=== PATIENT | male | born 1950 | race Caucasian/White ===

== ENCOUNTER 2017-09-27 12:20 | Emergency (ER) | payer OTHER ==
[~2017-09-27] VITALS: Ht 188 cm; Wt 80.8 kg
[2017-09-27 12:29] VITALS: TEMP 36.8; Ht 188 cm; Wt 80.8 kg
[2017-09-27] MEDS ORDERED: LABETALOL HCL IV 5 MG/ML 20ML IV STA ×2 (13:47→15:30)
[2017-09-27 14:54] LABS: BASO % 0.2 %; BASO ABS # 0.03 K/uL (0-0.2); EOS % 0.4 %; EOS ABS # 0.05 K/uL (0-0.5); HEMATOCRIT 37.1 % (42-52); HEMOGLOBIN 12.9 g/dL (14.0-18.0); IG# 0.03 K/uL (0.00-0.02); LYMPH % 14.5 %; LYMPH ABS # 1.75 K/uL (1.2-3.4); MEAN CELL VOLUME 95.1 fL (80-100); MEAN CORPUSCULAR HEMOGLOBIN 33.1 pg (25-34); MEAN CORPUSCULAR HGB CONC 34.8 g/dl (32-36); MEAN PLATELET VOLUME 10.9 fL (7.4-10.4); MONO % 6.5 %; MONO ABS # 0.78 K/uL (0.11-0.59); NEUT % 78.2 %; NEUT ABS # 9.42 K/uL (1.4-6.5); PLATELET COUNT 269 K/uL (130-400); RED CELL DISTRIBUTION WIDTH CV 13.1 % (11.5-14.5); RED CELL DISTRIBUTION WIDTH SD 45.2 fL (36.4-46.3); WHITE BLOOD COUNT 12.06 K/uL (4.8-10.8)
[2017-09-27 15:03] LABS: PTT PATIENT 33.1 SECONDS (21.0-31.0)
[2017-09-27 15:06] LABS: ALBUMIN 3.9 gm/dl (3.4-5.0); ALT/SGPT 28 U/L (12-78); AST/SGOT 28 U/L (15-37); BLOOD UREA NITROGEN 7 mg/dl (7-18); CALCIUM 8.8 mg/dl (8.5-10.1); CARBON DIOXIDE 26 mmol/L (21-32); CREATININE 0.87 mg/dl (0.60-1.40); GLUCOSE 88 mg/dl (70-99); POTASSIUM 3.6 mmol/L (3.5-5.1); SODIUM 138 mmol/L (136-145)
[2017-09-27 15:11] LABS: ALKALINE PHOSPHATASE 93 U/L (45-117)
--- NOTE | 2017-09-27 16:24 | DIAGNOSTIC IMAGING REPORT ---
LEFT LOWER EXTREMITY VENOUS DOPPLER HISTORY: Left leg swelling. COMPARISON STUDY: None. FINDINGS: There is normal compressibility, flow, and augmentation within the left lower extremity deep venous system. IMPRESSION: No DVT within the left lower extremity. Electronically signed by: Eder Weldon M.D. 09/27/2017 4:23 PM Dictated Date/Time: 09/27/2017 4:17 PM
--- NOTE | 2017-09-27 16:26 | DIAGNOSTIC IMAGING REPORT ---
RIGHT UPPER EXTREMITY VENOUS DOPPLER HISTORY: right arm swelling eval for dvt COMPARISON STUDY: None. FINDINGS: The right internal jugular vein is patent. There is normal flow within the right subclavian vein. There is normal flow and compressibility within the right axillary, basilic, brachial, radial, ulnar, and visualized cephalic veins. Within the deep soft tissues of the right upper arm there is a complex avascular fluid collection measuring 10.3 x 5.3 x 4.4 cm. This appears to abut the humerus. IMPRESSION: No DVT within the right upper extremity. A 10.2 x 5.2 x 4.4 cm complex fluid collection within the deep soft tissues of the right upper arm. This is nonspecific but favors a hematoma. An abscess or cystic mass is considered less likely. However, follow-up is recommended to ensure resolution. Electronically signed by: Eder Weldon M.D. 09/27/2017 4:25 PM Dictated Date/Time: 09/27/2017 4:23 PM
[2017-09-27] MEDS ORDERED: CEPH500C PO (16:52)
[2017-09-27] MEDS ORDERED: SULF800T23 PO (16:52)
[2017-09-27] MEDS ORDERED: HYDROCHLOROTHIAZIDE 25 MG TAB PO STA (17:02)
[2017-09-27] MEDS ORDERED: HYDR12.56 PO (17:02)
[2017-09-27 17:21] VITALS: BP 176/91; PULSE 76; O2SAT 96
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
== END 2017-09-27 17:17 | disposition home or self-care (01) ==
LOC: C.EDB 12:22
DX: S40.021A Contusion of right upper arm, initial encounter (principal); S46.211A Strain of muscle, fascia and tendon of other parts of biceps, right arm, initial encounter; S80.922A Unspecified superficial injury of left lower leg, initial encounter; X58.XXXA Exposure to other specified factors, initial encounter; I10 Essential (primary) hypertension; F17.200 Nicotine dependence, unspecified, uncomplicated

== ENCOUNTER 2018-07-18 09:48 | Inpatient (IN) ==
[2018-07-18] MEDS ORDERED: CEFEPIME 2,000 MG/12.5 ML VIAL IV STA (10:34)
[2018-07-18 10:49] LABS: Basophils # (auto) 0.03 K/uL (0-0.2); Basophils % (auto) 0.2 %; Eosinophils # (auto) 0.06 K/uL (0-0.5); Eosinophils % (auto) 0.5 %; Hematocrit (blood only) 37.4 % (42-52); Immature Granulocytes # (auto) 0.06 K/uL (0.00-0.02); Immature Granulocytes % (auto) 0.5 %; Lymphocytes # (auto) 1.69 K/uL (1.2-3.4); Lymphocytes % (auto) 12.8 %; Mean Corpuscular Hgb Conc 34.8 g/dL (32-36); Mean Corpuscular Volume 94.7 fL (80-100); Mean Platelet Volume 10.5 fL (7.4-10.4); Monocytes % (auto) 7.6 %; Neutrophils # (auto) 10.33 K/uL (1.4-6.5); Neutrophils % (auto) 78.4 %; Platelet Count 437 K/uL (130-400); RDW Coefficient of Variation 12.7 % (11.5-14.5); RDW Standard Deviation 44.3 fL (36.4-46.3); Red Blood Count 3.95 M/uL (4.7-6.1); White Blood Count 13.17 K/uL (4.8-10.8)
[2018-07-18 10:56] LABS: Alanine Aminotransferase 58 U/L (12-78); Albumin Level 3.1 gm/dl (3.4-5.0); Aspartate Aminotransferase 41 U/L (15-37); BUN Creatinine Ratio 5.8 (10-20); Blood Urea Nitrogen 5 mg/dl (7-18); Calcium 9.3 mg/dl (8.5-10.1); Carbon Dioxide 23 mmol/L (21-32); Chloride 96 mmol/L (98-107); Est GFR (Non-African American) 88.9; Glucose 110 mg/dl (70-99); Potassium 3.7 mmol/L (3.5-5.1); Sodium 130 mmol/L (136-145)
[2018-07-18 10:59] LABS: Albumin Globulin Ratio 0.6 (0.9-2); Alkaline Phosphatase 97 U/L (45-117); Bilirubin,Total 0.7 mg/dl (0.2-1); Globulin 5.2 gm/dl (2.5-4.0); Total Protein 8.3 gm/dl (6.4-8.2)
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
[2018-07-18] MEDS ORDERED: INFLUENZA VACCINE HIGH DOSE 65+ 0.5 ML SYR IM ONE (14:30)
[2018-07-18] MEDS ORDERED: INFLUENZA ADMINISTRATION CHARGE ONE (14:30)
[2018-07-18] MEDS ORDERED: MoRPHine SULFATE 4 MG/ML 1 ML CARP\\VIAL IV PRN (14:44)
[2018-07-18] MEDS ORDERED: TRAMADOL HCL 50 MG TABLET PO PRN (14:44)
[2018-07-18] MEDS ORDERED: ACETAMINOPHEN 325 MG TAB PO PRN (14:44)
[2018-07-18] MEDS ORDERED: POLYETHYLENE (MIRALAX) 17 GM PACK PO PRN (14:44)
[2018-07-18] MEDS ORDERED: SODIUM CHLORIDE 0.9% 1000ML 1,000 ML IV ONE (14:44)
[2018-07-18] MEDS ORDERED: ONDANSETRON INJ 2 MG/ML 2 ML VIAL IV PRN (14:44)
[2018-07-18] MEDS ORDERED: CEFEPIME CONSULT ACTIVE PRN (14:59)
[2018-07-18] MEDS ORDERED: LORazepam 1 MG TAB PO PRN (15:50)
[2018-07-18 16:10] LABS: INR 1.1 (0.9-1.1); Partial Thromboplastin Ratio 1.4; Partial Thromboplastin Time 39.2 Seconds (21.0-31.0); Prothrombin Time 11.6 Seconds (9.0-12.0)
--- NOTE | 2018-07-18 18:27 | XRay Report ---
XR knee LT 2V routine CLINICAL HISTORY: 68 years-old Male presenting with old surgery. TECHNIQUE: Frontal and crosstable lateral views of the left knee were obtained. COMPARISON: 11/12/2009. FINDINGS: Multiple screw fixation as well as buttress plate and screw fixation of the prior comminuted intra-ar ticular tibial plateau fracture. No hardware breakage. Extensive posttraumatic deformity evident. Ost eopenia suggested. Advanced degenerative changes of the knee joint with a [id number] appearance of the medial compartment and joint space loss in the lateral compartment. Moderate knee joint effusion is present. Allowing for osteopenia, no acute fracture though the degree of posttraumatic deformity m akes evaluation difficult. Heterotopic ossification suggested projecting over the fibular head on fro ntal view. Atherosclerosis. Mild diffuse soft tissue swelling. IMPRESSION: 1. Extensive posttraumatic deformity with internal fixation of the prior tibial plateau fracture. 2. Advanced degenerative changes of the knee joint with a [id number] appearance at the medial comp artment. 3. The degree of posttraumatic deformity and the presence of osteopenia limits evaluation for acute osseous injury. Allowing for this, no hardware complication or acute osseous injury is apparent. Electronically signed by: Alfonso Almeida M.D. 07/18/2018 6:25 PM
[2018-07-18] MEDS: CEFEPIME 2,000 MG in SYRINGE 7.5 ML IV SCH (20:10)
[2018-07-18] MEDS: HEPARIN SOD 5,000 UNIT/0.5 ML VIAL SQ SCH (20:11)
--- NOTE | 2018-07-18 20:17 | History and Physical Report ---
DATE OF ADMISSION: 07/18/2018 CHIEF COMPLAINT: Left knee pain. HISTORY OF PRESENT ILLNESS: Denzel is roslyn, he is 68. He has had approximately a 5- to 7-day history of left knee pain and swelling. He presented evidently up at [facility]. He was aspirated, it was culture positive. He evidently signed out AMA and came to [facility]. I am not sure of how this all transpired. As of today on examination at approximately 5:30 p.m., he complains of some left knee pain, moderate in intensity, it is not severe. He has some swelling. He states that with his old surgery, he has some chronic swelling from time to time and in the past had been placed on p.o. antibiotics. PAST MEDICAL HISTORY: Hypertension. ALLERGIES: No known allergies. MEDICATIONS: Lisinopril. SOCIAL HISTORY: Positive for smoking and ETOH. REVIEW OF SYSTEMS: Denies any fevers, sweats, chills. He is not septic in overall appearance. Denies any blurred vision, double vision, confusion. Denies any chest pain, shortness of breath. No nausea, vomiting. He has musculoskeletal left lower extremity difficulty and pain. OBJECTIVE: GENERAL: He is alert, pleasant. He is comfortable. He is nonlabored. VITAL SIGNS: Temperature 36.7 oral, blood pressure 160/70, pulse 80. CARDIAC: Normal S1, S2, in sinus rhythm. LUNGS: Clear. ABDOMEN: Soft, nontender. EXTREMITIES: Specifically in regard to his left knee, he has some diffuse swelling, no gross deformity, but does have significant swelling. Well-healed medial based incision. He has some edema and cellulitis to lower extremity from the tibia downward. He has some small areas where his skin has actually formed ulcerations. MUSCULOSKELETAL: He has decreased range of motion. He has moderate pain with flexion and extension. He has no gross instability. LABORATORY DATA: White cell count 13.1, hematocrit 37.4, his neutrophils are elevated at 10.3, monocytes elevated to 1.0. IMAGING DATA: I did order some x-rays just today. I do not have any to look at from the computer. ASSESSMENT: Roslyn gentleman, 68, with septic arthritis of the left knee secondary to open reduction internal fixation done approximately 9 years ago. He also may have some failure of hardware. He is culture positive for septic arthritis. PLAN: At this point in time, we are not planning any urgent surgery on Mr. Farias. With the IV antibiotics to take effect at least for 24-48 hours, they do not have a planned approach. He may have to have removal of his hardware and his knee joint cleaned out, packed open. He might need a long-term PICC line. It is a little too early to tell at this point in time. His culture from [facility] was pseudomonas. I will follow along with you on a daily basis. If he needs definitive surgery, will have to ____ one of our knee specialists as well.
[2018-07-19] MEDS: CEFEPIME 2,000 MG in SYRINGE 7.5 ML IV SCH ×3 (04:19→21:09)
[2018-07-19 06:53] LABS: Basophils # (auto) 0.04 K/uL (0-0.2); Basophils % (auto) 0.4 %; Eosinophils # (auto) 0.07 K/uL (0-0.5); Eosinophils % (auto) 0.7 %; Hematocrit (blood only) 32.2 % (42-52); Hemoglobin 11.2 g/dL (14.0-18.0); Immature Granulocytes # (auto) 0.04 K/uL (0.00-0.02); Immature Granulocytes % (auto) 0.4 %; Lymphocytes # (auto) 1.77 K/uL (1.2-3.4); Lymphocytes % (auto) 17.9 %; Mean Corpuscular Hgb Conc 34.8 g/dL (32-36); Mean Corpuscular Volume 94.4 fL (80-100); Mean Platelet Volume 10.3 fL (7.4-10.4); Monocytes # (auto) 0.94 K/uL (0.11-0.59); Monocytes % (auto) 9.5 %; Neutrophils # (auto) 7.01 K/uL (1.4-6.5); Neutrophils % (auto) 71.1 %; Platelet Count 372 K/uL (130-400); RDW Coefficient of Variation 12.8 % (11.5-14.5); RDW Standard Deviation 43.7 fL (36.4-46.3); Red Blood Count 3.41 M/uL (4.7-6.1); White Blood Count 9.87 K/uL (4.8-10.8)
[2018-07-19 07:20] LABS: BUN Creatinine Ratio 10.5 (10-20); Calcium 8.7 mg/dl (8.5-10.1); Creatinine Clr Calc Pharmacy 108.5 ml/min; Est GFR (African American) 110.6; Est GFR (Non-African American) 95.4; Potassium 3.9 mmol/L (3.5-5.1)
--- NOTE | 2018-07-19 08:38 | Progress Note ---
DATE: 07/19/2018 SUBJECTIVE: He is alert, oriented this morning. Minimal complaints of pain. Swelling in his left lower extremity has decreased. He does feel subjectively better. OBJECTIVE: Temperature 36.8, blood pressure controlled, pulse 80. ASSESSMENT: Hypertension, left knee surgery reconstruction, left knee osteomyelitis. PLAN: At this point in time, I would go with the IV antibiotics. We were not planning any type of surgical intervention at this . I did discuss this with the patient. I feel he is going to need a significant reconstruction of his knee. I think his knee will be staged, removal of implants, IV antibiotics. Antibiotic beads packed with antibiotic solution and then eventually if the infection is completely cleared, may be a total knee replacement. I told him in my opinion, this will be best served at [facility] where they have assortment of experts and a team of physicians who can handle this very complicated problem. We will continue to follow him, again not planning any surgical intervention. We will continue with the IV antibiotics. I do think he will need a follow up at [facility].
[2018-07-19] MEDS: HEPARIN SOD 5,000 UNIT/0.5 ML VIAL SQ SCH ×2 (09:01→21:09)
[2018-07-19] MEDS: LISINOPRIL 10 MG TAB PO SCH (09:02)
[2018-07-19] MEDS: THIAMINE HCL 100 MG TAB PO SCH (09:03)
[2018-07-19] MEDS: FOLIC ACID 1 MG TAB PO SCH (09:03)
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
[2018-07-20] MEDS: CEFEPIME 2,000 MG in SYRINGE 7.5 ML IV SCH ×2 (04:02→12:16)
[2018-07-20 06:45] LABS: Hematocrit (blood only) 32.4 % (42-52); Hemoglobin 10.7 g/dL (14.0-18.0); Mean Corpuscular Volume 94.7 fL (80-100); Mean Platelet Volume 10.2 fL (7.4-10.4); Platelet Count 400 K/uL (130-400); RDW Coefficient of Variation 12.8 % (11.5-14.5); Red Blood Count 3.42 M/uL (4.7-6.1); White Blood Count 11.11 K/uL (4.8-10.8)
[2018-07-20 07:21] LABS: BUN Creatinine Ratio 8.6 (10-20); Calcium 8.9 mg/dl (8.5-10.1); Creatinine Clr Calc Pharmacy 99.1 ml/min; Est GFR (African American) 106.6; Potassium 4.1 mmol/L (3.5-5.1)
[2018-07-20] MEDS: HEPARIN SOD 5,000 UNIT/0.5 ML VIAL SQ SCH (09:23)
[2018-07-20] MEDS: THIAMINE HCL 100 MG TAB PO SCH (09:24)
[2018-07-20] MEDS: LISINOPRIL 10 MG TAB PO SCH (09:24)
[2018-07-20] MEDS: FOLIC ACID 1 MG TAB PO SCH (09:24)
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
[2018-07-20] MEDS ORDERED: CIPROFLOXACIN 250 MG TAB PO ONE (13:00)
--- NOTE | 2018-07-20 13:57 | Progress Note ---
DATE: 07/20/2018 Denzel is alert and oriented this morning. Minimal complaints of pain. His swelling has decreased. His pain is controlled. White cell count down to 11.1, hemoglobin 10.7. His knee seems to be improving. Cellulitis, discoloration and swelling decreased. X-rays reviewed. IMPRESSION: Complex tibial plateau fracture, treated with operative repair several years ago, now with significant degenerative changes and potential knee infection, currently being treated as such. PLAN: I would recommend a PICC line, which he is going. IV antibiotics per the cultures. I recommend he follows up with a reconstructive specialist up in [facility] for his knee issue.
[2018-07-20] MEDS ORDERED: CIPROFLOXACIN 250 MG TAB PO SCH (22:00)
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
== END 2018-07-20 13:23 | disposition home or self-care (01) | DRG 923 ==
LOC: ED 09:48 → 3N 13:25 → SUATTDRO 13:25 → 3N 14:27

== ENCOUNTER 2022-04-15 15:29 | Inpatient (IN) ==
--- NOTE | 2022-04-15 15:43 | ED Triage Note ---
Date of Service April 15, 2022 History of Present Illness This patient was briefly evaluated while in triage. An abbreviated physical exam was performed. This patient is a 72-year-old with past medical history of pseudomonas infection, septic joint, HTN, who presents to the ED for evaluation of lighthe adedness. Symptoms ongoing x1 month. Called PCP today, has not had workup completed. Pt. believes he passed out and fell recently. Physical Exam VITALS: Vitals are noted on the nurse's note and reviewed by myself. GENERAL: This is a 72 year old male, ill appearing, in no acute distress, nondiaphoretic, well-developed well-nourished. SKIN: No obvious rashes, edema, erythema HEAD: Normocephalic atraumatic. EYES: Conjunctivae without injection, sclerae without icterus. NECK: No JVD. LUNGS: No retractions or accessory muscle use. MUSCULOSKELETAL: Pt. presents in a wheelchair. NEURO: Patient was alert and oriented to person place and time. No focal neurological deficits. Initial orders for labs and / or imaging were placed and patient was placed in the waiting area until a bed is available. Please see further documentation for the full ED course.
[2022-04-15] MEDS ORDERED: SODIUM CHLORIDE 0.9% 1000ML 1,000 ML IV SCH (15:45)
[2022-04-15] MEDS ORDERED: SODIUM CHLORIDE 0.9% 1000ML 2,000 ML IV ONE (15:58)
[2022-04-15] MEDS ORDERED: CEFEPIME 2,000 MG/20 ML VIAL IV STA (15:59)
--- NOTE | 2022-04-15 16:00 | Emergency Department Note ---
Impression & Plan Sepsis, Acute hypotension, Pseudomonas aeruginosa infection, Hyponatremia, Hypokalemia, Pneumomediastinum ED Provider Note NAME: RONDA YANES AGE: 72 SEX: M : 1950 ARRIVES VIA: Walk-In INFORMANT: Patient ED PROVIDER(S): Jeremie Thomason DO CHIEF COMPLAINT: weakness HPI: Patient is a 72-year-old male with a past medical history of a septic joint, Pseudomonas infection of the left lower extremity who presents to the ER status post fall/syncope this morning. He notes he was coming out of the bathroom and passed out. He has felt very lightheaded all day. He has been losing weight over the past year. He denies any headache or change in vision. No chest pain or shortness of breath. No belly pain, nausea, vomiting or diarrhea. No dysuria, urgency or frequency. No weakness or numbness in the arms or legs. Does complain of some right shoulder pain. ROS: See above HPI for pertinent positives & negatives. A total of 10 systems reviewed and were otherwise negative. PAST MEDICAL HISTORY:See Below PAST SURGICAL HISTORY:See Below FAMILY HISTORY:See Below SOCIAL HISTORY:See Below HOME MEDICATIONS:See Below ALLERGIES:See Below VITALS:See Below PHYSICAL EXAMINATION: GENERAL: Sitting up in bed, alert, chronically ill-appearing, cachectic, dishev eled HEAD: NC/AT EYE EXAM: normal conjunctiva. PERRL and EOM's intact. OROPHARYNX: mucous membranes are moist NECK: supple, no nuchal rigidity, no adenopathy, non-tender LUNGS: Clear to auscultation. Normal chest wall mechanics HEART: tachy, S1 normal and S2 normal ABDOMEN: abdomen soft, non-tender, normo-active bowel sounds, no masses, no rebound or guarding. BACK: Back is symmetrical on inspection and there is no deformity, no midline tenderness, no CVA tenderness. UPPER EXTREMITIES: upper extremities are grossly normal. LOWER EXTREMITIES: No pitting edema. NEURO EXAM: Normal sensorium, cranial nerves II-XII intact, normal speech, no weakness of arms, no weakness of legs. No drift. Finger to nose intact. Gross sensation intact. MEDICAL DECISION MAKING: Patient is a 72-year-old male who presents the ER with above-stated complaint. He is found to be hypotensive with systolic pressures in the 60s. IV was established blood work was obtained. Labs show a leukocytosis of 19,000. No significant anemia. INR unremarkable. BMP with a hyponatremia at 127. Hypokalemia 2.7. Lactate elevated 2.4. LFTs were unremarkable. Troponin elevated 25. TSH unremarkable. UA was clean. Chest x-ray as well as CT of the head and neck was fairly unremarkable. X-ray showed no acute fracture. Patient has an obvious infection of the left lee. Patient was given IV antibiotics including vancomycin and cefepime. He was updated at bedside. Discussed with the hospitalist. Admitted to hospital for further evaluation admission with resolution of the hypotension following IV fluids and IV antibiotics. Following mission CT of the chest abdomen pelvis was obtained to the hospitalist and showed likely mediastinitis. Triage Nursing notes reviewed. Limited review of prior medical records performed Vital Signs: reviewed and remarkable for Hypotension Differential diagnosis: Differential diagnosis includes etiologies such as vasovagal event, infection, hypoglycemia, electrolyte abnormalities, cardiac sources, intracerebral event, toxicologic, neurologic, as well as others were entertained. ER treatment provided: See below Diagnostics interpreted by me: ECG: Sinus tachycardia rate of 103 Normal axis No PVCs QTC 461 Cardiac Monitoring: An order was placed for continuous cardiac monitoring. The m onitor shows a rate of 101 with sinus rhythm. Laboratory studies: As stated above and show below. Imaging studies: As described above Consultation(s): none Procedures: none Critical Care: I have personally spent 32 minutes of critical care time in the direct managemen t of this patient. This includes bedside care, interpretation of diagnostic studies, and testing, discussion with consultants, patient, and family members, and other required patient management activities. This 32 minutes is in excess of all separately billable procedures. Past Med/Surg History Medical History HTN (hypertension) Smoker Surgical History H/O left knee surgery History of surgery on lower extremity Family History Father Alzheimer disease Mother Hypertension Social History (Updated 04/15/22 @ 18:34 by Sunita Vera DO) Smoking Status: Current every day smoker Tobacco Type: Cigarettes Cigarettes Per Day: 5-10 cigarettes daily; Hx Alcohol Use: Yes Alcohol type: beer Alcohol Intake Frequency: 2-3 x/Week Alcohol Intake Frequency Comment: 6 beers per night but hasnt drank in a month Hx Substance Use: No Preferred Language: Wolof Communication Ability: Effective Beliefs That Will Affect Care: None marital status: Single Current Living Situation: Significant Other Feels Safe at Home: Yes Assistive Devices: Cane Allergies Allergies Allergy/AdvReac Type Severity Reaction Status Date / Time No Known Allergies Allergy Verified 09/27/17 13:03 Home Meds Home Medications Medication Instructions Recorded Confirmed lisinopril 10 mg tablet 10 mg PO DAILY 07/18/18 04/15/22 Previous Rx's Medication Instructions Recorded Lactobacillus acidoph-L.bulgaricus 2 tab PO BID #60 tabs 07/20/18 1 million cell chewable tablet (Lactinex) Results & Data (ED) Vital Signs Vital Signs - 24 hr 04/15/22 15:41 04/15/22 16:53 04/15/22 16:53 Temperature 36.7 C Temperature Source Temporal Artery Scan Pulse Rate 87 Pulse Rate [Apical] 122 H Pulse Rhythm Regular Pulse Strength Normal Respiratory Rate 18 20 Respiratory Effort / Characteristics Non-Labored Spontaneous Respiratory Depth Normal Respiratory Pattern Regular Blood Pressure 64/41 L Blood Pressure [Right Arm] 140/80 Blood Pressure Mean 48 Blood Pressure Mean [Right Arm] 100 Blood Pressure Position Sitting Pulse Oximetry 100 95 Oxygen Delivery Method Room Air Room Air Sepsis Recent Fever Within 48 Hours No Sepsis New/Unexplained Change in Mental Status No Sepsis Action Taken by Nursing No Action Required 04/15/22 16:53 04/15/22 17:44 Temperature Temperature Source Pulse Rate 122 H Pulse Rate [Apical] 111 H Pulse Rhythm Pulse Strength Respiratory Rate 20 18 Respiratory Effort / Characteristics Respiratory Depth Respiratory Pattern Blood Pressure Blood Pressure [Right Arm] 109/55 L Blood Pressure Mean Blood Pressure Mean [Right Arm] 73 Blood Pressure Position Pulse Oximetry 95 Oxygen Delivery Method Room Air Sepsis Recent Fever Within 48 Hours Sepsis New/Unexplained Change in Mental Status Sepsis Action Taken by Nursing Laboratory Data Result diagrams: 04/15/22 15:51 04/15/22 15:51 Lab Results 04/15/22 04/15/22 04/15/22 Range/Units 15:51 15:51 15:51 WBC 19.44 H (4.8-10.8) K/ul RBC 3.28 L (4.63-6.08) M/uL Hgb 10.7 L (14.0-18.0) g/dl Hct 30.9 L (40.1-51.0) % MCV 94.2 (80.0-100.0) fL MCH 32.6 (25.0-34.0) pg MCHC 34.6 (32.0-36.0) g/dL RDW Std Deviation 46.2 (36.4-46.3) fL RDW Coeff of [place] 13.4 (11.5-14.5) % Plt Count 301 (130-400) K/uL MPV 10.8 (9.4-12.4) fL Immature Gran % (Auto) 0.7 % Neut % (Auto) 83.3 % Lymph % (Auto) 8.1 % [place] % (Auto) 7.5 % Eos % (Auto) 0.2 % Baso % (Auto) 0.2 % Neut # (Auto) 16.22 H (1.4-6.5) K/uL Lymph # (Auto) 1.57 (1.2-3.4) K/uL [place] # (Auto) 1.45 H (0.24-0.82) K/uL Eos # (Auto) 0.03 (0-0.50) K/uL Baso # (Auto) 0.03 (0-0.2) K/uL Immature Gran # (Auto) 0.14 H (0.00-0.02) K/uL PT 11.5 (9.0-12.0) Seconds INR 1.1 (0.9-1.1) APTT 35.7 H (21.0-31.0) Seconds PTT Ratio 1.3 Sodium (136-145) mmol/L Potassium (3.5-5.1) mmol/L Chloride (98-107) mmol/L Carbon Dioxide (21-32) mmol/L Anion Gap (3-11) BUN (6-23) mg/dl Creatinine (0.6-1.4) mg/dl Est Cr Clr Drug Dosing Est GFR ( Amer) ml/min Est GFR (Non-Af Amer) ml/min BUN/Creatinine Ratio (10-20) Glucose (70-99(Fasting)) mg/dl Osmolality (280-300) mOsm/kg Calcium (8.5-10.1) mg/dl Phosphorus (2.5-4.9) mg/dl Magnesium (1.7-2.4) mg/dl Iron (35-175) mcg/dl Unsaturated IBC (155-355) mcg/dl Ferritin (8-388) ng/ml Total Bilirubin (0.2-1.0) mg/dl AST (13-39) U/L ALT (7-52) U/L Alkaline Phosphatase (34-104) U/L Total Creatine Kinase (30-223) U/L Troponin I High Sens (0-20) pg/ml Total Protein (6.0-8.3) gm/dl Albumin (3.4-5.0) gm/dl Globulin (2.5-4.0) gm/dl Albumin/Globulin Ratio (0.9-2) Procalcitonin (0-0.5) ng/ml TSH (0.300-4.500) uIu/ml Urine Color Urine Appearance (Clear) Urine pH (4.5-7.5) Ur Specific [place] (1.000-1.030) Urine Protein (Negative) Urine Glucose (UA) (Negative) Urine Ketones (Negative) Urine Blood (Negative) Urine Nitrite (Negative) Urine Bilirubin (Negative) Urine Urobilinogen (Negative) Ur Leukocyte Esterase (Negative) SARS-CoV-2 (PCR) (Negative) Influenza Type A (PCR) (Neg) Influenza Type B (PCR) (Neg) RSV (RT-PCR) (Neg) Blood Type O Positive Antibody Screen NEGATIVE 04/15/22 04/15/22 04/15/22 Range/Units 15:51 15:51 15:51 WBC (4.8-10.8) K/ul RBC (4.63-6.08) M/uL Hgb (14.0-18.0) g/dl Hct (40.1-51.0) % MCV (80.0-100.0) fL MCH (25.0-34.0) pg MCHC (32.0-36.0) g/dL RDW Std Deviation (36.4-46.3) fL RDW Coeff of [place] (11.5-14.5) % Plt Count (130-400) K/uL MPV (9.4-12.4) fL Immature Gran % (Auto) % Neut % (Auto) % Lymph % (Auto) % [place] % (Auto) % Eos % (Auto) % Baso % (Auto) % Neut # (Auto) (1.4-6.5) K/uL Lymph # (Auto) (1.2-3.4) K/uL [place] # (Auto) (0.24-0.82) K/uL Eos # (Auto) (0-0.50) K/uL Baso # (Auto) (0-0.2) K/uL Immature Gran # (Auto) (0.00-0.02) K/uL PT (9.0-12.0) Seconds INR (0.9-1.1) APTT (21.0-31.0) Seconds PTT Ratio Sodium 127 L (136-145) mmol/L Potassium 2.7 L (3.5-5.1) mmol/L Chloride 86 L (98-107) mmol/L Carbon Dioxide 30 (21-32) mmol/L Anion Gap 11 (3-11) BUN 13 (6-23) mg/dl Creatinine 1.03 (0.6-1.4) mg/dl Est Cr Clr Drug Dosing Not Reportable Est GFR ( Amer) 84.3 ml/min Est GFR (Non-Af Amer) 72.7 ml/min BUN/Creatinine Ratio 12.6 (10-20) Glucose 117 H (70-99(Fasting)) mg/dl Osmolality (280-300) mOsm/kg Calcium 9.3 (8.5-10.1) mg/dl Phosphorus 3.1 (2.5-4.9) mg/dl Magnesium 1.6 L (1.7-2.4) mg/dl Iron 57 (35-175) mcg/dl Unsaturated IBC 181 (155-355) mcg/dl Ferritin 992.6 H (8-388) ng/ml Total Bilirubin 1.3 H (0.2-1.0) mg/dl AST 23 (13-39) U/L ALT 18 (7-52) U/L Alkaline Phosphatase 84 (34-104) U/L Total Creatine Kinase 137 (30-223) U/L Troponin I High Sens 25.2 H (0-20) pg/ml Total Protein 6.9 (6.0-8.3) gm/dl Albumin 3.8 (3.4-5.0) gm/dl Globulin 3.1 (2.5-4.0) gm/dl Albumin/Globulin Ratio 1.2 (0.9-2) Procalcitonin (0-0.5) ng/ml TSH 1.483 (0.300-4.500) uIu/ml Urine Color Urine Appearance (Clear) Urine pH (4.5-7.5) Ur Specific [place] (1.000-1.030) Urine Protein (Negative) Urine Glucose (UA) (Negative) Urine Ketones (Negative) Urine Blood (Negative) Urine Nitrite (Negative) Urine Bilirubin (Negative) Urine Urobilinogen (Negative) Ur Leukocyte Esterase (Negative) SARS-CoV-2 (PCR) (Negative) Influenza Type A (PCR) (Neg) Influenza Type B (PCR) (Neg) RSV (RT-PCR) (Neg) Blood Type Antibody Screen 04/15/22 04/15/22 04/15/22 Range/Units 15:51 15:51 16:47 WBC (4.8-10.8) K/ul RBC (4.63-6.08) M/uL Hgb (14.0-18.0) g/dl Hct (40.1-51.0) % MCV (80.0-100.0) fL MCH (25.0-34.0) pg MCHC (32.0-36.0) g/dL RDW Std Deviation (36.4-46.3) fL RDW Coeff of [place] (11.5-14.5) % Plt Count (130-400) K/uL MPV (9.4-12.4) fL Immature Gran % (Auto) % Neut % (Auto) % Lymph % (Auto) % [place] % (Auto) % Eos % (Auto) % Baso % (Auto) % Neut # (Auto) (1.4-6.5) K/uL Lymph # (Auto) (1.2-3.4) K/uL [place] # (Auto) (0.24-0.82) K/uL Eos # (Auto) (0-0.50) K/uL Baso # (Auto) (0-0.2) K/uL Immature Gran # (Auto) (0.00-0.02) K/uL PT (9.0-12.0) Seconds INR (0.9-1.1) APTT (21.0-31.0) Seconds PTT Ratio Sodium (136-145) mmol/L Potassium (3.5-5.1) mmol/L Chloride (98-107) mmol/L Carbon Dioxide (21-32) mmol/L Anion Gap (3-11) BUN (6-23) mg/dl Creatinine (0.6-1.4) mg/dl Est Cr Clr Drug Dosing Est GFR ( Amer) ml/min Est GFR (Non-Af Amer) ml/min BUN/Creatinine Ratio (10-20) Glucose (70-99(Fasting)) mg/dl Osmolality 261 L (280-300) mOsm/kg Calcium (8.5-10.1) mg/dl Phosphorus (2.5-4.9) mg/dl Magnesium (1.7-2.4) mg/dl Iron (35-175) mcg/dl Unsaturated IBC (155-355) mcg/dl Ferritin (8-388) ng/ml Total Bilirubin (0.2-1.0) mg/dl AST (13-39) U/L ALT (7-52) U/L Alkaline Phosphatase (34-104) U/L Total Creatine Kinase (30-223) U/L Troponin I High Sens (0-20) pg/ml Total Protein (6.0-8.3) gm/dl Albumin (3.4-5.0) gm/dl Globulin (2.5-4.0) gm/dl Albumin/Globulin Ratio (0.9-2) Procalcitonin 0.06 (0-0.5) ng/ml TSH (0.300-4.500) uIu/ml Urine Color Urine Appearance (Clear) Urine pH (4.5-7.5) Ur Specific [place] (1.000-1.030) Urine Protein (Negative) Urine Glucose (UA) (Negative) Urine Ketones (Negative) Urine Blood (Negative) Urine Nitrite (Negative) Urine Bilirubin (Negative) Urine Urobilinogen (Negative) Ur Leukocyte Esterase (Negative) SARS-CoV-2 (PCR) NEGATIVE (Negative) Influenza Type A (PCR) Negative (Neg) Influenza Type B (PCR) Negative (Neg) RSV (RT-PCR) Negative (Neg) Blood Type Antibody Screen 04/15/22 Range/Units 17:40 WBC (4.8-10.8) K/ul RBC (4.63-6.08) M/uL Hgb (14.0-18.0) g/dl Hct (40.1-51.0) % MCV (80.0-100.0) fL MCH (25.0-34.0) pg MCHC (32.0-36.0) g/dL RDW Std Deviation (36.4-46.3) fL RDW Coeff of [place] (11.5-14.5) % Plt Count (130-400) K/uL MPV (9.4-12.4) fL Immature Gran % (Auto) % Neut % (Auto) % Lymph % (Auto) % [place] % (Auto) % Eos % (Auto) % Baso % (Auto) % Neut # (Auto) (1.4-6.5) K/uL Lymph # (Auto) (1.2-3.4) K/uL [place] # (Auto) (0.24-0.82) K/uL Eos # (Auto) (0-0.50) K/uL Baso # (Auto) (0-0.2) K/uL Immature Gran # (Auto) (0.00-0.02) K/uL PT (9.0-12.0) Seconds INR (0.9-1.1) APTT (21.0-31.0) Seconds PTT Ratio Sodium (136-145) mmol/L Potassium (3.5-5.1) mmol/L Chloride (98-107) mmol/L Carbon Dioxide (21-32) mmol/L Anion Gap (3-11) BUN (6-23) mg/dl Creatinine (0.6-1.4) mg/dl Est Cr Clr Drug Dosing Est GFR ( Amer) ml/min Est GFR (Non-Af Amer) ml/min BUN/Creatinine Ratio (10-20) Glucose (70-99(Fasting)) mg/dl Osmolality (280-300) mOsm/kg Calcium (8.5-10.1) mg/dl Phosphorus (2.5-4.9) mg/dl Magnesium (1.7-2.4) mg/dl Iron (35-175) mcg/dl Unsaturated IBC (155-355) mcg/dl Ferritin (8-388) ng/ml Total Bilirubin (0.2-1.0) mg/dl AST (13-39) U/L ALT (7-52) U/L Alkaline Phosphatase (34-104) U/L Total Creatine Kinase (30-223) U/L Troponin I High Sens (0-20) pg/ml Total Protein (6.0-8.3) gm/dl Albumin (3.4-5.0) gm/dl Globulin (2.5-4.0) gm/dl Albumin/Globulin Ratio (0.9-2) Procalcitonin (0-0.5) ng/ml TSH (0.300-4.500) uIu/ml Urine Color Yellow Urine Appearance Clear (Clear) Urine pH 7.0 (4.5-7.5) Ur Specific [place] 1.005 (1.000-1.030) Urine Protein Negative (Negative) Urine Glucose (UA) Negative (Negative) Urine Ketones Negative (Negative) Urine Blood Negative (Negative) Urine Nitrite Negative (Negative) Urine Bilirubin Negative (Negative) Urine Urobilinogen Negative (Negative) Ur Leukocyte Esterase Negative (Negative) SARS-CoV-2 (PCR) (Negative) Influenza Type A (PCR) (Neg) Influenza Type B (PCR) (Neg) RSV (RT-PCR) (Neg) Blood Type Antibody Screen Administered Medications Pantoprazole Sodium 40 mg/ (Dextrose) 100 mls @ 20 mls/hr IV Q5H NURIA Stop: 05/15/22 19:29 Last Admin: 04/15/22 22:28 Dose: 8 mg/hr, 20 mls/hr Documented By: MED Discontinued Medications Sodium Chloride (Nss 1000ml) 1,000 mls @ 999 mls/hr IV .Q1H1M NURIA Stop: 04/15/22 16:45 Last Infusion: 04/15/22 17:27 Dose: 0 mls/hr Documented By: Admin: 04/15/22 16:25 Dose: 999 mls/hr Documented By: CLAUDE Sodium Chloride (Nss 1000ml) 2,000 mls @ 999 mls/hr IV .Q2H1M ONE Stop: 04/15/22 17:58 Last Infusion: 04/15/22 18:48 Dose: 0 mls/hr Documented By: Admin: 04/15/22 16:25 Dose: 999 mls/hr Documented By: CLAUDE Cefepime HCl (Maxipime) 2,000 mg in 20 mls @ 5 mls/min IV NOW STA; Protocol Stop: 04/15/22 16:02 Last Admin: 04/15/22 16:25 Dose: 5 mls/min Documented By: CLAUDE Potassium Chloride (K Neel / Wtr) 10 meq in 100 mls @ 100 mls/hr IV Q1H NURIA; Protocol Stop: 04/15/22 19:29 Last Infusion: 04/15/22 20:19 Dose: 0 mls/hr Documented By: wire drawing machine tender: 04/15/22 19:28 Dose: 100 mls/hr Documented By: Infusion: 04/15/22 19:16 Dose: 0 mls/hr Documented By: wire drawing machine tender: 04/15/22 17:32 Dose: 100 mls/hr Documented By: OL Vancomycin HCl 1,250 mg/ (Sodium Chloride) 525 mls @ 200 mls/hr IV NOW ONE Stop: 04/15/22 20:43 Last Admin: 04/15/22 19:28 Dose: 200 mls/hr Documented By: CLAUDE Pantoprazole Sodium 80 mg/ (Dextrose) 120 mls @ 400 mls/hr IV NOW ONE Stop: 04/15/22 19:32 Last Admin: 04/15/22 22:05 Dose: 400 mls/hr Documented By: MED Potassium Chloride (Potassium Chloride Crtab 20 Meq Tabcr) 40 meq PO NOW STA Stop: 04/15/22 18:45 Last Admin: 04/15/22 20:15 Dose: 40 meq Documented By: MED Imaging Data Radiologist's Impression: Chest X-Ray 04/15/22 15:44 XR chest 1V portable HISTORY: 72 years-old Male weakness acute weakness COMPARISON: None TECHNIQUE: AP view of the chest FINDINGS: Cardiac mediastinal and hilar silhouettes are within normal limits. Lungs are mildly hyperinflated. No pneumothorax, pleural effusion, airspace consolidation or overt pulmonary edema. There is a questioned nodular focus overlying the right lateral upper chest at the level of the inferior scapula. Degenerative changes of the shoulders and spine. Mild lumbar levoscoliosis. IMPRESSION: 1. Hyperinflation without acute process of the chest. 2. Questioned ill-defined nodular density of the right lateral upper lung is favored to represent summation density. Attention at follow-up recommended. ACT 112: Negative or not required by law. The above report was generated using voice recognition software. It may contain grammatical, syntax or spelling errors. Electronically signed by: Bhavik Salgado M.D. 04/15/2022 6:[address] 04/15/22 15:58 CT cervical spine wo con CLINICAL HISTORY: 72 years-old Male with fall. Acute head and neck injury status post fall COMPARISON: Head CT of same day TECHNIQUE: Multiple axial CT images of the cervical spine were obtained without contrast. A dose lowering technique was utilized adhering to the principles of ALARA. FINDINGS: C7 vertebral body hemangioma. Moderate mid to lower cervical spine predominant spondylitic spurring with at least mild multilevel intervertebral disc space narrowing and mild to moderate facet arthrosis. Nuchal ligament calcifications. Moderate C1-C2 degeneration. No acute cervical spine fracture or subluxation. Demineralization of the hard palate and maxilla. The patient is jeremy ntulous. Postoperative changes of the paranasal sinuses. Multilevel neural foraminal narrowing. Mild biapical pleural-parenchymal scarring without pneumothorax. No prevertebral edema. Calcified plaque of the carotid bulbs. IMPRESSION: No acute cervical spine fracture or subluxation. ACT 112: Negative or not required by law. The above report was generated using voice recognition software. It may contain grammatical, syntax or spelling errors. Electronically signed by: Bhavik Salgado M.D. 04/15/2022 5:[address] 04/15/22 15:58 CT head/brain wo con CLINICAL HISTORY: 72 years-old Male with west. Acute headache TECHNIQUE: Multiple axial CT images of the head were obtained without contrast. A dose lowering technique was utilized adhering to the principles of ALARA. CT DOSE: 1037.05 mGy.cm COMPARISON: CT cervical spine of same day FINDINGS: No acute intracranial hemorrhage, midline shift, intracranial mass, hydrocephalus, territorial ischemia or abnormal extra-axial collection. Involutional changes. Cerebral vascular calcifications. The calvarium is intact. Mastoid air cells are clear. Postoperative changes of the paranasal sinuses with mild mucosal thickening. IMPRESSION: No acute intracranial abnormality. ACT 112: Negative or not required by law. The above report was generated using voice recognition software. It may contain grammatical, syntax or spelling errors. Electronically signed by: Bhavik Salgado M.D. 04/15/2022 5:30 PM Tibia/Fibula X-Ray 04/15/22 16:00 XR tibia fibula LT 2V HISTORY: 72 years-old Male l tib pain acute pain of the left lower leg COMPARISON: Left knee radiographs 07/18/2018 TECHNIQUE: 2 views of the left tibia and fibula FINDINGS: Extensive ORIF changes of the tibia are redemonstrated which includes proximal large cannulated screws with lateral diaphyseal plate and screw fusion. No evidence of hardware complication identified. Spurring of the calcaneus. Severe tricompartmental osteoarthritis of the knee. Osteoarthritis of the knee and ankle also noted. Arterial calcifications. No acute fracture or dislocation identified. Soft tissue prominence of the lower leg. IMPRESSION: 1. No acute fracture or dislocation identified. 2. Degenerative and postoperative changes as above. ACT 112: Negative or not required by law. The above report was generated using voice recognition software. It may contain grammatical, syntax or spelling errors. Electronically signed by: Bhavik Salgado M.D. 04/15/2022 4:34 PM Shoulder X-Ray 04/15/22 16:01 XR shoulder RT min 2V routine CLINICAL HISTORY: r shoulder pain TECHNIQUE: 3 views of the right shoulder were obtained. Comparison: None available at the time of this dictation. FINDINGS: There is no evidence of an acute fracture. Degenerative changes are seen in the glenohumeral joint. The overlying soft tissues are unremarkable. The visualized portions of the lungs are clear. IMPRESSION: Degenerative changes without evidence of acute abnormality. ACT 112: Negative or not required by law. Electronically signed by: Owen Bledsoe M.D. 04/15/2022 4:34 PM Femur X-Ray 04/15/22 17:52 XR hip RT 2V w pelvis, XR femur RT 2V routine HISTORY: 72 years-old Male r hip pain s/p fall . Acute pain of the right hip a nd thigh status post fall COMPARISON: None TECHNIQUE: AP view of the pelvis with 2 views the right hip and 2 views of the right femur FINDINGS: PELVIS/RIGHT HIP: Demineralized appearance of the bones with moderate osteoarthritis of the hips. No acute fracture, dislocation, or avascular necrosis. Arterial calcifications. Unremarkable soft tissues. RIGHT FEMUR: Arterial calcifications. No acute fracture, dislocation or large joint effusion of the knee identified. There is at least mild tricompartmental osteoarthritis of the right knee. Partially imaged left knee hardware. IMPRESSION: No acute fracture or dislocation. ACT 112: Negative or not required by law. The above report was generated using voice recognition software. It may contain grammatical, syntax or spelling errors. Electronically signed by: Bhavik Salgado M.D. 04/15/2022 6:42 PM Hip/Pelvis X-Ray 04/15/22 17:52 XR hip RT 2V w pelvis, XR femur RT 2V routine HISTORY: 72 years-old Male r hip pain s/p fall . Acute pain of the right hip and thigh status post fall COMPARISON: None TECHNIQUE: AP view of the pelvis with 2 views the right hip and 2 views of the right femur FINDINGS: PELVIS/RIGHT HIP: Demineralized appearance of the bones with moderate osteoarthritis of the hips. No acute fracture, dislocation, or avascular necrosis. Arterial calcifications. Unremarkable soft tissues. RIGHT FEMUR: Arterial calcifications. No acute fracture, dislocation or large joint effusion of the knee identified. There is at least mild tricompartmental osteoarthritis of the right knee. Partially imaged left knee hardware. IMPRESSION: No acute fracture or dislocation. ACT 112: Negative or not required by law. The above report was generated using voice recognition software. It may contain grammatical, syntax or spelling errors. Electronically signed by: Bhavik Salgado M.D. 04/15/2022 6:42 PM Discharge Plan Visit Data Chief Complaint: Weakness Stated Complaint: LIGHT HEADED, NOT EATING, WEAKNESS ED Provider: Jeremie Thomason Discharge Problem: Sepsis, Acute hypotension, Pseudomonas aeruginosa infection, Hyponatremia, Hypokalemia, Pneumomediastinum Discharge Instructions Interventions: ED Discharge Assessment Last Done: 04/15/22 20:42
[2022-04-15 16:03] LABS: Basophils # (auto) 0.03 K/uL (0-0.2); Basophils % (auto) 0.2 %; Eosinophils # (auto) 0.03 K/uL (0-0.50); Eosinophils % (auto) 0.2 %; Hematocrit (blood only) 30.9 % (40.1-51.0); Hemoglobin 10.7 g/dl (14.0-18.0); Immature Granulocytes # (auto) 0.14 K/uL (0.00-0.02); Immature Granulocytes % (auto) 0.7 %; Lymphocytes # (auto) 1.57 K/uL (1.2-3.4); Lymphocytes % (auto) 8.1 %; Mean Corpuscular Hemoglobin 32.6 pg (25.0-34.0); Mean Corpuscular Hgb Conc 34.6 g/dL (32.0-36.0); Mean Corpuscular Volume 94.2 fL (80.0-100.0); Mean Platelet Volume 10.8 fL (9.4-12.4); Monocytes # (auto) 1.45 K/uL (0.24-0.82); Monocytes % (auto) 7.5 %; Neutrophils # (auto) 16.22 K/uL (1.4-6.5); Neutrophils % (auto) 83.3 %; Platelet Count 301 K/uL (130-400); RDW Coefficient of Variation 13.4 % (11.5-14.5); RDW Standard Deviation 46.2 fL (36.4-46.3); Red Blood Count 3.28 M/uL (4.63-6.08); White Blood Count 19.44 K/ul (4.8-10.8)
[2022-04-15 16:15] LABS: INR 1.1 (0.9-1.1); Partial Thromboplastin Ratio 1.3; Partial Thromboplastin Time 35.7 Seconds (21.0-31.0); Prothrombin Time 11.5 Seconds (9.0-12.0)
[2022-04-15 16:24] LABS: Alanine Aminotransferase 18 U/L (7-52); Albumin Globulin Ratio 1.2 (0.9-2); Albumin Level 3.8 gm/dl (3.4-5.0); Alkaline Phosphatase 84 U/L (34-104); Anion Gap 11 (3-11); Aspartate Aminotransferase 23 U/L (13-39); BUN Creatinine Ratio 12.6 (10-20); Bilirubin,Total 1.3 mg/dl (0.2-1.0); Blood Urea Nitrogen 13 mg/dl (6-23); Calcium 9.3 mg/dl (8.5-10.1); Carbon Dioxide 30 mmol/L (21-32); Chloride 86 mmol/L (98-107); Est GFR (African American) 84.3 ml/min; Est GFR (Non-African American) 72.7 ml/min; Globulin 3.1 gm/dl (2.5-4.0); Glucose 117 mg/dl (70-99(Fasting)); Magnesium 1.6 mg/dl (1.7-2.4); Potassium 2.7 mmol/L (3.5-5.1); Sodium 127 mmol/L (136-145); Total Protein 6.9 gm/dl (6.0-8.3)
[2022-04-15 16:30] LABS: Troponin I High Sensitivity 25.2 pg/ml (0-20)
--- NOTE | 2022-04-15 16:35 | XRay Report ---
XR shoulder RT min 2V routine CLINICAL HISTORY: r shoulder pain TECHNIQUE: 3 views of the right shoulder were obtained. Comparison: None available at the time of this dictation. FINDINGS: There is no evidence of an acute fracture. Degenerative changes are seen in the glenohumeral joint. T he overlying soft tissues are unremarkable. The visualized portions of the lungs are clear. IMPRESSION: Degenerative changes without evidence of acute abnormality. ACT 112: Negative or not required by law. Electronically signed by: Owen Bledsoe M.D. 04/15/2022 4:34 PM
--- NOTE | 2022-04-15 16:35 | XRay Report ---
XR tibia fibula LT 2V HISTORY: 72 years-old Male l tib pain acute pain of the left lower leg COMPARISON: Left knee radiographs 07/18/2018 TECHNIQUE: 2 views of the left tibia and fibula FINDINGS: Extensive ORIF changes of the tibia are redemonstrated which includes proximal large cannulated screw s with lateral diaphyseal plate and screw fusion. No evidence of hardware complication identified. Sp urring of the calcaneus. Severe tricompartmental osteoarthritis of the knee. Osteoarthritis of the kn ee and ankle also noted. Arterial calcifications. No acute fracture or dislocation identified. Soft t issue prominence of the lower leg. IMPRESSION: 1. No acute fracture or dislocation identified. 2. Degenerative and postoperative changes as above. ACT 112: Negative or not required by law. The above report was generated using voice recognition software. It may contain grammatical, syntax o r spelling errors. Electronically signed by: Bhavik Salgado M.D. 04/15/2022 4:34 PM
[2022-04-15] MEDS: POTASSIUM CHLORIDE / WTR 10 MEQ/100 ML PLCT IV SCH ×2 (17:32→19:28)
--- NOTE | 2022-04-15 17:33 | CT Scan Report ---
CT head/brain wo con CLINICAL HISTORY: 72 years-old Male with west. Acute headache TECHNIQUE: Multiple axial CT images of the head were obtained without contrast. A dose lowering tech nique was utilized adhering to the principles of ALARA. CT DOSE: 1037.05 mGy.cm COMPARISON: CT cervical spine of same day FINDINGS: No acute intracranial hemorrhage, midline shift, intracranial mass, hydrocephalus, territorial ischem ia or abnormal extra-axial collection. Involutional changes. Cerebral vascular calcifications. The calvarium is intact. Mastoid air cells are clear. Postoperative changes of the paranasal sinuses with mild mucosal thickening. IMPRESSION: No acute intracranial abnormality. ACT 112: Negative or not required by law. The above report was generated using voice recognition software. It may contain grammatical, syntax o r spelling errors. Electronically signed by: Bhavik Salgado M.D. 04/15/2022 5:30 PM
--- NOTE | 2022-04-15 17:43 | CT Scan Report ---
CT cervical spine wo con CLINICAL HISTORY: 72 years-old Male with fall. Acute head and neck injury status post fall COMPARISON: Head CT of same day TECHNIQUE: Multiple axial CT images of the cervical spine were obtained without contrast. A dose low ering technique was utilized adhering to the principles of ALARA. FINDINGS: C7 vertebral body hemangioma. Moderate mid to lower cervical spine predominant spondylitic spurring with at least mild multilevel intervertebral disc space narrowing and mild to moderate facet arthrosis. Nuchal ligament calcifications. Moderate C1-C2 degeneration. No acute cervical spine frac ture or subluxation. Demineralization of the hard palate and maxilla. The patient is edentulous. Post operative changes of the paranasal sinuses. Multilevel neural foraminal narrowing. Mild biapical pleural-parenchymal scarring without pneumothorax. No prevertebral edema. Calcified eduarda que of the carotid bulbs. IMPRESSION: No acute cervical spine fracture or subluxation. ACT 112: Negative or not required by law. The above report was generated using voice recognition software. It may contain grammatical, syntax o r spelling errors. Electronically signed by: Bhavik Salgado M.D. 04/15/2022 5:41 PM
[2022-04-15 17:49] LABS: Influenza A virus by PCR Negative (Neg); Influenza B virus by PCR Negative (Neg); RSV by PCR Negative (Neg); SARS CoV2 RNA(COVID-19) Ceph NEGATIVE (Negative)
[2022-04-15 18:02] LABS: Appearance Urine Clear (Clear); Bilirubin Urine Negative (Negative); Blood Urine Negative (Negative); Color Urine Yellow; Glucose Urine UA Negative (Negative); Ketones Urine Negative (Negative); Leukocyte Esterase Urine Negative (Negative); Nitrite Urine Negative (Negative); Protein Urine Negative (Negative); Specific Gravity Urine 1.005 (1.000-1.030); Urobilinogen Urine Negative (Negative)
[2022-04-15] MEDS ORDERED: VANCOMYCIN HCL 1,250 MG in SODIUM CHLORIDE 0.9% 500 ML IV ONE (18:06)
[2022-04-15] MEDS ORDERED: VANCOMYCIN CONSULT ACTIVE PRN (18:06)
--- NOTE | 2022-04-15 18:14 | History & Physical Report ---
Date of Service April 15, 2022 Assessment & Plan (1) GIB (gastrointestinal bleeding): Plan: Patient presents with syncopal collapse after described episode of postural orthostasis and at least one month of dark tarry stools and inability to eat. He is more anemic now (10.7/39) than in 2019 which was normal. There is a possibility of an acute upper GI bleed at this point. There is a heavy drinking history of 6 beers nightly up until one month ago when he couldn't tolerate alcohol any longer. He is also a smoker. PPI drip now, FOBT, strict I/Os, ensure adequate volume resuscitation while also monitoring his sodium. Na cannot rise past 135 by tomorrow afternoon. GI consult. If there is any brisk bleeding overnight or CT scans reveal any evidence of liver disease, consider the addition of octreotide. Stool culture including rule out cdiff for ongoing loose stools reported (2) Sepsis: Plan: Patient denies fevers or chills but is hemodynamically unstable and has an elevated WBC count. Will continue broad spectrum antibiotics empirically, however, there is no clear source of infection at this time. Procalcitonin and lactate are pending. (3) Dyspnea on exertion: Plan: Likely multifactorial given malnourished state, possible GI bleeding, electrolyte disorders, etc. Echo in am. CT chest this evening. (4) Hyponatremia: Plan: This patient is hypovolemic. Given 3L NSS in the ER. Will trend sodium this evening and ensure not rising beyond 135 by tomorrow afternoon. Will scan chest with CT to ensure no evidence of lung nodules that may be malignancy given long smoker history and weight loss. (5) Hypokalemia: Plan: 2/2 poor PO intake. Replace potassium and magnesium now. Repeat in am. (6) Anemia: Plan: Possible acute blood loss anemia. Iron studies pending. Trend CBC. FOBT. GI consult. (7) Severe protein-calorie malnutrition: Plan: nutrition consult. CT chest/abd/pel to screen for contributing factors. (8) Weight loss, abnormal: Plan: 30 lb weight loss in the past 2 months. (9) Orthostasis: Plan: likely related to hypovolemia possible from GI bleeding as above. (10) Smoker: Plan: Smoking cessation advised. Eulalio WHITE (11) Thrush, oral: Plan: Poor dentition and overall hygiene. Thrush on both sides of his tongue, which may be contributing to eating issues and weight loss, especially if it extends into the esophagus. GI consult to consider EGD. (12) Weakness: Plan: a result of all issues above. PT/OT consultations requested. (13) DVT prophylaxis: Plan: SCDs/ambulation as tolerated. Chemoprophylaxis contraindicated in setting of possible acute blood loss anemia. Full Code confirmed with him on admission Dispo- to PCU DO [facility] Hospitalist History of Present Illness Chief Complaint: weakness/fall Primary Care Provider: Vivek Castillo MD 72 yo man with a history of lifelong smoking presents with 30 pound weight loss in the last couple of months. He reports a decreased appetite during this time and states that when he eats anything solid, he will experience early satiety and dry heaves without vomiting. He reports ongoing loose stools that he describes as black in color. He denies any abdominal pain. He denies any pain with swallowing. Significant other is at bedside and having lived with him for 16 years, she states that he will only eat a couple of bites of food 1-2 times per day. Patient states he can drink water and other liquids without much of an issue. He is currently requesting a [employer]. He reports lightheadedness when going from sitting to standing position in the last few days, and states that he has been so winded he can no longer walk across the street to mother's house to give her daily medications. Over the last few days, his spouse has had to do this. The lightheadedness came before he passed out and fell today. It also happened last week. He denies any fevers or chills. He typically sleeps in the recliner and spouse states that he has been taking more naps during the day and has been very weak. The patient lives in a double wide trailer with well water but reports to only drink bottled water. No medication changes recently. Sees Dr. Castillo per his report. Allergies Allergy/AdvReac Type Severity Reaction Status Date / Time No Known Allergies Allergy Verified 09/27/17 13:03 Home Medications Medication Instructions Recorded Confirmed Type lisinopril 10 mg tablet 10 mg PO DAILY 07/18/18 04/15/22 History Lactobacillus acidoph-L.bulgaricus 2 tab PO BID #60 tabs 07/20/18 04/15/22 Rx 1 million cell chewable tablet (Lactinex) Past Med/Surg History Medical History HTN (hypertension) Smoker Surgical History H/O left knee surgery History of surgery on lower extremity Family History Father Alzheimer disease Mother Hypertension Social History (Updated 04/15/22 @ 18:34 by Sunita Vera DO) Smoking Status: Current every day smoker Tobacco Type: Cigarettes Cigarettes Per Day: 5-10 cigarettes daily; Hx Alcohol Use: Yes Alcohol type: beer Alcohol Intake Frequency: 2-3 x/Week Alcohol Intake Frequency Comment: 6 beers per night but hasnt drank in a month Hx Substance Use: No Preferred Language: Kiswahili Communication Ability: Effective Beliefs That Will Affect Care: None marital status: Single Current Living Situation: Significant Other Feels Safe at Home: Yes Assistive Devices: Cane Review of Systems Review of Systems: All systems were reviewed and negative except as indicated on HPI above. Physical Exam Physical Exam: CONSTITUTIONAL: cachectic, vitals as above, generally in no distress but appears chronically ill EYES: PERRL, normal conjunctivae, no scleral icterus, ENT: external ear and nose normal, poor dentition, whitish substance on tongue consistent with thrush NECK: trachea midline RESPIRATORY: clear to auscultation bilaterally, no crackles, rales or wheezes, normal respiratory effort CARDIOVASCULAR: tachy rate and regular rhythm, S1 and 2 heard without murmurs, gallops or rubs, no JVD, no peripheral edema CHEST: inspection of chest was normal GASTROINTESTINAL: soft, nontender, ND, no guarding MUSCULOSKELETAL: strength 5/5 throughout, he is able to sit up independently in the bed, pulling himself up with the handrails. Head is normocephalic and atraumatic SKIN: warm and dry, no rashes, wound on LLE that is scabbed over and no surrounding redness or drainage. Well healed ecchymotic area on his posterior right shoulder. NEUROLOGIC: CN 2-12 grossly intact, no sensory deficit, normal cognition, normal speech, no tremor PSYCHIATRIC: alert cooperative and oriented to person, place and time. Euthymic mood, makes good eye contact, language grossly intact, recent and remote memory grossly intact. Results & Data Results & Data ([facility]) Vital Signs (Past 12 Hours) Vital Signs Temp Pulse Pulse Resp BP BP Pulse Ox 04/15/22 17:44 111 H 18 109/55 L 04/15/22 16:53 122 H 20 95 04/15/22 16:53 122 H 20 140/80 95 04/15/22 16:53 04/15/22 15:41 36.7 C 87 18 64/41 L 100 O2 Del Method 04/15/22 17:44 04/15/22 16:53 Room Air 04/15/22 16:53 04/15/22 16:53 Room Air 04/15/22 15:41 Room Air Laboratory Results Short CBC 04/15/22 Range/Units 15:51 WBC 19.44 H (4.8-10.8) K/ul Hgb 10.7 L (14.0-18.0) g/dl Hct 30.9 L (40.1-51.0) % Plt Count 301 (130-400) K/uL BMP 04/15/22 15:51 Sodium 127 L Potassium 2.7 L Chloride 86 L Carbon Dioxide 30 BUN 13 Creatinine 1.03 Glucose 117 H Calcium 9.3 Liver Function 04/15/22 Range/Units 15:51 Total Bilirubin 1.3 H (0.2-1.0) mg/dl AST 23 (13-39) U/L ALT 18 (7-52) U/L Alkaline Phosphatase 84 (34-104) U/L Albumin 3.8 (3.4-5.0) gm/dl Urine 04/15/22 Range/Units 17:40 Urine Color Yellow Urine Appearance Clear (Clear) Urine pH 7.0 (4.5-7.5) Ur Specific [place] 1.005 (1.000-1.030) Urine Protein Negative (Negative) Urine Glucose (UA) Negative (Negative) Diagnostic Findings Short CBC 04/15/22 Range/Units 15:51 WBC 19.44 H (4.8-10.8) K/ul Hgb 10.7 L (14.0-18.0) g/dl Hct 30.9 L (40.1-51.0) % Plt Count 301 (130-400) K/uL BMP 04/15/22 15:51 Sodium 127 L Potassium 2.7 L Chloride 86 L Carbon Dioxide 30 BUN 13 Creatinine 1.03 Glucose 117 H Calcium 9.3 Liver Function 04/15/22 Range/Units 15:51 Total Bilirubin 1.3 H (0.2-1.0) mg/dl AST 23 (13-39) U/L ALT 18 (7-52) U/L Alkaline Phosphatase 84 (34-104) U/L Albumin 3.8 (3.4-5.0) gm/dl Urine 04/15/22 Range/Units 17:40 Urine Color Yellow Urine Appearance Clear (Clear) Urine pH 7.0 (4.5-7.5) Ur Specific [place] 1.005 (1.000-1.030) Urine Protein Negative (Negative) Urine Glucose (UA) Negative (Negative) Medications Administered Current Inpatient Medications Potassium Chloride (K Neel / Wtr) 10 meq in 100 mls @ 100 mls/hr IV Q1H NURIA; Protocol Stop: 04/15/22 19:29 Last Admin: 04/15/22 17:32 Dose: 100 mls/hr Vancomycin HCl 1,250 mg/ (Sodium Chloride) 525 mls @ 200 mls/hr IV NOW ONE Stop: 04/15/22 20:43 Miscellaneous Information (Vancomycin Consult Active) 1 each N/A UD PRN PRN Reason: Consult Stop: 05/15/22 18:05 Code Status & VTE Plan VTE Prophylaxis Plan VTE Prophylaxis will be ordered: Yes
[2022-04-15] MEDS ORDERED: POTASSIUM CHLORIDE CRTAB 20 MEQ TABCR PO STA (18:44)
--- NOTE | 2022-04-15 18:45 | XRay Report ---
XR hip RT 2V w pelvis, XR femur RT 2V routine HISTORY: 72 years-old Male r hip pain s/p fall . Acute pain of the right hip and thigh status post f all COMPARISON: None TECHNIQUE: AP view of the pelvis with 2 views the right hip and 2 views of the right femur FINDINGS: PELVIS/RIGHT HIP: Demineralized appearance of the bones with moderate osteoarthritis of the hips. No acute fracture, di slocation, or avascular necrosis. Arterial calcifications. Unremarkable soft tissues. RIGHT FEMUR: Arterial calcifications. No acute fracture, dislocation or large joint effusion of the knee identifie d. There is at least mild tricompartmental osteoarthritis of the right knee. Partially imaged left kn ee hardware. IMPRESSION: No acute fracture or dislocation. ACT 112: Negative or not required by law. The above report was generated using voice recognition software. It may contain grammatical, syntax o r spelling errors. Electronically signed by: Bhavik Salgado M.D. 04/15/2022 6:42 PM
--- NOTE | 2022-04-15 18:46 | XRay Report ---
XR chest 1V portable HISTORY: 72 years-old Male weakness acute weakness COMPARISON: None TECHNIQUE: AP view of the chest FINDINGS: Cardiac mediastinal and hilar silhouettes are within normal limits. Lungs are mildly hyperinflated. N o pneumothorax, pleural effusion, airspace consolidation or overt pulmonary edema. There is a questio donnell nodular focus overlying the right lateral upper chest at the level of the inferior scapula. Degen erative changes of the shoulders and spine. Mild lumbar levoscoliosis. IMPRESSION: 1. Hyperinflation without acute process of the chest. 2. Questioned ill-defined nodular density of the right lateral upper lung is favored to represent sum mation density. Attention at follow-up recommended. ACT 112: Negative or not required by law. The above report was generated using voice recognition software. It may contain grammatical, syntax o r spelling errors. Electronically signed by: Bhavik Salgado M.D. 04/15/2022 6:45 PM
[2022-04-15] MEDS ORDERED: PANTOPRAZOLE BOLUS/DRIP 1 EACH IV STA (18:59)
[2022-04-15] MEDS ORDERED: PANTOprazole 80 MG in DEXTROSE 5% 100 ML IV ONE (19:15)
[2022-04-15 19:28] LABS: Phosphorus 3.1 mg/dl (2.5-4.9)
[2022-04-15 19:43] LABS: Ferritin 992.6 ng/ml (8-388)
--- NOTE | 2022-04-15 19:45 | CT Scan Report ---
CT chest diagnostic wo con, CT abd pelvis wo con CT DOSE: 568.30 mGy.cm CLINICAL HISTORY: 72 years-old Male with smoker, weight loss. Acute weight loss with tobacco abuse TECHNIQUE: Multiaxial CT images of the chest, abdomen and pelvis were performed without contrast. A dose lowering technique was utilized adhering to the principles of ALARA. COMPARISON: None. FINDINGS: CT CHEST: No thyroid nodule or lymphadenopathy. The heart is normal in size. Extensive coronary artery calcific ations. Atherosclerosis of the thoracic aorta without aneurysm. No pneumothorax, pleural effusion, ai rspace consolidation or overt pulmonary edema. Mild pulmonary emphysema. No suspicious pulmonary nodu les or masses identified. Summation density correlated with the previously described right upper lung opacity. Minimal pleural parenchymal scarring of the lung apices. Trachea bronchial secretions with mild left mainstem and left lower lobe mucous plugging. There is a small to moderate amount of pneumo mediastinum. Limited exam secondary to respiratory motion artifact and upper extremity positioning. U nremarkable soft tissues. No acute fracture or suspicious bone lesion identified. Mid thoracic Scoliosis. CT ABDOMEN/PELVIS: No pneumatosis or pneumoperitoneum. The study is degraded by respiratory motion artifact and limited without the use of contrast. The unenhanced spleen, visualized pancreas and adrenal glands are unrema rkable. Cholelithiasis without CT evidence of acute cholecystitis or biliary ductal dilation. Unremar kable liver. Exophytic 1.4 cm cyst of the superior pole right kidney. Mild left-sided hydronephrosis. Mild pelvic caliectasis of the right kidney. Distended urinary bladder. Prostamegaly. Extensive atherosclerosis o f the abdominal aorta with suggestion of high-grade stenosis at the origin of the right common iliac artery. No lymphadenopathy identified. No bowel obstruction or bowel wall thickening. Small left inguinal hernia contains a nonobstructed lo op of sigmoid colon lung with mesenteric fat. Diastases of the hernia sac measures up to 2.3 cm. The visualized appendix appears noninflamed. Unremarkable soft tissues. Degenerative changes of the spine , pelvis and hips. No acute fracture or destructive bone lesion identified. Chronic appearing L3 supe rior endplate compression deformity/Schmorl's node. IMPRESSION: 1. Mild emphysema. 2. Left mainstem bronchial and left lower lobe mucous plugging is noted in addition to mild to modera te pneumomediastinum , likely secondary to an occult bronchial alveolar injury. 3. No bowel obstruction or bowel wall thickening. 4. Small left inguinal hernia contains mesenteric fat and nonobstructed sigmoid colon. 5. Cholelithiasis. 6. Mild left-sided hydroureteronephrosis is likely secondary to the distended urinary bladder. 7. No suspicious pulmonary nodules identified. ACT 112: Negative or not required by law. Electronically signed by: Bhavik Salgado M.D. 04/15/2022 7:43 PM
[2022-04-15] MEDS ORDERED: ACETAMINOPHEN 325 MG TAB PO PRN (20:43)
[2022-04-15] MEDS ORDERED: ONDANSETRON INJ 2 MG/ML 2 ML VIAL IV PRN (20:43)
[2022-04-15] MEDS ORDERED: POLYETHYLENE (MIRALAX) 17 GM PACK PO PRN (20:43)
[2022-04-15] MEDS: PANTOprazole 40 MG in DEXTROSE 5% 100 ML IV SCH (22:28)
[2022-04-15] MEDS ORDERED: POTASSIUM CHLORIDE CRTAB 20 MEQ TABCR PO ONE (23:00)
[2022-04-15] MEDS: LACTATED RINGER'S 1,000 ML IV SCH (23:39)
[2022-04-15 23:56] LABS: BUN Creatinine Ratio 12.7 (10-20); Calcium 7.9 mg/dl (8.5-10.1); Est GFR (African American) 104.7 ml/min; Est GFR (Non-African American) 90.3 ml/min; Potassium 2.9 mmol/L (3.5-5.1); Troponin I High Sensitivity 780.3 pg/ml (0-20)
[2022-04-16] MEDS: NYSTATIN SUSP 500,000 U/5 ML UDC PO SCH ×5 (00:12→20:30)
[2022-04-16] MEDS: MAGNESIUM SULFATE / D5W 1 GM/100 ML BAG IV SCH ×2 (02:00→03:37)
[2022-04-16] MEDS ORDERED: MAGNESIUM SULFATE 1GM / D5W BAG IV ONE (03:33)
[2022-04-16] MEDS ORDERED: CEFEPIME 2,000 MG in SYRINGE 0 ML IV SCH (04:00)
[2022-04-16 04:31] LABS: Hemoglobin 9.7 g/dl (14.0-18.0); Mean Corpuscular Hemoglobin 32.6 pg (25.0-34.0); Mean Corpuscular Hgb Conc 34.6 g/dL (32.0-36.0); Mean Platelet Volume 11.1 fL (9.4-12.4); Platelet Count 251 K/uL (130-400); RDW Coefficient of Variation 13.5 % (11.5-14.5); RDW Standard Deviation 46.2 fL (36.4-46.3); Red Blood Count 2.98 M/uL (4.63-6.08); White Blood Count 11.48 K/ul (4.8-10.8)
[2022-04-16 04:59] LABS: BUN Creatinine Ratio 10.7 (10-20); Calcium 7.9 mg/dl (8.5-10.1); Creatinine Clr Calc Pharmacy 81.1 ml/min; Est GFR (Non-African American) 92.3 ml/min; Magnesium 1.9 mg/dl (1.7-2.4); Phosphorus 2.2 mg/dl (2.5-4.9); Potassium 3.3 mmol/L (3.5-5.1)
[2022-04-16] MEDS: PANTOprazole 40 MG in DEXTROSE 5% 100 ML IV SCH ×5 (05:58→21:18)
[2022-04-16 06:48] LABS: Estimated Average Glucose 105 mg/dl; Hemoglobin A1C 5.3 % (4.5-5.6)
[2022-04-16] MEDS: LACTATED RINGER'S 1,000 ML IV SCH (07:45)
[2022-04-16] MEDS ORDERED: POTASSIUM CHLORIDE CRTAB 20 MEQ TABCR PO STA ×2 (08:04→17:49)
[2022-04-16] MEDS: SODIUM CHLORIDE 0.9% 1000ML 1,000 ML IV SCH ×2 (08:27→17:19)
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
--- NOTE | 2022-04-16 10:05 | Gastrointestinal Consultation ---
Date of Consultation April 16, 2022 Assessment & Plan (1) Anemia: (2) Melena: (3) Weight loss, abnormal: Plan 1. EGD tomorrow by Dr. Gutierrez 2. PPI 40 mg BID 3. Eventual OP Colonoscopy. Our office will contact to arrange. 4. Further recommendations to follow EGD. Supervising Physician Co-Signing Physician Notes Mr. Farias is a 72 y/o M with PMH of HTN who was admitted with weakness and syncope found to have anemia with hgb of 10 (last 10-11 in 2019). He reports intermittent melena over the last 1-2 weeks at home but denies any hematochezia, hematemesis, or coffee ground emesis. Denies NSAID use or hx of GI bleeding. He has never had an EGD or colonoscopy before. Worrisome is that he has lost 30 lbs over the past 3-4 months unintentionally. He has not had any dysphagia or odynophagia but feels that he fills up quickly. He is a long time tobacco user and reports he was drinking 6-8 drinks/daily for many years up until 1 month ago when he began feeling unwell. On admission he was found to have elevated troponins for which cardiology was consulted and felt that he had no symptoms to suggest acute ACS without any EKG changes and echo was unremarkable. He denies any chest pain or dyspnea. He also had a CT chest which showed concerns for mucous plugging and pneumomediastinum. Pulmonary was consulted and feels that this is likely because of coughing fit. He also underwent CT abd/pelvis and liver was noted as unremarkable. Other notable labs on admission with Na of 130, K 3.3, phos 2.2, calcium 7.9. troponin 1083. magnesium 1.6. AST 23, ALT 18. total bili 1.3, ALP 84. Ferritin 992. albumin 3.2. Physical exam: General: no acute distress, laying in bed, appears older than stated age, chronically ill appearing, frail, sarcopenic with temporal muscle wasting Eyes: sclera anicteric Lungs: RRR, CTA bilaterally Heart: RRR, no murmurs Abdomen: soft, non-tender, non-distended, no hepatosplenomegaly, notable muscle wasting Extremities: cachetic, no edema I am concerned about a potential malignancy with anemia and 30-40 lb weight loss. Given reports of melena he will certainly need an EGD with differentials including malignancy vs. PUD vs. AVM vs. severe esophagitis/gastritis. Plan: -will plan for EGD tomorrow for further evaluation of anemia, melena, and weight loss. Patient was very hesitant to proceed with EGD and initially refused but is agreeing at this time. He reports that even if EGD is negative he will absolutely not undergo a colonoscopy for evaluation of weight loss. He states that he will be leaving the hospital tomorrow no matter what. -cardiology/pulmonary on board. Cardiology has given cardiac clearance for EGD. -NPO at midnight -PPI 40 mg BID -correction of electrolyte abnormalities -recommend nutrition consult as well with boost/ensure TID given sarcopenia and severe protein-calorie malnutrition Amy Gutierrez, DO Gastroenterology and Hepatology I personally saw and evaluated the patient with TOMASA Gutierrez on 04/16 and I agree with the above plan and recommendations. History of Present Illness Reason for Consultation: possible upper GI bleeding, diarrhea, wt loss Requesting Physician: Dr. Vera Attending Physician: Guzman Menchaca MD History of Present Illness Mr. Denzel Farias is a 72-year-old male patient of Dr. Castillo with a history of smoking, septic joint, Pseudomonas infection of the left lower extremity, who presents to the ER status post fall/syncope this morning. He presented to the emergency department yesterday on the advice of his PCP. He had been having lightheadedness weakness, he believes he fell though there was no trauma. He also reports a 30 to 40 pound weight loss in the last 3 to 4 months. When asked about other symptoms he reports passing a black loose bowel movement about every other day for about 2 weeks, most recently 2 days ago. He also has poor appetite and when he tries to eat sometimes gags and quickly regurgitates the food. He is also having some dry heaves if he tries to eat. He recalls having a poor appetite and dry heaves a few years ago but symptoms resolved and he did not seek medical care for this. When asked about abdominal pain he reports that a few weeks ago he had some mild to moderate left mid abdomen pain but none recently. No blood in his emesis. No bright red blood in his bowel movements. On arrival, hemoglobin was slightly decreased at 10.7 and further decreased to 9.7 this morning after receiving IV fluids. He also had significant leukocytosis at 19 which decreased to 11 this morning after receiving IV fluids and Vanco/cefepime. He is a frail male who appears older than his age. He is a vague historian but is awake alert and oriented. He is pleasant and conversational, comfortable, afebrile, no tachycardia, he was mildly hypotensive at 91/58 and is currently normotensive at 109/63. He has been at [facility] since yesterday afternoon and has not had any emesis or bowel movements. Though he is a smoker and there is new most mediastinum on his chest CT, he is saturating at 97% on room air does not have any respiratory symptoms currently. He has never previously undergone EGD or colonoscopy. Allergies Allergy/AdvReac Type Severity Reaction Status Date / Time No Known Allergies Allergy Verified 09/27/17 13:03 Home Medications Medication Instructions Recorded Confirmed Type lisinopril 10 mg tablet 10 mg PO DAILY 07/18/18 04/15/22 History Lactobacillus acidoph-L.bulgaricus 2 tab PO BID #60 tabs 07/20/18 04/15/22 Rx 1 million cell chewable tablet (Lactinex) Patient History Medical History HTN (hypertension) Smoker Surgical History H/O left knee surgery History of surgery on lower extremity Family History Father Alzheimer disease Mother Hypertension Social History (Updated 04/15/22 @ 18:34 by Sunita Vera DO) Smoking Status: Current every day smoker Tobacco Type: Cigarettes Cigarettes Per Day: 5-10 cigarettes daily; Hx Alcohol Use: No Hx Substance Use: Yes Preferred Language: Syriac Communication Ability: Effective Beliefs That Will Affect Care: None marital status: Single Current Living Situation: Spouse Feels Safe at Home: Yes Assistive Devices: None Review of Systems Review of Systems: ROS: Gen: + weakness +weight loss; Denies fevers Eyes: No eye redness, or pain, no recent vision changes Resp: + reports SOB a few days ago, not recently and denies cough/chest congestion Cardio: + lightheadedness; dizziness; No palpitations/irregular beats, no chest pain GI: As per HPI, otherwise negative : Denies pain on urination, no blood in his urine Skin: + Chronic left lower leg dark discoloration and dry skin. No jaundice, itching or new rashes A total of 12 systems reviewed, all others negative Physical Exam Constitutional: + ill appearing (chronically), + thin, + frail appearing, cooperative and comfortable Eyes: PERRL, conjunctivae normal, anicteric sclerae ENMT: external ear and nose normal, oropharynx normal Neck: trachea midline, no thyromegaly Respiratory: normal respiratory effort; no respiratory distress and no cough Diminished breath sounds and few crackles at each base. Cardiovascular: RRR, no murmur, no edema Gastrointestinal (Abdomen): Inspection/Auscultation: abdomen normal to inspection and normal bowel sounds Percussion/Palpation: abdomen soft; abdomen nontender and no ascites Musculoskeletal: Rt shoulder, mildly enlarged/promient/more anterior compared to the left; Right shoulder tender on palpation; no red or swollen joints. Skin: Skin is very dark/nearly black thin, dry large over a large area of the L ant Lower leg Neurologic: PERRL, EOMI, accommodation nl, no face palsy, no dysarthria Psychiatric: A+Ox3, euthymic affect Lymphatic: no cervical or axillary lymphadenopathy Results & Data ([facility]) Vital Signs (Past 12 Hours) Vital Signs Pulse Pulse Resp BP BP Pulse Ox Pulse Ox 04/16/22 07:20 85 18 109/63 97 04/16/22 05:50 92 H 04/16/22 04:00 88 16 04/16/22 04:00 108/61 04/16/22 03:30 114/63 04/16/22 03:30 92 H 12 04/16/22 03:00 106/57 L 04/16/22 03:00 86 16 04/16/22 02:30 93 H 13 92 04/16/22 02:00 100 04/16/22 01:30 94 H 14 99 04/16/22 01:00 96 H 97 04/16/22 00:30 94 H 14 90 04/16/22 00:00 99 H 14 100 04/15/22 23:30 102 H 99 04/15/22 23:00 100 H 16 100 04/15/22 22:32 114 H 15 100 04/15/22 22:31 18 95 04/15/22 22:30 100 H 12 04/15/22 22:00 100 H 14 04/16/22 04:28 92 04/16/22 02:49 93 H 13 102/60 100 04/16/22 00:01 100 H 14 106/59 L 98 04/15/22 23:50 98 H 17 91/58 L 100 O2 Del Method 04/16/22 07:20 Room Air 04/16/22 05:50 04/16/22 04:00 04/16/22 04:00 04/16/22 03:30 04/16/22 03:30 04/16/22 03:00 04/16/22 03:00 04/16/22 02:30 04/16/22 02:00 04/16/22 01:30 04/16/22 01:00 04/16/22 00:30 04/16/22 00:00 04/15/22 23:30 04/15/22 23:00 04/15/22 22:32 04/15/22 22:31 04/15/22 22:30 04/15/22 22:00 04/16/22 04:28 04/16/22 02:49 Room Air 04/16/22 00:01 Room Air 04/15/22 23:50 Room Air Laboratory Results WBC 11.4, Hb 9.7, HCT 28, PLT S251, PT 11.5, INR 1.1, NA 130, K3.3, CL 94, CO2 29, BUN 8, CR 0.75, glucose 97 Diagnostic Findings Non con CTAP 04/15/22: 1. Mild emphysema. 2. Left mainstem bronchial and left lower lobe mucous plugging is noted in addition to mild to moderate pneumomediastinum , likely secondary to an occult bronchial alveolar injury. 3. No bowel obstruction or bowel wall thickening. 4. Small left inguinal hernia contains mesenteric fat and nonobstructed sigmoid colon. 5. Cholelithiasis. 6. Mild left-sided hydroureteronephrosis is likely secondary to the distended urinary bladder. 7. No suspicious pulmonary nodules identified.
[2022-04-16] MEDS: POT PHOSPHATE MONOBASIC W/ SOD TAB PO SCH ×4 (10:34→20:30)
[2022-04-16 11:06] LABS: Hematocrit (blood only) 28.7 % (40.1-51.0)
--- NOTE | 2022-04-16 11:36 | Pulmonary Consultation ---
Date of Consultation April 16, 2022 Assessment & Plan (1) Pneumomediastinum: (2) Dyspnea on exertion: (3) COPD with emphysema: (4) Current smoker: Plan CT chest 04/15/2022 personally reviewed: Minimal pneumomediastinum appreciated especially in the upper anterior Mucus appreciated in the left main bronchus, minimal centrilobular and paraseptal emphysema appreciated bilaterally Minimal bilateral apical pleural scarring No mediastinal lymphadenopathy -- Pneumomediastinum Likely because of coughing fit Avoid positive pressure ventilation, no high flow, no CPAP/BiPAP No flutter valve. Put the patient on nonrebreather -- Mucous plugging left main bronchus Would give guaifenesin Procalcitonin negative -- COPD with emphysema Not on any inhalers at home Plan: No signs of pneumonia on the CAT scan of the chest. Procalcitonin negative. Can discontinue antibiotics if it is for pulmonary perspective Start the patient on Incruse to be used on a daily basis Nonrebreather which will help resolve pneumomediastinum Please note the above document was generated using voice recognition software. It may contain grammatical, syntax or spelling errors.Any formal questions or concerns about the content, text or information contained within the body of this dictation should be directly addressed to the provider for clarification. History of Present Illness Attending Physician: Guzman Menchaca MD History of Present Illness 72-year-old male admitted to the hospital because of lower GI bleed Past medical history: Hypertension Pulmonary consulted as the patient is CT chest done which showed pneumomediastinum At the time of examination patient was saturating 96% on room air Not in any acute distress Denied any chest pain, no shortness of breath. States he has cough and is bringing up the phlegm without any issues No hemoptysis. He has lost 30 pounds in the last 2 months with decrease in appetite. No dysuria, no diarrhea No headache, no blurry vision Social history: Greater than [id number] smoking history, active smoker Allergies Allergy/AdvReac Type Severity Reaction Status Date / Time No Known Allergies Allergy Verified 09/27/17 13:03 Home Medications Medication Instructions Recorded Confirmed Type lisinopril 10 mg tablet 10 mg PO DAILY 07/18/18 04/15/22 History Lactobacillus acidoph-L.bulgaricus 2 tab PO BID #60 tabs 07/20/18 04/15/22 Rx 1 million cell chewable tablet (Lactinex) Patient History Medical History HTN (hypertension) Smoker Surgical History H/O left knee surgery History of surgery on lower extremity Family History Father Alzheimer disease Mother Hypertension Social History (Updated 04/15/22 @ 18:34 by Sunita Vera DO) Smoking Status: Current every day smoker Tobacco Type: Cigarettes Cigarettes Per Day: 5-10 cigarettes daily; Hx Alcohol Use: No Hx Substance Use: Yes Preferred Language: Bermudian Communication Ability: Effective Beliefs That Will Affect Care: None marital status: Single Current Living Situation: Spouse Feels Safe at Home: Yes Assistive Devices: None Review of Systems Review of Systems: All systems reviewed & are unremarkable except as noted in HPI & below Physical Exam Physical Exam: Constitutional: No acute distress, frail-appearing HEENT: EOMI, PERRLA Respiratory system: Air entry bilaterally, no wheeze, no rhonchi, mild crackles bilateral lower lobes CVS: S1-S2 positive, no murmurs or gallops, distant heart sounds Abdomen: Soft, nontender, nondistended, positive bowel sounds x4 Extremities: +2 pulses bilaterally radialis/ dorsalis pedis, no cyanosis, no edema Neuro: Awake alert oriented x3 Psych: Normal mood and affect G/U: No Heller Skin: no rashes, warm and dry Lymphatic: no cervical or axillary lymphadenopathy Results & Data Results & Data ([facility]) Vital Signs (Past 12 Hours) Vital Signs Pulse Pulse Resp BP BP Pulse Ox Pulse Ox 04/16/22 07:20 85 18 109/63 97 04/16/22 05:50 92 H 04/16/22 04:00 88 16 04/16/22 04:00 108/61 04/16/22 03:30 114/63 04/16/22 03:30 92 H 12 04/16/22 03:00 106/57 L 04/16/22 03:00 86 16 04/16/22 02:30 93 H 13 92 04/16/22 02:00 100 04/16/22 01:30 94 H 14 99 04/16/22 01:00 96 H 97 04/16/22 00:30 94 H 14 90 04/16/22 00:00 99 H 14 100 04/16/22 04:28 92 04/16/22 02:49 93 H 13 102/60 100 04/16/22 00:01 100 H 14 106/59 L 98 04/15/22 23:50 98 H 17 91/58 L 100 O2 Del Method 04/16/22 07:20 Room Air 04/16/22 05:50 04/16/22 04:00 04/16/22 04:00 04/16/22 03:30 04/16/22 03:30 04/16/22 03:00 04/16/22 03:00 04/16/22 02:30 04/16/22 02:00 04/16/22 01:30 04/16/22 01:00 04/16/22 00:30 04/16/22 00:00 04/16/22 04:28 04/16/22 02:49 Room Air 04/16/22 00:01 Room Air 04/15/22 23:50 Room Air Laboratory Results 04/16/22 10:43 04/16/22 04:01 PG Care Time/CCT Total # of Minutes Spent Total Time Spent with Patient: Total time spent is greater than 50% in coordination of care (as documented) at patient's floor/unit and/or counseling patient: Coding Level of Care Code 47674 Initial Inpt Care Lvl 3 Diagnoses Pneumomediastinum J98.2 Dyspnea on exertion R06.09 COPD with emphysema J43.9 Current smoker F17.200
--- NOTE | 2022-04-16 12:17 | Pharmacy Report ---
Pharmacy PK ABX Note - Date of Service April 16, 2022 - Assessment and Plan Assessment 72 year old M receiving vancomycin and cefepime empirically in the setting of sepsis. Blood cultures pending, SCr slightly elevated on admission, however back to baseline today. Day #2 of antimicrobial therapy. Plan Vancomycin * Loading dose: 1250 mg IV x 1 * Maintenance dose: 1500 mg IV every 24 hours * Regimen is predicted to achieve target AUC/CINTIA of 400-600 mg/L.hr * Will obtain a level around steady state or sooner if clinically indicated Pharmacy will continue to follow and will adjust dose/frequency as necessary. Thank you. Pharmacy has transitioned to AUC monitoring for vancomycin. AUC/CINTIA is the preferred PK/PD target and is associated with decreased risk of nephrotoxicity compared to traditional trough targets.
[2022-04-16] MEDS: CEFEPIME 2,000 MG in SYRINGE 0 ML IV SCH ×2 (13:45→20:30)
[2022-04-16] MEDS: VANCOMYCIN HCL 1,500 MG in SODIUM CHLORIDE 0.9% 500 ML IV SCH (14:19)
[2022-04-16] MEDS ORDERED: VANCOMYCIN HCL 1,250 MG in SODIUM CHLORIDE 0.9% 250 ML IV SCH (16:00)
[2022-04-16 16:16] LABS: BUN Creatinine Ratio 11.6 (10-20); Calcium 7.9 mg/dl (8.5-10.1); Creatinine Clr Calc Pharmacy 88.2 ml/min; Est GFR (African American) 110.7 ml/min; Est GFR (Non-African American) 95.5 ml/min; Potassium 3.3 mmol/L (3.5-5.1)
[2022-04-16] MEDS: UMECLIDINIUM BROMIDE 62.5MCG/BLISTER 7 PUFFS/INHALER INH SCH (16:19)
--- NOTE | 2022-04-16 17:31 | Hospitalist Progress Note ---
Date of Service April 16, 2022 Assessment & Plan (1) GIB (gastrointestinal bleeding): Plan: Acute blood loss anemia Dr. Vera's notes with addendum Patient presents with syncopal collapse after described episode of postural orthostasis and at least one month of dark tarry stools and inability to eat. He is more anemic now (10.7/39) than in 2019 which was normal. There is a possibility of an acute upper GI bleed at this point. There is a heavy drinking history of 6 beers nightly up until one month ago when he couldn't tolerate alcohol any longer. He is also a smoker. PPI drip now, FOBT, strict I/Os, ensure adequate volume resuscitation while also monitoring his sodium. Na cannot rise past 135 by tomorrow afternoon. GI consult. If there is any brisk bleeding overnight or CT scans reveal any evidence of liver disease, consider the addition of octreotide. Stool culture including rule out cdiff for ongoing loose stools reported 04/16 Hemoglobin from 10.7, now 10.0 No recurrence of melena while admitted GI consulted, plan for EGD tomorrow Continue Protonix drip Check anemia panel (2) Sepsis: Plan: Patient denies fevers or chills but is hemodynamically unstable and has an elevated WBC count. Will continue broad spectrum antibiotics empirically, however, there is no clear source of infection at this time. Procalcitonin and lactate are pending. 04/16 Remains afebrile Leukocytosis improved from 19, to 11,000 Blood cultures: Pending Chest x-ray: No signs of pneumonia Urinalysis: No signs of UTI Continue empiric vancomycin plus cefepime for now Monitor closely Elevated troponin Peaked to 1000, trending down to 600 EKG no signs of acute ischemia or infarct Echocardiogram no wall motion abnormality [employer] consulted Okay to proceed with EGD (3) Dyspnea on exertion: Plan: Pneumomediastinum Likely multifactorial given malnourished state, possible GI bleeding, electrolyte disorders, etc. Echo in am. CT chest this evening. 04/16 On room air Not in distress Pulmonary service consulted, likely secondary to coughing Continue to monitor Mucinex (4) Hyponatremia: Plan: This patient is hypovolemic. Given 3L NSS in the ER. Will trend sodium this evening and ensure not rising beyond 135 by tomorrow afternoon. Will scan chest with CT to ensure no evidence of lung nodules that may be malignancy given long smoker history and weight loss. 04/16 Sodium at 3 PM still at 128 Continue NSS Repeat sodium at 9 PM (5) Hypokalemia: Plan: 2/2 poor PO intake. Replace potassium and magnesium now. Repeat in am. 04/16 Potassium stable at 3.3, continue p.o. repletion Museum level normal (6) Anemia: Plan: Possible acute blood loss anemia. Iron studies pending. Trend CBC. FOBT. GI consult. Hemoglobin remaining the same, around 10 Iron level 57 For EGD tomorrow (7) Severe protein-calorie malnutrition: Plan: nutrition consult. CT chest/abd/pel to screen for contributing factors. CT scans negative for suspicious mass at this point (8) Weight loss, abnormal: Plan: 30 lb weight loss in the past 2 months. EGD tomorrow Patient declining colonoscopy CAT scans not showing any significant/suspicious mass Will need further work-up and management as an outpatient (9) Orthostasis: Plan: likely related to hypovolemia possible from GI bleeding as above. (10) Smoker: Plan: Smoking cessation advised. Eulalio WHITE (11) Thrush, oral: Plan: Poor dentition and overall hygiene. Thrush on both sides of his tongue, which may be contributing to eating issues and weight loss, especially if it extends into the esophagus. GI consult to consider EGD. (12) Weakness: Plan: a result of all issues above. PT/OT consultations requested. (13) DVT prophylaxis: Plan: SCDs/ambulation as tolerated. Chemoprophylaxis contraindicated in setting of possible acute blood loss anemia. Full Code confirmed with him on admission Dispo-pending PT and OT evaluation pending plan of care discussed with patient in detail and at length all questions answered he is understanding, agreeable, comfortable with the plan of care Admission and Anticipated Discharge Date Admission Date: April 15, 2022 Subjective Follow-up for anemia, melena, possible sepsis, etc. Seen sitting up in bed, comfortable, not in distress, watching TV States he feels fine overall, improved compared to yesterday Denies recurrence of melena while admitted, no abdominal pain, nausea or vomiting Denies chest pain, shortness of breath, palpitations, dizziness Denies fevers or chills, problems with urination, headache No other symptoms Review of Systems Review of Systems: all noted and negative except for above Physical Exam Physical Exam: General- oriented x 3, not in distress, speaks in sentences with no effort or accessory muscle use Eyes- anicteric Neck- no JVD Lungs- clear breath sounds bilaterally, no crackles or wheezing Heart- normal rate, regular rhythm; no murmurs Abdomen- normal bowel sounds, nondistended, soft, nontender Extremities- no pretibial edema, no calf tenderness Neuro- alert, oriented x 3; no gross focal neurologic deficits Skin- warm & dry Results & Data Results & Data ([facility]) Vital Signs (Past 12 Hours) Vital Signs Pulse Pulse Resp BP Pulse Ox O2 Del Method 04/16/22 07:20 85 18 109/63 97 Room Air 04/16/22 05:50 92 H all noted and reviewed including below
[2022-04-16 21:31] LABS: BUN Creatinine Ratio 10.6 (10-20); Calcium 7.7 mg/dl (8.5-10.1); Creatinine Clr Calc Pharmacy 92.2 ml/min; Est GFR (African American) 112.7 ml/min; Est GFR (Non-African American) 97.3 ml/min; Potassium 3.2 mmol/L (3.5-5.1)
[2022-04-17] MEDS: PANTOprazole 40 MG in DEXTROSE 5% 100 ML IV SCH ×3 (01:42→11:32)
[2022-04-17] MEDS: SODIUM CHLORIDE 0.9% 1000ML 1,000 ML IV SCH ×3 (01:50→18:01)
[2022-04-17] MEDS ORDERED: POTASSIUM CHLORIDE CRTAB 20 MEQ TABCR PO STA (02:18)
[2022-04-17] MEDS: CEFEPIME 2,000 MG in SYRINGE 0 ML IV SCH ×3 (03:05→20:58)
[2022-04-17] MEDS: POT PHOSPHATE MONOBASIC W/ SOD TAB PO SCH ×4 (07:49→20:59)
[2022-04-17] MEDS: UMECLIDINIUM BROMIDE 62.5MCG/BLISTER 7 PUFFS/INHALER INH SCH (07:50)
[2022-04-17] MEDS: NYSTATIN SUSP 500,000 U/5 ML UDC PO SCH ×4 (07:50→20:58)
[2022-04-17 09:24] LABS: Basophils # (auto) 0.05 K/uL (0-0.2); Basophils % (auto) 0.5 %; Eosinophils # (auto) 0.07 K/uL (0-0.50); Eosinophils % (auto) 0.7 %; Hematocrit (blood only) 28.9 % (40.1-51.0); Immature Granulocytes # (auto) 0.05 K/uL (0.00-0.02); Immature Granulocytes % (auto) 0.5 %; Lymphocytes # (auto) 1.69 K/uL (1.2-3.4); Lymphocytes % (auto) 16.7 %; Mean Corpuscular Hemoglobin 32.9 pg (25.0-34.0); Mean Corpuscular Hgb Conc 34.6 g/dL (32.0-36.0); Mean Corpuscular Volume 95.1 fL (80.0-100.0); Mean Platelet Volume 11.5 fL (9.4-12.4); Monocytes # (auto) 0.85 K/uL (0.24-0.82); Monocytes % (auto) 8.4 %; Neutrophils # (auto) 7.39 K/uL (1.4-6.5); Neutrophils % (auto) 73.2 %; Platelet Count 256 K/uL (130-400); RDW Coefficient of Variation 13.4 % (11.5-14.5); RDW Standard Deviation 46.6 fL (36.4-46.3); Red Blood Count 3.04 M/uL (4.63-6.08)
--- NOTE | 2022-04-17 09:54 | Anesthesiology Consultation ---
Date of Service April 17, 2022 Assessment & Plan (1) Encounter for pre-operative examination: Chart Review Chart Review: Acceptable Risk for Surgery, Patient NOT seen in Pre Admission Testing and customs entry writer initiated Consults Requested none Proposed Anesthesia Risk / Benefits Reviewed With: PT / POA / Parent / Guardian, Accepts Plan and Informed Consent Obtained History Surgery Operation Date: 04/17/22 16:30 Proposed Procedures p Esophagogastroduodenoscopy Matt Gutierrez, Height/Weight Height: 6 ft 1 in Weight: 58.5 kg Allergies Allergy/AdvReac Type Severity Reaction Status Date / Time No Known Allergies Allergy Verified 09/27/17 13:03 Medications Home Medications Medication Instructions Recorded Confirmed Last Taken lisinopril 10 mg tablet 10 mg PO DAILY 07/18/18 04/15/22 Unknown Lactobacillus acidoph-L.bulgaricus 2 tab PO BID #60 tabs 07/20/18 04/15/22 Unknown 1 million cell chewable tablet (Lactinex) Active Medications Generic Name Dose Route Start Last Admin Trade Name Freq PRN Reason Stop Dose Admin Pantoprazole Sodium 40 mg/ 100 mls @ 20 mls/hr 04/15/22 19:30 04/17/22 06:25 Dextrose IV 05/15/22 19:29 8 mg/hr Q5H NURIA 20 mls/hr Administration 8 MG/HR Sodium Chloride 1,000 mls @ 125 mls/hr 04/16/22 08:15 04/17/22 01:50 Nss 1000ml IV 05/16/22 08:14 125 mls/hr .Q8H NURIA Administration Cefepime HCl 2,000 mg/ Syringe 20 mls @ 5 mls/min 04/16/22 12:00 04/17/22 03:05 IV 04/18/22 03:59 5 mls/min Q8H NURIA Administration Protocol Vancomycin HCl 1,500 mg/ 530 mls @ 200 mls/hr 04/16/22 13:00 04/16/22 17:14 Sodium Chloride IV 04/18/22 12:59 Infused Q24H NURIA Infusion Protocol Nystatin 5 ml 04/15/22 21:00 04/17/22 07:50 Nystatin Susp 500,000 U/5 Ml Udc PO 04/25/22 20:59 5 ml QID NURIA Administration Potassium Phosphate 1 tab 04/16/22 09:00 04/17/22 07:49 Pot Phosphate Monobasic W/ Sod Tab PO 05/16/22 08:59 1 tab QID NURIA Administration Umeclidinium [place] 1 puffs 04/16/22 14:00 04/17/22 07:50 Umeclidinium [place] 62.5mcg/Blister 7 Puffs/Inhaler INH 05/16/22 13:59 1 puffs DAILY NURIA Administration Past Medical History Medical History Encounter for pre-operative examination HTN (hypertension) Smoker Past Family History Family History Father Alzheimer disease Mother Hypertension Past Surgical History Surgical History H/O left knee surgery History of surgery on lower extremity Social History Smoking Status: Current every day smoker tobacco type: cigarettes Smoking cigarettes per day: 5-10 cigarettes daily Hx Alcohol Use: No Alcohol type: beer Hx Substance Use: Yes substance use type: marijuana Physical Exam Vital Signs Last Vital Signs Temp 36.4 C L 04/17/22 07:00 Pulse 80 04/17/22 07:38 Resp 16 04/17/22 07:00 BP 115/65 04/17/22 07:00 Pulse Ox 100 04/17/22 07:00 O2 Del Method 04/17/22 07:00 O2 Flow Rate 15 04/16/22 20:34 Testing Laboratory Results 04/17/22 08:13 PT 11.5 Seconds (9.0-12.0) 04/15/22 15:51 INR 1.1 (0.9-1.1) 04/15/22 15:51 APTT 35.7 Seconds (21.0-31.0) H 04/15/22 15:51 Hemoglobin A1c 5.3 % (4.5-5.6) 04/15/22 15:51 Urine Color Yellow 04/15/22 17:40 Urine Appearance Clear (Clear) 04/15/22 17:40 Urine pH 7.0 (4.5-7.5) 04/15/22 17:40 Ur Specific [place] 1.005 (1.000-1.030) 04/15/22 17:40 Urine Protein Negative (Negative) 04/15/22 17:40 Urine Glucose (UA) Negative (Negative) 04/15/22 17:40 Urine Ketones Negative (Negative) 04/15/22 17:40 Urine Nitrite Negative (Negative) 04/15/22 17:40 Ur Leukocyte Esterase Negative (Negative) 04/15/22 17:40 Blood Type O Positive 04/15/22 15:51 Antibody Screen NEGATIVE 04/15/22 15:51 04/15/22 16:28 Aerobic Blood Culture - Preliminary Blood No growth in Aerobic bottle after 24 hours. Anaerobic Blood Culture - Preliminary No growth in Anaerobic bottle after 24 hours. 04/15/22 16:36 Aerobic Blood Culture - Preliminary Blood No growth in Aerobic bottle after 24 hours. Anaerobic Blood Culture - Preliminary No growth in Anaerobic bottle after 24 hours. 04/15/22 19:41 Fungal Smear - Final Blood Electrocardiogram Date: 04/17/2217-Apr-2022 06:15:59 [facility] ROUTINE RETRIEVAL Normal sinus rhythm Right atrial enlargement Septal infarct (cited on or before 17-APR-2022) Abnormal ECG When compared with ECG of 16-APR-2022 07:34, No significant change was found Chest X-Ray Date: 04/15/22 XR chest 1V portable HISTORY: 72 years-old Male weakness acute weakness COMPARISON: None TECHNIQUE: AP view of the chest FINDINGS: Cardiac mediastinal and hilar silhouettes are within normal limits. Lungs are mildly hyperinflated. No pneumothorax, pleural effusion, airspace consolidation or overt pulmonary edema. There is a questioned nodular focus overlying the right lateral upper chest at the level of the inferior scapula. Degenerative changes of the shoulders and spine. Mild lumbar levoscoliosis. IMPRESSION: 1. Hyperinflation without acute process of the chest. 2. Questioned ill-defined nodular density of the right lateral upper lung is favored to represent summation density. Attention at follow-up recommended. Echocardiogram Date: 04/16/22 EF: >70% LV Function: normal RWMA: + none Other Findings: + LVH (mild) Other Testing 04/15/22 CT chest and abdomen IMPRESSION: 1. Mild emphysema. 2. Left mainstem bronchial and left lower lobe mucous plugging is noted in addition to mild to moderate pneumomediastinum , likely secondary to an occult bronchial alveolar injury. 3. No bowel obstruction or bowel wall thickening. 4. Small left inguinal hernia contains mesenteric fat and nonobstructed sigmoid colon. 5. Cholelithiasis. 6. Mild left-sided hydroureteronephrosis is likely secondary to the distended urinary bladder. 7. No suspicious pulmonary nodules identified.
[2022-04-17 10:23] LABS: BUN Creatinine Ratio 9.5 (10-20); Calcium 8.2 mg/dl (8.5-10.1); Est GFR (African American) 114.9 ml/min; Est GFR (Non-African American) 99.1 ml/min; Potassium 3.7 mmol/L (3.5-5.1)
--- NOTE | 2022-04-17 10:28 | Gastroenterology Progress Note ---
Date of Service April 17, 2022 Assessment & Plan (1) Anemia: (2) Melena: (3) Weight loss, abnormal: Plan 1. EGD today by Dr. Gutierrez. Please keep NPO. 2. PPI 40 mg BID 3. Pt refusing Colonoscopy. 4. Further recommendations to follow EGD. Admission and Anticipated Discharge Date Admission Date: April 15, 2022 Supervising Physician Co-Signing Physician Notes Mr. Farias is a 72 y/o M with PMH of HTN who was admitted with weakness and syncope found to have anemia with hgb of 10 (last 10-11 in 2019). He reports intermittent melena over the last 1-2 weeks at home but denies any hematochezia, hematemesis, or coffee ground emesis. Denies NSAID use or hx of GI bleeding. He has never had an EGD or colonoscopy before. Worrisome is that he has lost 30 lbs over the past 3-4 months unintentionally. He has not had any dysphagia or odynophagia but feels that he fills up quickly. He is a long time tobacco user and reports he was drinking 6-8 drinks/daily for many years up until 1 month ago when he began feeling unwell. On admission he was found to have elevated troponins for which cardiology was consulted and felt that he had no symptoms to suggest acute ACS without any EKG changes and echo was unremarkable. He denies any chest pain or dyspnea. He also had a CT chest which showed concerns for mucous plugging and pneumomediastinum. Pulmonary was consulted and feels that this is likely because of coughing fit. He also underwent CT abd/pelvis and liver was noted as unremarkable. Other notable labs on admission with Na of 130, K 3.3, phos 2.2, calcium 7.9. troponin 1083. magnesium 1.6. AST 23, ALT 18. total bili 1.3, ALP 84. Ferritin 992. albumin 3.2. Physical exam: General: no acute distress, laying in bed, appears older than stated age, chronically ill appearing, frail, sarcopenic with temporal muscle wasting Eyes: sclera anicteric Lungs: RRR, CTA bilaterally Heart: RRR, no murmurs Abdomen: soft, non-tender, non-distended, no hepatosplenomegaly, notable muscle wasting Extremities: cachetic, no edema I am concerned about a potential malignancy with anemia and 30-40 lb weight loss. Given reports of melena he will certainly need an EGD with differentials including malignancy vs. PUD vs. AVM vs. severe esophagitis/gastritis. Plan: -will plan for EGD today for further evaluation of anemia, melena, and weight loss. Patient was very hesitant to proceed with EGD and initially refused but is agreeing at this time. He reports that even if EGD is negative he will absolutely not undergo a colonoscopy for evaluation of weight loss. He states that he will be leaving the hospital tomorrow no matter what. -cardiology/pulmonary on board. Cardiology has given cardiac clearance for EGD. -NPO -PPI 40 mg BID -correction of electrolyte abnormalities -recommend nutrition consult as well with boost/ensure TID given sarcopenia and severe protein-calorie malnutrition Amy Gutierrez, DO Gastroenterology and Hepatology I personally saw and evaluated the patient with TOMASA Gutierrez on 04/17 and I agree with the above plan and recommendations. Subjective 72, M admitted 04/15 w dizziness/weakness, 30 lbs unexplained weight loss, early satiety, gagging/nausea, dry heaves. No hx of EGD or colonoscopy. Anemic Hb 10. Reports one loose black BM every few days for a few weeks. No hematemesis. Pneumomediastinum noted on chest CT - appreciate pulm opinion - likely from coughing and instructions to avoid positive airway pressure ventilation, no high flow, no CPAP/BiPAP.No flutter valve. Put the patient on nonrebreather Seen by cardiology yesterday elevated for elevated troponin w recommendation to go forward with GI w/u w expectation to have pt undergo EGD/Colonoscopy Pt refuses colonoscopy, is reluctantly willing to undergo EGD which is planned for today. Pt has not had gross GI since arrival, did have dry heaves last evening . Review of Systems Review of Systems: ROS: Gen: + weakness; No fevers; +weight loss Eyes: No eye redness, or pain, no recent vision changes Resp: + chronic SOB and cough; at baseline today. Cardio: No palpitations/irregular beats, no chest pain GI: As per HPI, otherwise (-) : Denies pain on urination Skin: No jaundice, itching or new rashes A total of 12 systems were reviewed, all others (-) Physical Exam Constitutional: + ill appearing (chronically), + thin, + frail appearing, cooperative and comfortable Eyes: PERRL, conjunctivae normal, anicteric sclerae ENMT: external ear and nose normal, oropharynx normal Neck: trachea midline, no thyromegaly Respiratory: normal respiratory effort; no respiratory distress and no cough Cardiovascular: RRR, no murmur, no edema Gastrointestinal (Abdomen): Inspection/Auscultation: abdomen normal to inspection and normal bowel sounds Percussion/Palpation: abdomen soft; abdomen nontender and no ascites Skin: Dry, pale Neurologic: PERRL, EOMI, accommodation nl, no face palsy, no dysarthria Psychiatric: A+Ox3, euthymic affect Lymphatic: no cervical or axillary lymphadenopathy Results & Data ([facility]) Vital Signs (Past 12 Hours) Vital Signs Temp Pulse Pulse Resp BP Pulse Ox O2 Del Method 04/17/22 07:38 80 04/17/22 07:00 36.4 C L 91 H 16 115/65 100 Room Air 04/17/22 03:05 36.4 C L 79 16 107/65 99 Room Air 04/17/22 00:01 93 H 04/16/22 23:40 36.5 C 86 16 105/64 99 Room Air Laboratory Results WBC 12, Hb 10, Hct 28.7, Plts 251, Na 128, K 3.2, Cl 93, CO2 27, BUN 7, Cr 0.6, glucose 85. Diagnostic Findings CTAP w IV of chest abd/pelvis 03/3022: 1. Mild emphysema. 2. Left mainstem bronchial and left lower lobe mucous plugging is noted in addition to mild to moderate pneumomediastinum , likely secondary to an occult bronchial alveolar injury. 3. No bowel obstruction or bowel wall thickening. 4. Small left inguinal hernia contains mesenteric fat and nonobstructed sigmoid colon. 5. Cholelithiasis. 6. Mild left-sided hydroureteronephrosis is likely secondary to the distended urinary bladder.
[2022-04-17 10:37] LABS: Ferritin 954.2 ng/ml (8-388)
[2022-04-17] MEDS ORDERED: PROPOFOL IV EMULSION 10 MG/ML 20 ML VIAL IV ONE (12:40)
[2022-04-17] MEDS ORDERED: LIDOCAINE 2% MPF LOCAL 5 ML VIAL INFIL ONE (12:40)
--- NOTE | 2022-04-17 12:41 | Pulmonology Progress Note ---
Date of Service April 17, 2022 Assessment & Plan (1) Pneumomediastinum: (2) Dyspnea on exertion: (3) COPD with emphysema: (4) Current smoker: Plan CT chest 04/15/2022 personally reviewed: Minimal pneumomediastinum appreciated especially in the upper anterior Mucus appreciated in the left main bronchus, minimal centrilobular and paraseptal emphysema appreciated bilaterally Minimal bilateral apical pleural scarring No mediastinal lymphadenopathy -- Pneumomediastinum Likely because of coughing fit Avoid positive pressure ventilation, no high flow, no CPAP/BiPAP No flutter valve. Put the patient on nonrebreather -- Mucous plugging left main bronchus Would give guaifenesin Procalcitonin negative -- COPD with emphysema Not on any inhalers at home Plan: Continue with Incruse on a daily basis even on discharge Patient saturating 99% on room air. No crepitus on physical exam Repeat CT of the chest in 4-6 weeks No further recommendation from pulm perspective. We will sign off Please call directly with any questions Please note the above document was generated using voice recognition software. It may contain grammatical, syntax or spelling errors.Any formal questions or concerns about the content, text or information contained within the body of this dictation should be directly addressed to the provider for clarification. Admission and Anticipated Discharge Date Admission Date: April 15, 2022 Subjective Patient seen and examined at bedside. No acute distress, no adverse events overnight. Patient was saturating 99% on room air at time of examination He denies any chest pain No shortness of breath Is bringing up phlegm without any issues Denies any headache, no blurry vision Review of Systems Review of Systems: All systems reviewed & are unremarkable except as noted in Subjective Physical Exam Physical Exam: Constitutional: No acute distress, frail-appearing HEENT: EOMI, PERRLA Respiratory system: Decreased air entry bilaterally, no wheeze, no rhonchi, mild crackles bilateral lower lobes CVS: S1-S2 positive, no murmurs or gallops, distant heart sounds Abdomen: Soft, nontender, nondistended, positive bowel sounds x4 Extremities: +2 pulses bilaterally radialis/ dorsalis pedis, no cyanosis, no edema Neuro: Awake alert oriented x3 Psych: Normal mood and affect G/U: No Heller Skin: no rashes, warm and dry Lymphatic: no cervical or axillary lymphadenopathy Results & Data Results & Data ([facility]) Vital Signs (Past 12 Hours) Vital Signs Temp Pulse Pulse Resp BP Pulse Ox O2 Del Method 04/17/22 12:32 36.6 C 102 H 20 151/83 H 100 Room Air 04/17/22 12:20 36.4 C L 90 18 135/73 99 Room Air 04/17/22 07:38 80 04/17/22 07:00 36.4 C L 91 H 16 115/65 100 Room Air 04/17/22 03:05 36.4 C L 79 16 107/65 99 Room Air Laboratory Results 04/17/22 08:13 04/17/22 08:13 PG Care Time/CCT Total # of Minutes Spent Total Time Spent with Patient: Total time spent is greater than 50% in coordination of care (as documented) at patient's floor/unit and/or counseling patient: Coding Level of Care Code 50819 Subseq Hosp Care Lvl 2 Diagnoses Pneumomediastinum J98.2 Dyspnea on exertion R06.09 COPD with emphysema J43.9 Current smoker F17.200
--- NOTE | 2022-04-17 13:54 | GI REPORT ---
Patient Name: Denzel Farias Procedure Date: 04/17/2022 12:55 PM Date of : 1950 Admit Type: Inpatient Age: 72 Gender: Male Attending MD: Amy Gutierrez DO, Procedure: Upper GI endoscopy Providers: Amy Gutierrez DO Referring MD: Guzman Menchaca Indications: Melena, Weight loss Patient Profile: This is a 72 year old male. Refer to note in patient chart for documentation of history and physical. Medicines: Monitored Anesthesia Care Complications: No immediate complications. Estimated Blood Loss: Estimated blood loss was minimal. Procedure: Pre-Anesthesia Assessment: - Prior to the procedure, a History and Physical was performed, and patient medications and allergies were reviewed. The risks and benefits of the procedure and the sedation options and risks were discussed with the patient. All questions were answered and informed consent was obtained. Patient identification and proposed procedure were verified by the physician, the nurse and the java software engineer in the procedure room. Mental Status Examination: alert and oriented. Airway Examination: Mallampati Class II (the uvula but not tonsillar pillars visualized). Respiratory Examination: clear to auscultation. CV Examination: RRR, no murmurs, no S3 or S4. Prophylactic Antibiotics: The patient does not require prophylactic antibiotics. Prior Anticoagulants: The patient has taken no anticoagulant or antiplatelet agents. ASA Grade Assessment: III - A patient with severe systemic disease. After reviewing the risks and benefits, the patient was deemed in satisfactory condition to undergo the procedure. The anesthesia plan was to use monitored anesthesia care (MAC). Immediately prior to administration of medications, the patient was re-assessed for adequacy to receive sedatives. The physical status of the patient was re-assessed after the procedure. After obtaining informed consent, the endoscope was passed under direct vision. Throughout the procedure, the patient's blood pressure, pulse, and oxygen saturations were monitored continuously. The Endoscope was introduced through the mouth, and advanced to the second part of duodenum. The upper GI endoscopy was accomplished without difficulty. The patient tolerated the procedure well. Findings: The Z-line was regular and was found 40 cm from the incisors. Diffuse, white plaques were found in the entire esophagus. Cells for cytology were obtained by brushing. A large, ulcerated mass with no bleeding and no stigmata of recent bleeding was found in the cardia. Biopsies were taken with a cold forceps for histology. Diffuse atrophic mucosa was found in the entire examined stomach. The duodenal bulb and second portion of the duodenum were normal. Impression: - Z-line regular, 40 cm from the incisors. - Esophageal plaques were found, consistent with candidiasis. Cells for cytology obtained. 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 Biopsied. - Gastric mucosal atrophy. - Normal duodenal bulb and second portion of the duodenum. Recommendation: - [facility]. - Resume previous diet. - Continue present medications. - Await pathology results. If pathology is positive for cancer he would need an EUS for staging. He has already had a CT chest/abdomen/pelvis. - Start fluconazole 400 mg loading dose on day 1 followed by 200 mg daily for a total of 21 days for esophageal candidasis. Amy Gutierrez, 04/17/2022 1:54:05 PM Note Initiated On: 04/17/2022 12:55 PM Number of Addenda: 0 I attest to the content of the Intraoperative Record and orders documented therein, exceptions below {[id number]}
[2022-04-17] MEDS ORDERED: FLUCONAZOLE 100 MG TAB PO ONE (14:30)
--- NOTE | 2022-04-17 15:03 | Anesthesiology Progress Note ---
Date of Service April 17, 2022 Anesthesia Post Procedure Vital Signs Vital Signs: Temp Pulse Pulse Resp BP BP Pulse Ox 04/17/22 14:17 87 20 136/75 100 04/17/22 14:02 87 20 108/63 100 04/17/22 13:49 80 20 130/77 100 04/17/22 12:32 36.6 C 102 H 20 151/83 H 100 04/17/22 12:20 36.4 C L 90 18 135/73 99 04/17/22 07:38 80 04/17/22 07:00 36.4 C L 91 H 16 115/65 100 04/17/22 03:05 36.4 C L 79 16 107/65 99 04/17/22 00:01 93 H 04/16/22 20:30 04/16/22 23:40 36.5 C 86 16 105/64 99 04/16/22 20:37 107 H 63/44 L 04/16/22 20:36 102 H 95/61 L 04/16/22 20:34 36.4 C L 98 H 18 135/75 100 04/16/22 19:58 93 H 04/16/22 19:10 36.7 C 102 H 18 136/80 100 O2 Del Method O2 Flow Rate 04/17/22 14:17 Room Air 04/17/22 14:02 Room Air 04/17/22 13:49 Room Air 04/17/22 12:32 Room Air 04/17/22 12:20 Room Air 04/17/22 07:38 04/17/22 07:00 Room Air 04/17/22 03:05 Room Air 04/17/22 00:01 04/16/22 20:30 Room Air 04/16/22 23:40 Room Air 04/16/22 20:37 04/16/22 20:36 04/16/22 20:34 Non-rebreather 15 04/16/22 19:58 04/16/22 19:10 Non-rebreather 15 Transfer of Care Handoff Completed per policy Notes Mental Status: alert / awake / arousable and participated in evaluation Patient Amnestic to Procedure: Yes Nausea / Vomiting: adequately controlled Pain: adequately controlled Airway Patency, RR, SpO2: stable & adequate BP & HR: stable & adequate Hydration State: stable & adequate Anesthetic Complications: no major complications apparent and Pt Satisfied with anesthetic care
[2022-04-17] MEDS: VANCOMYCIN HCL 1,500 MG in SODIUM CHLORIDE 0.9% 500 ML IV SCH (15:44)
--- NOTE | 2022-04-17 16:42 | Hospitalist Progress Note ---
Date of Service April 17, 2022 Assessment & Plan (1) GIB (gastrointestinal bleeding): Plan: Acute blood loss anemia Gastric mass, rule out malignancy Dr. Vera's notes with addendum Patient presents with syncopal collapse after described episode of postural orth ostasis and at least one month of dark tarry stools and inability to eat. He is more anemic now (10.7/39) than in 2019 which was normal. There is a possibility of an acute upper GI bleed at this point. There is a heavy drinking history of 6 beers nightly up until one month ago when he couldn't tolerate alcohol any longer. He is also a smoker. PPI drip now, FOBT, strict I/Os, ensure adequate volume resuscitation while also monitoring his sodium. Na cannot rise past 135 by tomorrow afternoon. GI consult. If there is any brisk bleeding overnight or CT scans reveal any evidence of liver disease, consider the addition of octreotide. Stool culture including rule out cdiff for ongoing loose stools reported 04/16 Hemoglobin from 10.7, now 10.0 No recurrence of melena while admitted GI consulted, plan for EGD tomorrow Continue Protonix drip Check anemia panel 04/17 Hemoglobin stable at 10 No recurrence of GI bleed while admitted Status post EGD showing gastric mass Biopsy program pathology pending DC Protonix drip, changed to Protonix twice daily Advance diet (2) Sepsis: Plan: Patient denies fevers or chills but is hemodynamically unstable and has an elevated WBC count. Will continue broad spectrum antibiotics empirically, however, there is no clear source of infection at this time. Procalcitonin and lactate are pending. 04/16 Remains afebrile Leukocytosis improved from 19, to 11,000 Blood cultures: Pending Chest x-ray: No signs of pneumonia Urinalysis: No signs of UTI 04/17 Blood culture negative so far Afebrile No leukocytosis Continue empiric vancomycin plus cefepime for now Monitor closely Elevated troponin Demand Ischemia Peaked to 1000, trending down to 600 EKG no signs of acute ischemia or infarct Echocardiogram no wall motion abnormality Plumbing Instructor consulted (3) Dyspnea on exertion: Plan: Pneumomediastinum Likely multifactorial given malnourished state, possible GI bleeding, electrolyte disorders, etc. Echo in am. CT chest this evening. 04/17 On room air Not in distress Pulmonary service consulted, likely secondary to coughing Ellipta ordered Mucinex (4) Hyponatremia: Plan: This patient is hypovolemic. Given 3L NSS in the ER. Will trend sodium this evening and ensure not rising beyond 135 by tomorrow afternoon. Will scan chest with CT to ensure no evidence of lung nodules that may be malignancy given long smoker history and weight loss. 12/2 Sodium still at 128 Continue NSS Repeat PRP tomorrow (5) Hypokalemia: Plan: 2/2 poor PO intake. Replace potassium and magnesium now. Repeat in am. Resolved (6) Anemia: Plan: Possible acute blood loss anemia. Hemoglobin remaining the same, around 10 Iron level 57 (7) Severe protein-calorie malnutrition: Plan: nutrition consult. CT chest/abd/pel to screen for contributing factors. CT scans negative for suspicious mass at this point (8) Weight loss, abnormal: Plan: 30 lb weight loss in the past 2 months. EGD tomorrow Patient declining colonoscopy CAT scans not showing any significant/suspicious mass Will need further work-up and management as an outpatient (9) Orthostasis: Plan: likely related to hypovolemia possible from GI bleeding as above. (10) Smoker: Plan: Smoking cessation advised. Nicoderm PRN (11) Thrush, oral: Plan: Poor dentition and overall hygiene. Thrush on both sides of his tongue, which may be contributing to eating issues and weight loss, especially if it extends into the esophagus. GI consult to consider EGD. (12) Weakness: Plan: a result of all issues above. PT/OT consultations requested. (13) DVT prophylaxis: Plan: SCDs/ambulation as tolerated. Chemoprophylaxis contraindicated in setting of possible acute blood loss anemia. Full Code confirmed with him on admission Dispo-pending PT and OT evaluation pending plan of care discussed with patient in detail and at length all questions answered he is understanding, agreeable, comfortable with the plan of care Admission and Anticipated Discharge Date Admission Date: April 15, 2022 Subjective Follow-up for syncope, anemia, etc. Seen status post EGD Resting in bed, comfortable, at the bedside States he feels fine overall Denies dizziness, chest pain, shortness of breath Abdominal pain, nausea vomiting No BMs while admitted Denies headache, problems with urination or bowel movement No other symptoms Review of Systems Review of Systems: all noted and negative except for above Physical Exam Physical Exam: General- oriented x 3, not in distress, speaks in sentences with no effort or accessory muscle use Eyes- anicteric Neck- no JVD Lungs- clear breath sounds bilaterally, no crackles or wheezing Heart- normal rate, regular rhythm; no murmurs Abdomen- normal bowel sounds, nondistended, soft, nontender Extremities-mild edema left lower extremity-no erythema/warmth/tenderness, no calf tenderness Neuro- alert, oriented x 3; no gross focal neurologic deficits Skin- warm & dry Results & Data Results & Data ([facility]) Vital Signs (Past 12 Hours) Vital Signs Temp Pulse Pulse Resp BP Pulse Ox O2 Del Method 04/17/22 16:06 36.5 C 85 16 147/75 H 96 Room Air 04/17/22 14:17 87 20 136/75 100 Room Air 04/17/22 14:02 87 20 108/63 100 Room Air 04/17/22 13:49 80 20 130/77 100 Room Air 04/17/22 12:32 36.6 C 102 H 20 151/83 H 100 Room Air 04/17/22 12:20 36.4 C L 90 18 135/73 99 Room Air 04/17/22 07:38 80 04/17/22 07:00 36.4 C L 91 H 16 115/65 100 Room Air all noted and reviewed including below
[2022-04-17 16:43] LABS: BUN Creatinine Ratio 11.1 (10-20); Calcium 8.5 mg/dl (8.5-10.1); Est GFR (African American) 114.9 ml/min; Est GFR (Non-African American) 99.1 ml/min; Potassium 3.6 mmol/L (3.5-5.1)
--- NOTE | 2022-04-17 20:07 | Electrocardiogram Report ---
Test Reason : Blood Pressure : / mmHG Vent. Rate : 088 BPM Atrial Rate : 088 BPM P-R Int : 176 ms QRS Dur : 088 ms QT Int : 388 ms P-R-T Axes : 083 052 076 degrees QTc Int : 469 ms Normal sinus rhythm Right atrial enlargement Abnormal ECG When compared with ECG of 16-APR-2022 07:34, No significant change was found Confirmed by Wagner Riley ([id number]) on 04/17/2022 8:07:20 PM Referred By: REFERRED SELF Confirmed By:Vaughn Riley
[2022-04-17] MEDS: PANTOprazole 40 MG TAB PO SCH (20:58)
[2022-04-18 08:09] LABS: Basophils # (auto) 0.04 K/uL (0-0.2); Basophils % (auto) 0.4 %; Eosinophils # (auto) 0.12 K/uL (0-0.50); Eosinophils % (auto) 1.3 %; Hematocrit (blood only) 26.1 % (40.1-51.0); Hemoglobin 9.1 g/dl (14.0-18.0); Immature Granulocytes # (auto) 0.04 K/uL (0.00-0.02); Immature Granulocytes % (auto) 0.4 %; Lymphocytes # (auto) 1.68 K/uL (1.2-3.4); Lymphocytes % (auto) 18.6 %; Mean Corpuscular Hemoglobin 33.1 pg (25.0-34.0); Mean Corpuscular Hgb Conc 34.9 g/dL (32.0-36.0); Mean Corpuscular Volume 94.9 fL (80.0-100.0); Mean Platelet Volume 10.9 fL (9.4-12.4); Monocytes # (auto) 0.98 K/uL (0.24-0.82); Monocytes % (auto) 10.9 %; Neutrophils # (auto) 6.17 K/uL (1.4-6.5); Neutrophils % (auto) 68.4 %; Platelet Count 237 K/uL (130-400); RDW Coefficient of Variation 13.5 % (11.5-14.5); RDW Standard Deviation 46.7 fL (36.4-46.3); Red Blood Count 2.75 M/uL (4.63-6.08); White Blood Count 9.03 K/ul (4.8-10.8)
[2022-04-18 08:44] LABS: Calcium 8.5 mg/dl (8.5-10.1); Creatinine Clr Calc Pharmacy 64.1 ml/min; Est GFR (African American) 101.1 ml/min; Est GFR (Non-African American) 87.2 ml/min; Potassium 3.7 mmol/L (3.5-5.1)
[2022-04-18] MEDS: NYSTATIN SUSP 500,000 U/5 ML UDC PO SCH ×4 (08:44→21:03)
[2022-04-18] MEDS: POT PHOSPHATE MONOBASIC W/ SOD TAB PO SCH ×4 (08:44→21:04)
[2022-04-18] MEDS: FLUCONAZOLE 100 MG TAB PO SCH (08:44)
[2022-04-18] MEDS: PANTOprazole 40 MG TAB PO SCH ×2 (08:45→21:03)
[2022-04-18] MEDS: UMECLIDINIUM BROMIDE 62.5MCG/BLISTER 7 PUFFS/INHALER INH SCH (08:45)
[2022-04-18 15:43] LABS: BUN Creatinine Ratio 16.5 (10-20); Calcium 8.6 mg/dl (8.5-10.1); Creatinine Clr Calc Pharmacy 56.8 ml/min; Est GFR (African American) 90.7 ml/min; Est GFR (Non-African American) 78.2 ml/min; Potassium 3.4 mmol/L (3.5-5.1)
[2022-04-18] MEDS ORDERED: POTASSIUM CHLORIDE CRTAB 20 MEQ TABCR PO STA (16:02)
[2022-04-18] MEDS: UREA (UREA-NA) 15 GM PACK PO SCH (16:35)
--- NOTE | 2022-04-18 17:33 | Hospitalist Progress Note ---
Date of Service April 18, 2022 Assessment & Plan (1) GIB (gastrointestinal bleeding): Plan: Acute blood loss anemia Gastric mass, rule out malignancy Dr. Vera's notes with addendum Patient presents with syncopal collapse after described episode of postural orth ostasis and at least one month of dark tarry stools and inability to eat. He is more anemic now (10.7/39) than in 2019 which was normal. There is a possibility of an acute upper GI bleed at this point. There is a heavy drinking history of 6 beers nightly up until one month ago when he couldn't tolerate alcohol any longer. He is also a smoker. PPI drip now, FOBT, strict I/Os, ensure adequate volume resuscitation while also monitoring his sodium. Na cannot rise past 135 by tomorrow afternoon. GI consult. If there is any brisk bleeding overnight or CT scans reveal any evidence of liver disease, consider the addition of octreotide. Stool culture including rule out cdiff for ongoing loose stools reported 04/16 Hemoglobin from 10.7, now 10.0 No recurrence of melena while admitted GI consulted, plan for EGD tomorrow Continue Protonix drip Check anemia panel 04/17 Hemoglobin stable at 10 No recurrence of GI bleed while admitted Status post EGD showing gastric mass Biopsy program pathology pending DC Protonix drip, changed to Protonix twice daily Advance diet 04/18 Hg 9 No signs of GI bleed Biopsy of gastric mass pending Continue Protonix twice daily (2) Sepsis: Plan: Patient denies fevers or chills but is hemodynamically unstable and has an elevated WBC count. Will continue broad spectrum antibiotics empirically, however, there is no clear source of infection at this time. Procalcitonin and lactate are pending. 04/16 Remains afebrile Leukocytosis improved from 19, to 11,000 Blood cultures: Pending Chest x-ray: No signs of pneumonia Urinalysis: No signs of UTI 04/17 Blood culture negative so far Afebrile No leukocytosis Continue empiric vancomycin plus cefepime for now Monitor closely 04/18 Afebrile Blood cultures negative DC antibiotics, monitor Elevated troponin Demand Ischemia Peaked to 1000, trending down to 600 EKG no signs of acute ischemia or infarct Echocardiogram no wall motion abnormality Docketing Specialist consulted (3) Dyspnea on exertion: Plan: Pneumomediastinum Likely multifactorial given malnourished state, possible GI bleeding, electrolyte disorders, etc. Echo in am. CT chest this evening. 04/17 On [id number] Not in distress Pulmonary service consulted, likely secondary to coughing Ellipta ordered Mucinex (4) Hyponatremia: Plan: This patient is hypovolemic. Given 3L NSS in the ER. Will trend sodium this evening and ensure not rising beyond 135 by tomorrow afternoon. Will scan chest with CT to ensure no evidence of lung nodules that may be malignancy given long smoker history and weight loss. 04/18 Sodium trending down, now 124 Possible component of SIADH Analysis Consultant consulted, recommend urea 50 mg twice daily Fluid restriction 1500 cc/day Repeat PRP this evening at 10 PM (5) Hypokalemia: Plan: 2/2 poor PO intake. Replace potassium and magnesium now. Repeat in am. Replaced (6) Anemia: Plan: Possible acute blood loss anemia. Hemoglobin remaining the same, around 9-10 Iron level 57 (7) Severe protein-calorie malnutrition: Plan: nutrition consult. CT chest/abd/pel to screen for contributing factors. CT scans negative for suspicious mass at this point (8) Weight loss, abnormal: Plan: 30 lb weight loss in the past 2 months. EGD tomorrow Patient declining colonoscopy CAT scans not showing any significant/suspicious mass Will need further work-up and management as an outpatient (9) Orthostasis: Plan: likely related to hypovolemia possible from GI bleeding as above. Lisinopril discontinued, may not need lisinopril as patient had significant weight loss for the past few months Monitor closely (10) Smoker: Plan: Smoking cessation advised. Nicoderm PRN (11) Thrush, oral: Plan: Poor dentition and overall hygiene. Thrush on both sides of his tongue, which may be contributing to eating issues and weight loss, especially if it extends into the esophagus. GI consult to consider EGD. (12) Weakness: Plan: a result of all issues above. PT/OT consultations requested. (13) DVT prophylaxis: Plan: SCDs/ambulation as tolerated. Chemoprophylaxis contraindicated in setting of possible acute blood loss anemia. Full Code confirmed with him on admission Dispo-pending PT and OT evaluation pending plan of care discussed with patient in detail and at length all questions answered he is understanding, agreeable, comfortable with the plan of care Admission and Anticipated Discharge Date Admission Date: April 15, 2022 Subjective Follow-up for gastric tumor, etc. Seen resting in bed, sitting up and watching TV Comfortable, not in distress States he feels fine overall No abdominal pain, or signs of GI bleed Appetite is fair Denies headache, fevers or chills, cough, chest pain, problems with urination no other symptoms Review of Systems Review of Systems: all noted and negative except for above Physical Exam Physical Exam: General- oriented x 3, not in distress, speaks in sentences with no effort or accessory muscle use Eyes- anicteric Neck- no JVD Lungs- clear breath sounds bilaterally, no crackles or wheezing Heart- normal rate, regular rhythm; no murmurs Abdomen- normal bowel sounds, nondistended, soft, nontender Extremities- no pretibial edema, no calf tenderness Neuro- alert, oriented x 3; no gross focal neurologic deficits Skin- warm & dry Results & Data Results & Data ([facility]) Vital Signs (Past 12 Hours) Vital Signs Temp Pulse Pulse Resp BP Pulse Ox O2 Del Method 04/18/22 15:42 36.5 C 89 20 139/70 100 Room Air 04/18/22 08:00 82 04/18/22 10:52 36.4 C L 97 H 19 118/64 97 Room Air 04/18/22 07:11 36.6 C 87 20 105/55 L Room Air all noted and reviewed including below
[2022-04-18 23:20] LABS: BUN Creatinine Ratio 33.3 (10-20); Calcium 8.5 mg/dl (8.5-10.1); Creatinine Clr Calc Pharmacy 59.3 ml/min; Est GFR (African American) 95.4 ml/min; Est GFR (Non-African American) 82.3 ml/min; Potassium 3.7 mmol/L (3.5-5.1)
[2022-04-19 05:57] LABS: BUN Creatinine Ratio 27.7 (10-20); Calcium 8.7 mg/dl (8.5-10.1); Creatinine Clr Calc Pharmacy 58.6 ml/min; Est GFR (African American) 94.2 ml/min; Est GFR (Non-African American) 81.2 ml/min; Magnesium 1.5 mg/dl (1.7-2.4); Phosphorus 3.9 mg/dl (2.5-4.9); Potassium 3.6 mmol/L (3.5-5.1)
[2022-04-19] MEDS ORDERED: MAGNESIUM SULFATE / D5W 1 GM/100 ML BAG IV ONE (08:25)
[2022-04-19] MEDS: POT PHOSPHATE MONOBASIC W/ SOD TAB PO SCH ×4 (09:36→21:44)
[2022-04-19] MEDS: NYSTATIN SUSP 500,000 U/5 ML UDC PO SCH ×4 (09:36→21:44)
[2022-04-19] MEDS: UMECLIDINIUM BROMIDE 62.5MCG/BLISTER 7 PUFFS/INHALER INH SCH (09:36)
[2022-04-19] MEDS: PANTOprazole 40 MG TAB PO SCH ×2 (09:36→21:44)
[2022-04-19] MEDS: UREA (UREA-NA) 15 GM PACK PO SCH ×2 (09:36→21:45)
[2022-04-19] MEDS: FLUCONAZOLE 100 MG TAB PO SCH (09:36)
[2022-04-19] MEDS: SODIUM CHLORIDE 0.9% 1000ML 1,000 ML IV SCH ×2 (10:06→21:43)
--- NOTE | 2022-04-19 15:00 | Hospitalist Progress Note ---
Date of Service April 19, 2022 Assessment & Plan (1) GIB (gastrointestinal bleeding): Plan: Acute blood loss anemia Gastric mass, rule out malignancy Dr. Vera's notes with addendum Patient presents with syncopal collapse after described episode of postural orth ostasis and at least one month of dark tarry stools and inability to eat. He is more anemic now (10.7/39) than in 2019 which was normal. There is a possibility of an acute upper GI bleed at this point. There is a heavy drinking history of 6 beers nightly up until one month ago when he couldn't tolerate alcohol any longer. He is also a smoker. PPI drip now, FOBT, strict I/Os, ensure adequate volume resuscitation while also monitoring his sodium. Na cannot rise past 135 by tomorrow afternoon. GI consult. If there is any brisk bleeding overnight or CT scans reveal any evidence of liver disease, consider the addition of octreotide. Stool culture including rule out cdiff for ongoing loose stools reported 04/16 Hemoglobin from 10.7, now 10.0 No recurrence of melena while admitted GI consulted, plan for EGD tomorrow Continue Protonix drip Check anemia panel 04/17 Hemoglobin stable at 10 No recurrence of GI bleed while admitted Status post EGD showing gastric mass Biopsy program pathology pending DC Protonix drip, changed to Protonix twice daily Advance diet 12/3 Hg 9 No signs of GI bleed Biopsy of gastric mass pending Continue Protonix twice daily 12/4 Hg stable no recurrence of GI bleed Path reportp ending (2) Sepsis: Plan: Patient denies fevers or chills but is hemodynamically unstable and has an eleva keyur WBC count. Will continue broad spectrum antibiotics empirically, however, there is no clear source of infection at this time. Procalcitonin and lactate are pending. 04/16 Remains afebrile Leukocytosis improved from 19, to 11,000 Blood cultures: Pending Chest x-ray: No signs of pneumonia Urinalysis: No signs of UTI 04/17 Blood culture negative so far Afebrile No leukocytosis Continue empiric vancomycin plus cefepime for now Monitor closely 12/3 Afebrile Blood cultures negative DC antibiotics, monitor 12/4 afebrile off Abx cultures negative Elevated troponin Demand Ischemia Peaked to 1000, trending down to 600 EKG no signs of acute ischemia or infarct Echocardiogram no wall motion abnormality New Grad Rn consulted (3) Dyspnea on exertion: Plan: Pneumomediastinum Likely multifactorial given malnourished state, possible GI bleeding, electrolyte disorders, etc. Echo in am. CT chest this evening. 12/ On room air Not in distress Pulmonary service consulted, likely secondary to coughing Ellipta ordered Mucinex (4) Hyponatremia: Plan: This patient is hypovolemic. Given 3L NSS in the ER. Will trend sodium this evening and ensure not rising beyond 135 by tomorrow afternoon. Will scan chest with CT to ensure no evidence of lung nodules that may be malignancy given long smoker history and weight loss. 12/ Sodium still at 125 Possible component of SIADH Director Veterinary consulted, recommend urea 50 mg twice daily Fluid restriction 1500 cc/day - BP low this AM - IV NSS re-ordered awaiting nephro recs (5) Hypokalemia: Plan: 2/2 poor PO intake. Replace potassium and magnesium now. Repeat in am. Replaced (6) Anemia: Plan: Possible acute blood loss anemia. Hemoglobin remaining the same, around 9-10 Iron level 57 (7) Severe protein-calorie malnutrition: Plan: nutrition consult. CT chest/abd/pel to screen for contributing factors. CT scans negative for suspicious mass at this point (8) Weight loss, abnormal: Plan: 30 lb weight loss in the past 2 months. EGD tomorrow Patient declining colonoscopy CAT scans not showing any significant/suspicious mass Will need further work-up and management as an outpatient (9) Orthostasis: Plan: likely related to hypovolemia possible from GI bleeding as above. Lisinopril discontinued, may not need lisinopril as patient had significant weight loss for the past few months Monitor closely (10) Smoker: Plan: Smoking cessation advised. Nicoderm PRN (11) Thrush, oral: Plan: Poor dentition and overall hygiene. Thrush on both sides of his tongue, which may be contributing to eating issues and weight loss, especially if it extends into the esophagus. GI consult to consider EGD. (12) Weakness: Plan: a result of all issues above. PT/OT consultations requested. (13) DVT prophylaxis: Plan: SCDs/ambulation as tolerated. Chemoprophylaxis contraindicated in setting of possible acute blood loss anemia. Full Code confirmed with him on admission Dispo-pending PT and OT evaluation pending plan of care discussed with patient in detail and at length all questions answered he is understanding, agreeable, comfortable with the plan of care Admission and Anticipated Discharge Date Admission Date: April 15, 2022 Subjective ff up for hyponatremia, gastric mass, syncope, etc seen resting in bed, comfortable had low bP this AM, denies dizziness, presyncope, chest pain, palpitations no abdominal pain, nausea/vomiting had BM yesterday, no bleeding no other symptoms Review of Systems Review of Systems: all noted and negative except for above Physical Exam Physical Exam: General- oriented x 3, not in distress, speaks in sentences with no effort or accessory muscle use Eyes- anicteric Neck- no JVD Lungs- clear BS bilaterally, no rales/wheezes Heart- normal rate, regular rhythm; no murmurs Abdomen- normal bowel sounds, nondistended, soft, nontender Extremities- no pretibial edema, no calf tenderness Neuro- alert, oriented x 3; no gross focal neurologic deficits Skin- warm & dry Results & Data Results & Data ([facility]) Vital Signs (Past 12 Hours) Vital Signs Temp Pulse Pulse Resp BP BP Pulse Ox 04/19/22 08:00 78 04/19/22 11:13 36.5 C 91 H 16 117/65 100 04/19/22 08:45 90/47 L 04/19/22 08:41 36.4 C L 104 H 18 89/49 L 93 O2 Del Method 04/19/22 08:00 04/19/22 11:13 Room Air 04/19/22 08:45 04/19/22 08:41 Room Air all noted and reviewed including below
[2022-04-19 16:41] LABS: BUN Creatinine Ratio 41.8 (10-20); Calcium 8.4 mg/dl (8.5-10.1); Creatinine Clr Calc Pharmacy 56.5 ml/min; Est GFR (African American) 89.5 ml/min; Est GFR (Non-African American) 77.3 ml/min; Magnesium 1.7 mg/dl (1.7-2.4); Phosphorus 3.5 mg/dl (2.5-4.9); Potassium 3.6 mmol/L (3.5-5.1)
[2022-04-19] MEDS ORDERED: SODIUM CHLORIDE 0.9% 1000ML 1,000 ML IV SCH (17:00)
[2022-04-19] MEDS: FUROSEMIDE INJ 20 MG/2 ML VIAL IV SCH (17:18)
--- NOTE | 2022-04-19 18:39 | Consultation Report ---
NEPHROLOGY CONSULTATION NOTE DATE OF SERVICE: 04/19/2022. REASON FOR CONSULTATION: Hyponatremia. HISTORY OF PRESENT ILLNESS: The patient is a 72-year-old male who has been in the hospital now for 5 days after he presented to the hospital with 30-pound weight loss, poor appetite and melanotic stool. He was also getting increasingly lightheaded and dizzy and eventually had a syncopal episode before presenting to the hospital. He has had a few other episodes of syncopal episode prior to hospitalization. At the time of admission, patient's sodium was 127 and since then for the last 5 days, it has fluctuated anywhere from 123 to 130. The patient's appetite is very poor and he is eating less than 25% of his solid food. He had endoscopy done, which shows a possible gastric malignancy; however, the final biopsy is not available at this time. At the time of admission, his urine specific gravity was very low at 1.005. Urine osmolality was somewhat low at 270 and urine sodium was 96. Since admission, he has received some IV fluid and he is currently getting IV fluid as well as urea which was started yesterday. Since the start of urea, sodium has gone up from 123-125. Kidney function is normal with a creatinine less than 1. CT and abdomen CAT scan shows some COPD, possible mass in the gastric area. However, kidney was not noted to be obstructed. PAST MEDICAL AND SURGICAL HISTORY: Includes hypertension, COPD with longstanding history of smoking. ALLERGIES: None. HOME MEDICATIONS: Included lisinopril and lactobacillus. PAST SURGICAL HISTORY: Left knee surgery, history of surgery on lower extremity. FAMILY HISTORY: Positive for Alzheimer's and hypertension. No renal disease or dialysis. SOCIAL HISTORY: A 5-10 cigarettes daily for many years and still smoking. Fairly regular alcohol intake, almost daily. He is single, but has a girlfriend who lives with him. He does use cane, but no oxygen at home. REVIEW OF SYSTEMS: As detailed in HPI. Positive for increasing weight more than 30 pounds within the last month or two. Decreasing appetite, dark melanotic stool. Occasional nausea. Otherwise, 12 systems reviewed and negative. PHYSICAL EXAMINATION: GENERAL: Elderly white male who appears to be quite malnourished and cachectic. He is awake, alert, oriented x3, able to give me a detailed account of his medical history, which is not very detailed, more complicated. HEENT: Mucous membrane is moist. NECK: Supple. No jugular venous distention. CHEST: Bilateral prolonged expiration, occasional wheezing. CARDIOVASCULAR: S1 and S2, regular. ABDOMEN: Soft, nontender. EXTREMITIES: Show no edema in the right. There is some chronic wound in his left leg, but is not different than usual. LABORATORY TESTS: At the time of admission, his hemoglobin was 9.7, most recently today is 9.1. Sodium today is 125, potassium 3.6, but he has had low potassium before and has been corrected. BUN 26, creatinine 0.94, glucose 82. Serum osmolarity was 259. Magnesium 1.5, phosphorus 3.9, calcium 8.7. Urine osmolarity 270 at the time of admission. Urine sodium 96. Lowest urine specific gravity. ASSESSMENT AND PLAN: A 72-year-old male with possible gastric malignancy and presented with significant weight loss, orthostatic syncope. He had hyponatremia at the time of admission and he still does. 1. Hyponatremia, most likely secondary to low osmolar diet. He really has not had much solid food intake. And has been losing significant amount of weight. He does have possible gastric malignancy as well as underlying COPD, both of which makes him much more susceptible for underlying background SIADH. Given his oral intake of solid food, is still so low, it will be very difficult to increase the serum sodium, but he does not have a critically dangerous level of 120. RECOMMENDATIONS: 1. BMP q.12 hours. 2. Fluid restriction 1200 mL per day. 3. Continue urea 15 grams twice daily, but we do have to keep an eye on the BUN level, which seems to be rising quite fast. 4. Normal saline can be continued at the current rate of 80 mL per hour. 5. As much as possible, try to encourage solid food intake. Unless that increase, it will be impossible to get his serum sodium up. 6. Would like to repeat a urine osmolarity and serum osmolarity to see where he stands at this point. Thank you very much for the consult. Job ID: [id number] GEORGES
[2022-04-20] MEDS: FUROSEMIDE INJ 20 MG/2 ML VIAL IV SCH ×3 (01:12→16:43)
[2022-04-20 06:13] LABS: Basophils # (auto) 0.04 K/uL (0-0.2); Basophils % (auto) 0.4 %; Eosinophils # (auto) 0.22 K/uL (0-0.50); Hemoglobin 9.1 g/dl (14.0-18.0); Immature Granulocytes # (auto) 0.08 K/uL (0.00-0.02); Immature Granulocytes % (auto) 0.7 %; Lymphocytes # (auto) 2.72 K/uL (1.2-3.4); Lymphocytes % (auto) 24.8 %; Mean Corpuscular Hemoglobin 33.3 pg (25.0-34.0); Mean Corpuscular Volume 95.2 fL (80.0-100.0); Mean Platelet Volume 10.8 fL (9.4-12.4); Monocytes # (auto) 1.17 K/uL (0.24-0.82); Monocytes % (auto) 10.7 %; Neutrophils # (auto) 6.72 K/uL (1.4-6.5); Neutrophils % (auto) 61.4 %; Platelet Count 271 K/uL (130-400); RDW Coefficient of Variation 13.6 % (11.5-14.5); RDW Standard Deviation 47.3 fL (36.4-46.3); Red Blood Count 2.73 M/uL (4.63-6.08); White Blood Count 10.95 K/ul (4.8-10.8)
[2022-04-20 06:37] LABS: BUN Creatinine Ratio 39.6 (10-20); Calcium 8.5 mg/dl (8.5-10.1); Creatinine Clr Calc Pharmacy 58.8 ml/min; Est GFR (African American) 91.8 ml/min; Est GFR (Non-African American) 79.2 ml/min; Magnesium 1.7 mg/dl (1.7-2.4); Potassium 3.5 mmol/L (3.5-5.1)
[2022-04-20] MEDS: POT PHOSPHATE MONOBASIC W/ SOD TAB PO SCH ×4 (08:04→21:38)
[2022-04-20] MEDS: PANTOprazole 40 MG TAB PO SCH ×2 (08:04→21:38)
[2022-04-20] MEDS: UREA (UREA-NA) 15 GM PACK PO SCH ×2 (08:04→21:38)
[2022-04-20] MEDS: FLUCONAZOLE 100 MG TAB PO SCH (08:04)
[2022-04-20] MEDS: UMECLIDINIUM BROMIDE 62.5MCG/BLISTER 7 PUFFS/INHALER INH SCH (08:05)
[2022-04-20] MEDS: NYSTATIN SUSP 500,000 U/5 ML UDC PO SCH ×4 (08:05→21:37)
--- NOTE | 2022-04-20 09:03 | Nephrology Progress Note ---
Date of Service April 20, 2022 Assessment & Plan Admission and Anticipated Discharge Date Admission Date: April 15, 2022 Subjective S--no new issues. Po intake low. PHYSICAL EXAMINATION: GENERAL: Elderly white male who appears to be quite malnourished and cachectic. He is awake, alert, oriented x3, able to give me a detailed account of his medical history, which is not very detailed, more complicated. HEENT: Mucous membrane is moist. NECK: Supple. No jugular venous distention. CHEST: Bilateral prolonged expiration, occasional wheezing. CARDIOVASCULAR: S1 and S2, regular. ABDOMEN: Soft, nontender. EXTREMITIES: Show no edema in the right. There is some chronic wound in his left leg, but is not different than usual. LABORATORY TESTS: na 127 now. urine osm high at 500+ ASSESSMENT AND PLAN: A 72-year-old male with possible gastric malignancy and presented with significant weight loss, orthostatic syncope. He had hyponatremia at the time of admission and he still does. 1. Hyponatremia, most likely secondary to low osmolar diet with some worsening of SIADH. . He really has not had much solid food intake. And has been losing significant amount of weight. He does have possible gastric malignancy as well as underlying COPD, both of which makes him much more susceptible for underlying background SIADH. Given his oral intake of solid food, is still so low, it will be very difficult to increase the serum sodium, but he does not have a critically dangerous level of 120. RECOMMENDATIONS: 1. BMP q.12 hours. 2. Fluid restriction 1200 mL per day. 3. Continue urea 15 grams twice daily, but we do have to keep an eye on the BUN level. 4. Continue NS at 100 per hr and Iv lasix ( to lower urine osm) 5. As much as possible, try to encourage solid food intake. Unless that increase, it will be impossible to get his serum sodium up. Results & Data ([facility]) Vital Signs (Past 12 Hours) Vital Signs Temp Pulse Pulse Resp BP Pulse Ox O2 Del Method 04/20/22 07:30 36.5 C 91 H 18 96/54 L 96 Room Air 04/20/22 05:44 138/66 04/20/22 05:38 85/50 L 04/20/22 03:30 36.5 C 86 18 107/64 99 Room Air 04/19/22 23:37 94 H 04/19/22 23:09 36.6 C 92 H 18 111/66 98 Room Air
[2022-04-20] MEDS: SODIUM CHLORIDE 0.9% 1000ML 1,000 ML IV SCH ×2 (10:05→21:48)
[2022-04-20 18:58] LABS: BUN Creatinine Ratio 32.4 (10-20); Calcium 8.5 mg/dl (8.5-10.1); Creatinine Clr Calc Pharmacy 55.3 ml/min; Est GFR (African American) 85.3 ml/min; Est GFR (Non-African American) 73.6 ml/min; Potassium 3.5 mmol/L (3.5-5.1)
--- NOTE | 2022-04-20 19:47 | Hospitalist Progress Note ---
Date of Service April 20, 2022 Assessment & Plan (1) GIB (gastrointestinal bleeding): Plan: Acute blood loss anemia Gastric mass, rule out malignancy Dr. Vera's notes with addendum Patient presents with syncopal collapse after described episode of postural orth ostasis and at least one month of dark tarry stools and inability to eat. He is more anemic now (10.7/39) than in 2019 which was normal. There is a possibility of an acute upper GI bleed at this point. There is a heavy drinking history of 6 beers nightly up until one month ago when he couldn't tolerate alcohol any longer. He is also a smoker. PPI drip now, FOBT, strict I/Os, ensure adequate volume resuscitation while also monitoring his sodium. Na cannot rise past 135 by tomorrow afternoon. GI consult. If there is any brisk bleeding overnight or CT scans reveal any evidence of liver disease, consider the addition of octreotide. Stool culture including rule out cdiff for ongoing loose stools reported 04/16 Hemoglobin from 10.7, now 10.0 No recurrence of melena while admitted GI consulted, plan for EGD tomorrow Continue Protonix drip Check anemia panel 04/17 Hemoglobin stable at 10 No recurrence of GI bleed while admitted Status post EGD showing gastric mass Biopsy program pathology pending DC Protonix drip, changed to Protonix twice daily Advance diet 12/3 Hg 9 No signs of GI bleed Biopsy of gastric mass pending Continue Protonix twice daily 12/4 Hg stable no recurrence of GI bleed Path reportp ending 04/20 Hemoglobin stable around 9 No signs of GI bleed Pathology report: Stomach, gastric mass, biopsy: - Severe chronic active gastritis with ulceration. - Intestinal metaplasia, complete subtype. Negative for dysplasia. - Helicobacter pylori immunohistochemistry stain: Negative. - Clinical correlation is recommended. - See comment. Comment: The history of a mass is noted. A neoplastic process is not identified in the current specimen. Areas of epithelium show nuclear atypia but this is in keeping with a reactive process related to inflammation rather than dysplasia. (2) Sepsis: Plan: Patient denies fevers or chills but is hemodynamically unstable and has an elevated WBC count. Will continue broad spectrum antibiotics empirically, however, there is no clear source of infection at this time. Procalcitonin and lactate are pending. 04/16 Remains afebrile Leukocytosis improved from 19, to 11,000 Blood cultures: Pending Chest x-ray: No signs of pneumonia Urinalysis: No signs of UTI / Blood culture negative so far Afebrile No leukocytosis Continue empiric vancomycin plus cefepime for now Monitor closely 12/3 Afebrile Blood cultures negative DC antibiotics, monitor 12/ afebrile off Abx cultures negative 12 Afebrile x2 days no Cultures negative Elevated troponin Demand Ischemia Peaked to 1000, trending down to 600 EKG no signs of acute ischemia or infarct Echocardiogram no wall motion abnormality Brattice Builder consulted (3) Dyspnea on exertion: Plan: Pneumomediastinum Likely multifactorial given malnourished state, possible GI bleeding, electrolyte disorders, etc. Echo in am. CT chest this evening. 04/20 On room air Not in distress Pulmonary service consulted, likely secondary to coughing Ellipta ordered Mucinex (4) Hyponatremia: Plan: This patient is hypovolemic. Given 3L NSS in the ER. Will trend sodium this evening and ensure not rising beyond 135 by tomorrow afternoon. Will scan chest with CT to ensure no evidence of lung nodules that may be malignancy given long smoker history and weight loss. 04/20 Sodium gradually increasing, now 128 Possible component of SIADH Manager Administrative consulted, recommend urea 50 mg twice daily IV NSS plus Lasix every 8 hours Fluid restriction Orthostatic hypotension Possible component of hypovolemia, rule out adrenal insufficiency Cortisol a.m. normal Will do cosyntropin test in the morning (5) Hypokalemia: Plan: 2/2 poor PO intake. Replace potassium and magnesium now. Repeat in am. Replaced (6) Anemia: Plan: Possible acute blood loss anemia. Hemoglobin remaining the same, around 9-10 Iron level 57 (7) Severe protein-calorie malnutrition: Plan: nutrition consult. CT chest/abd/pel to screen for contributing factors. CT scans negative for suspicious mass at this point (8) Weight loss, abnormal: Plan: 30 lb weight loss in the past 2 months. EGD tomorrow Patient declining colonoscopy CAT scans not showing any significant/suspicious mass Will need further work-up and management as an outpatient (9) Orthostasis: Plan: likely related to hypovolemia possible from GI bleeding as above. Lisinopril discontinued, may not need lisinopril as patient had significant weight loss for the past few months Monitor closely (10) Smoker: Plan: Smoking cessation advised. Eulalio WHITE (11) Thrush, oral: Plan: Poor dentition and overall hygiene. Thrush on both sides of his tongue, which may be contributing to eating issues and weight loss, especially if it extends into the esophagus. GI consult to consider EGD. (12) Weakness: Plan: a result of all issues above. PT/OT consultations requested. (13) DVT prophylaxis: Plan: SCDs/ambulation as tolerated. Chemoprophylaxis contraindicated in setting of possible acute blood loss anemia. Full Code confirmed with him on admission Dispo-pending PT and OT evaluation pending plan of care discussed with patient in detail and at length all questions answered he is understanding, agreeable, comfortable with the plan of care Admission and Anticipated Discharge Date Admission Date: April 15, 2022 Subjective Follow-up for hyponatremia, possible SIADH, gastric mass, etc. Seen resting in bed, sitting up, watching TV comfortable States he feels fine overall Had some dizziness when standing today Denies chest pain, palpitation, shortness of breath Denies abdominal pain Tolerating food well, appetite improving, ate full lunch No other symptoms Review of Systems Review of Systems: all noted and negative except for above Physical Exam Physical Exam: General- oriented x 3, not in distress, speaks in sentences with no effort or accessory muscle use Eyes- anicteric Neck- no JVD Lungs- clear BS BL Heart- normal rate, regular rhythm; no murmurs Abdomen- normal bowel sounds, nondistended, soft, nontender Extremities- no pretibial edema, no calf tenderness Neuro- alert, oriented x 3; no gross focal neurologic deficits Skin- warm & dry Results & Data Results & Data ([facility]) Vital Signs (Past 12 Hours) Vital Signs Temp Pulse Pulse Resp BP Pulse Ox O2 Del Method 04/20/22 18:59 36.7 C 92 H 18 128/66 100 Room Air 04/20/22 16:01 36.8 C 88 18 124/59 L 93 Room Air 04/20/22 15:29 90 04/20/22 08:00 Room Air 04/20/22 11:23 36.6 C 111 H 18 103/45 L 96 Room Air 04/20/22 08:00 86 all noted and reviewed including below
[2022-04-21] MEDS: FUROSEMIDE INJ 20 MG/2 ML VIAL IV SCH ×3 (00:25→16:54)
[2022-04-21] MEDS ORDERED: COSYNTROPIN 1 MCG in SYRINGE 0 ML IV ONE (08:00)
[2022-04-21] MEDS: UMECLIDINIUM BROMIDE 62.5MCG/BLISTER 7 PUFFS/INHALER INH SCH (09:29)
[2022-04-21] MEDS: UREA (UREA-NA) 15 GM PACK PO SCH ×2 (09:30→20:30)
[2022-04-21] MEDS: POT PHOSPHATE MONOBASIC W/ SOD TAB PO SCH ×4 (09:30→20:28)
[2022-04-21] MEDS: NYSTATIN SUSP 500,000 U/5 ML UDC PO SCH ×4 (09:30→20:28)
[2022-04-21] MEDS: FLUCONAZOLE 100 MG TAB PO SCH (09:31)
--- NOTE | 2022-04-21 10:33 | Nephrology Progress Note ---
Date of Service April 21, 2022 Assessment & Plan Admission and Anticipated Discharge Date Admission Date: April 15, 2022 Subjective Subjective S--no new issues. Po intake still low. PHYSICAL EXAMINATION: GENERAL: Elderly white male who appears to be quite malnourished and cachectic. He is awake, alert, oriented x3, able to give me a detailed account of his medical history, which is not very detailed, more complicated. HEENT: Mucous membrane is moist. NECK: Supple. No jugular venous distention. CHEST: Bilateral prolonged expiration, occasional wheezing. CARDIOVASCULAR: S1 and S2, regular. ABDOMEN: Soft, nontender. EXTREMITIES: Show no edema in the right. There is some chronic wound in his left leg, but is not different than usual. LABORATORY TESTS: na 127. urine osm high at 500+. AM labs today is pending. ASSESSMENT AND PLAN: A 72-year-old male with possible gastric malignancy and presented with significant weight loss, orthostatic syncope. He had hyponatremia at the time of admission and he still does. 1. Hyponatremia, most likely secondary to low osmolar diet with some worsening of SIADH. . He really has not had much solid food intake. And has been losing significant amount of weight. He does have possible gastric malignancy as well as underlying COPD, both of which makes him much more susceptible for underlying background SIADH. Given his oral intake of solid food, is still so low, it will be very difficult to increase the serum sodium, but he does not have a critically dangerous level of 120. RECOMMENDATIONS: 1. BMP q.12 hours. 2. Continue Fluid restriction 1200 mL per day. 3. Continue urea 15 grams twice daily, but we do have to keep an eye on the BUN level. 4. Continue NS at 100 per hr and Iv lasix ( to lower urine osm)--Will change after AM labs from today available 5. As much as possible, try to encourage solid food intake. Unless that increase, it will be impossible to get his serum sodium up. Results & Data ([facility]) Vital Signs (Past 12 Hours) Vital Signs Temp Pulse Resp BP Pulse Ox O2 Del Method O2 Del Method 04/21/22 07:17 36.6 C 86 17 96/47 L 98 Room Air 04/21/22 04:00 Room Air 04/21/22 03:55 36.7 C 91 H 16 103/62 99 Room Air 04/21/22 00:25 36.5 C 90 16 139/69 100 Room Air
[2022-04-21] MEDS: PANTOprazole 40 MG TAB PO SCH ×2 (10:41→20:28)
[2022-04-21] MEDS: SODIUM CHLORIDE 0.9% 1000ML 1,000 ML IV SCH ×2 (10:41→22:39)
[2022-04-21 13:41] LABS: BUN Creatinine Ratio 34.8 (10-20); Calcium 8.3 mg/dl (8.5-10.1); Creatinine Clr Calc Pharmacy 64.7 ml/min; Est GFR (African American) 99.7 ml/min; Potassium 3.4 mmol/L (3.5-5.1)
--- NOTE | 2022-04-21 14:04 | Electrocardiogram Report ---
Test Reason : Blood Pressure : / mmHG Vent. Rate : 086 BPM Atrial Rate : 086 BPM P-R Int : 202 ms QRS Dur : 084 ms QT Int : 404 ms P-R-T Axes : 080 029 072 degrees QTc Int : 483 ms Poor data quality, interpretation may be adversely affected Normal sinus rhythm Biatrial enlargement Abnormal ECG When compared with ECG of 15-APR-2022 16:06, (unconfirmed) No significant change was found Confirmed by Wagner Riley ([id number] on 04/16/2022 8:48:12 PM Referred By: REFERRED SELF Confirmed By:Vaughn Riley
--- NOTE | 2022-04-21 14:04 | Electrocardiogram Report ---
Test Reason : Blood Pressure : / mmHG Vent. Rate : 103 BPM Atrial Rate : 103 BPM P-R Int : 196 ms QRS Dur : 092 ms QT Int : 352 ms P-R-T Axes : 081 025 068 degrees QTc Int : 461 ms Poor data quality, interpretation may be adversely affected Sinus tachycardia Biatrial enlargement Abnormal ECG Confirmed by Wagner Riley ([id number] on 04/16/2022 7:01:32 PM Referred By: REFERRED SELF Confirmed By:Vaughn Riley
--- NOTE | 2022-04-21 17:28 | Communication Note ---
Date of Service: April 21, 2022 Reviewed pathology with the pt from EGD done 04/17/22 - shows severe chronic active gastritis with ulceration. Intestinal metaplasia, complete subtype. Negative for dysplasia. Helicobacter pylori immunochemistry stain: Negative. Recommendations: Add Carafate 4 times daily, will start now as an inpatient and please continue on discharge Continue PPI twice daily - No NSAIDs, ETOH or tobacco Our office will arrange follow-up EUS and colonoscopy (with history of weight loss) for further evaluation. GI will sign off. Recall GI if needed
--- NOTE | 2022-04-21 19:59 | Hospitalist Progress Note ---
Date of Service April 21, 2022 delayed entry date of service noted above Assessment & Plan (1) GIB (gastrointestinal bleeding): Plan: Acute blood loss anemia Gastric mass, rule out malignancy Dr. Vera's notes with addendum Patient presents with syncopal collapse after described episode of postural orthostasis and at least one month of dark tarry stools and inability to eat. He is more anemic now (10.7/39) than in 2019 which was normal. There is a possibility of an acute upper GI bleed at this point. There is a heavy drinking history of 6 beers nightly up until one month ago when he couldn't tolerate alcohol any longer. He is also a smoker. PPI drip now, FOBT, strict I/Os, ensure adequate volume resuscitation while also monitoring his sodium. Na cannot rise past 135 by tomorrow afternoon. GI consult. If there is any brisk bleeding overnight or CT scans reveal any evidence of liver disease, consider the addition of octreotide. Stool culture including rule out cdiff for ongoing loose stools reported Status post EGD showing gastric mass Pathology report: Stomach, gastric mass, biopsy: - Severe chronic active gastritis with ulceration. - Intestinal metaplasia, complete subtype. Negative for dysplasia. - Helicobacter pylori immunohistochemistry stain: Negative. - Clinical correlation is recommended. Comment: The history of a mass is noted. A neoplastic process is not identified in the current specimen. Areas of epithelium show nuclear atypia but this is in keeping with a reactive process related to inflammation rather than dysplasia. DC Protonix drip, changed to Protonix twice daily Advanced diet Hg stable at 9 No signs of GI bleed needs to ff up with GI as outpatient (2) Sepsis: Plan: Patient denies fevers or chills but is hemodynamically unstable and has an elevated WBC count. Will continue broad spectrum antibiotics empirically, however, there is no clear source of infection at this time. Procalcitonin and lactate are pending. Leukocytosis improved from 19, to 11,000 Blood cultures: Pending Chest x-ray: No signs of pneumonia Urinalysis: No signs of UTI given Vanco + Cefepime, discontinued afebrile off Abx Elevated troponin Demand Ischemia Peaked to 1000, trending down to 600 EKG no signs of acute ischemia or infarct Echocardiogram no wall motion abnormality Child Life Specialist consulted (3) Dyspnea on exertion: Plan: Pneumomediastinum Likely multifactorial given malnourished state, possible GI bleeding, electrolyte disorders, etc. Echo in am. CT chest this evening. 04/21 On room air Not in distress Pulmonary service consulted, likely secondary to coughing Ellipta ordered Mucinex (4) Hyponatremia: Plan: This patient is hypovolemic. Given 3L NSS in the ER. 04/21 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 of SIADH Sausage Smoker consulted urea 50 mg twice daily IV NSS plus Lasix every 8 hours Fluid restriction Orthostatic hypotension Possible component of hypovolemia Cosyntropin test negative Wang Hose IV fluids as per above (5) Hypokalemia: Plan: Replaced (6) Anemia: Plan: Possible acute blood loss anemia. Hemoglobin remaining the same, around 9-10 Iron level 57 (7) Severe protein-calorie malnutrition: Plan: nutrition consult. CT chest/abd/pel to screen for contributing factors. EGD: gastric mass (8) Weight loss, abnormal: Plan: 30 lb weight loss in the past 2 months. sp EGD Patient declining colonoscopy CAT scans not showing any significant/suspicious mass Will need further work-up and management as an outpatient (9) Orthostasis: Plan: likely related to hypovolemia possible from GI bleeding as above. Lisinopril discontinued, may not need lisinopril as patient had significant weight loss for the past few months Monitor closely (10) Smoker: Plan: Smoking cessation advised. Nicoderm PRN (11) Thrush, oral: Plan: on Fluconazole for esophageal candidal plaques (12) Weakness: Plan: a result of all issues above. PT/OT consultations requested. (13) DVT prophylaxis: Plan: SCDs/ambulation as tolerated. Chemoprophylaxis contraindicated in setting of possible acute blood loss anemia. Full Code confirmed with him on admission Dispo-pending PT and OT evaluation: recommend return home plan of care discussed with patient in detail and at length all questions answered he is understanding, agreeable, comfortable with the plan of care Admission and Anticipated Discharge Date Admission Date: April 15, 2022 Subjective ff up for gastric mass, hyponatremia, etc seen resting in bed sitting up, watching TV comfortable in good spirits had some dizziness upon standing today no chest pain, dyspnea, palpitations no abdominal pain, nausea/vomiting no other symptoms Review of Systems Review of Systems: all noted and negative except for above Physical Exam Physical Exam: General- oriented x 3, not in distress, speaks in sentences with no effort or accessory muscle use Eyes- anicteric Neck- no JVD Lungs- clear BS BL Heart- normal rate, regular rhythm; no murmurs Abdomen- normal bowel sounds, nondistended, soft, nontender Extremities- no pretibial edema, no calf tenderness Neuro- alert, oriented x 3; no gross focal neurologic deficits Skin- warm & dry Results & Data Results & Data ([facility]) Vital Signs (Past 12 Hours) Vital Signs Temp Pulse Resp BP Pulse Ox O2 Del Method 04/21/22 16:56 122/56 L 04/21/22 15:33 36.8 C 104 H 18 90/47 L 99 Room Air 04/21/22 11:45 36.8 C 108 H 18 99/61 L 99 Room Air all noted and reviewed including below
[2022-04-21] MEDS: SUCRALFATE 1 GM TAB PO SCH (20:30)
[2022-04-22] MEDS: FUROSEMIDE INJ 20 MG/2 ML VIAL IV SCH ×3 (00:28→17:20)
[2022-04-22 07:39] LABS: BUN Creatinine Ratio 42.9 (10-20); Calcium 8.1 mg/dl (8.5-10.1); Creatinine Clr Calc Pharmacy 84.6 ml/min; Est GFR (Non-African American) 94.9 ml/min; Potassium 3.4 mmol/L (3.5-5.1)
[2022-04-22] MEDS: SUCRALFATE 1 GM TAB PO SCH ×4 (08:28→20:38)
[2022-04-22] MEDS: UMECLIDINIUM BROMIDE 62.5MCG/BLISTER 7 PUFFS/INHALER INH SCH (08:28)
[2022-04-22] MEDS: PANTOprazole 40 MG TAB PO SCH ×2 (08:29→20:38)
[2022-04-22] MEDS: UREA (UREA-NA) 15 GM PACK PO SCH ×2 (08:29→20:38)
[2022-04-22] MEDS: FLUCONAZOLE 100 MG TAB PO SCH (08:29)
[2022-04-22] MEDS: POT PHOSPHATE MONOBASIC W/ SOD TAB PO SCH ×4 (08:30→20:39)
[2022-04-22] MEDS: NYSTATIN SUSP 500,000 U/5 ML UDC PO SCH ×4 (08:30→20:39)
[2022-04-22] MEDS ORDERED: POTASSIUM CHLORIDE CRTAB 20 MEQ TABCR PO STA (09:09)
[2022-04-22] MEDS: SODIUM CHLORIDE 0.9% 1000ML 1,000 ML IV SCH (09:26)
--- NOTE | 2022-04-22 10:34 | Nephrology Progress Note ---
Date of Service April 22, 2022 Assessment & Plan Admission and Anticipated Discharge Date Admission Date: April 15, 2022 Subjective Subjective S--no new issues. Po intake still low. PHYSICAL EXAMINATION: GENERAL: Elderly white male who appears to be quite malnourished and cachectic. He is awake, alert, oriented x3, able to give me a detailed account of his medical history, which is not very detailed, more complicated. HEENT: Mucous membrane is moist. NECK: Supple. No jugular venous distention. CHEST: Bilateral prolonged expiration, occasional wheezing. CARDIOVASCULAR: S1 and S2, regular. ABDOMEN: Soft, nontender. EXTREMITIES: Show no edema in the right. There is some chronic wound in his left leg, but is not different than usual. LABORATORY TESTS: na 127. urine osm high at 500+. AM labs today is pending. ASSESSMENT AND PLAN: A 72-year-old male with possible gastric malignancy and presented with significant weight loss, orthostatic syncope. He had hyponatremia at the time of admission and he still does. 1. Hyponatremia, most likely secondary to low osmolar diet with some worsening of SIADH. . He really has not had much solid food intake. And has been losing significant amount of weight. He does have possible gastric malignancy as well as underlying COPD, both of which makes him much more susceptible for underlying background SIADH. Given his oral intake of solid food, is still so low, it will be very difficult to increase the serum sodium, but he does not have a critically dangerous level of 120. RECOMMENDATIONS: 1. BMP q.24 hours. 2. Continue Fluid restriction 1200 mL per day. 3. Continue urea 15 grams twice daily, but we do have to keep an eye on the BUN level.--no need as outpt 4.Continue NS at 100 per hr and Iv lasix ( to lower urine osm)--Only as inpt--Na did go up to 130 with this. 5. As much as possible, try to encourage solid food intake. Unless that increase, it will be impossible to get his serum sodium up. 6 His Na outpt --125+ is acceptable and more likely. Results & Data ([facility]) Vital Signs (Past 12 Hours) Vital Signs Temp Pulse Pulse Resp BP BP Pulse Ox 04/22/22 07:27 36.6 C 90 18 94/56 L 98 04/22/22 04:00 04/22/22 03:46 36.6 C 91 H 18 113/59 L 99 04/22/22 00:21 95 H 04/21/22 23:46 36.7 C 93 H 18 105/64 99 Pulse Ox O2 Del Method O2 Del Method 04/22/22 07:27 Room Air 04/22/22 04:00 94 Room Air 04/22/22 03:46 Room Air 04/22/22 00:21 04/21/22 23:46 Room Air
--- NOTE | 2022-04-22 12:51 | Hospitalist Progress Note ---
Date of Service April 22, 2022 Assessment & Plan (1) GIB (gastrointestinal bleeding): Plan: Acute blood loss anemia EGD did not show any active bleeding area Hemoglobin remains stable DC Protonix drip, changed to Protonix twice daily Advanced diet Gastric mass Status post EGD showing gastric mass Pathology report: Stomach, gastric mass, biopsy: - Severe chronic active gastritis with ulceration. - Intestinal metaplasia, complete subtype. Negative for dysplasia. - Helicobacter pylori immunohistochemistry stain: Negative. - Clinical correlation is recommended. Comment: The history of a mass is noted. A neoplastic process is not identified in the current specimen. Areas of epithelium show nuclear atypia but this is in keeping with a reactive process related to inflammation rather than dysplasia. Patient remains hemodynamically stable CAT scans not showing any significant/suspicious mass Will need further work-up and management as an outpatient Further evaluation as an outpatient with EUS to find out character of the gastric mass (2) Sepsis: Plan: Patient denies fevers or chills but is hemodynamically unstable and has an elevated WBC count. Will continue broad spectrum antibiotics empirically, however, there is no clear source of infection at this time. Procalcitonin and lactate are pending. Leukocytosis improved from 19, to 11,000 Blood cultures: Negative Chest x-ray: No signs of pneumonia Urinalysis: No signs of UTI Received empiric Vanco and cefepime which have been discontinued Remains afebrile and does not have any signs of infection Elevated troponin Demand Ischemia Peaked to 1000, trending down to 600 EKG no signs of acute ischemia or infarct Echocardiogram no wall motion abnormality Copra Sampler consulted-appreciate input and recommendation (3) Dyspnea on exertion: Plan: Pneumomediastinum Likely multifactorial given malnourished state, possible GI bleeding, electrolyte disorders, etc. Echo in am. CT chest this evening. Pulmonary service consulted, likely secondary to coughing Ellipta ordered Mucinex Denies any more respiratory symptoms (4) Hyponatremia: Plan: This patient is hypovolemic. Given 3L NSS in the ER. 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 Hemoglobin remaining the same, around 9-10 Iron level 57 (7) Severe protein-calorie malnutrition: Plan: nutrition consult. CT chest/abd/pel to screen for contributing factors. EGD: gastric mass (8) Weight loss, abnormal: Plan: 30 lb weight loss in the past 2 months. CAT scans not showing any significant/suspicious mass Will need further work-up and management as an outpatient (9) Orthostasis: Plan: likely related to hypovolemia possible from GI bleeding as above. Lisinopril discontinued, may not need lisinopril as patient had significant weight loss for the past few months Monitor closely (10) Smoker: Plan: Smoking cessation advised. Nicoderm PRN (11) Thrush, oral: Plan: on Fluconazole for esophageal candidal plaques (12) Weakness: Plan: a result of all issues above. PT/OT consultations requested. (13) DVT prophylaxis: Plan: SCDs/ambulation as tolerated. Chemoprophylaxis contraindicated in setting of possible acute blood loss anemia. Full Code confirmed with him on admission Dispo-pending PT and OT evaluation: recommend return home plan of care discussed with patient in detail and at length all questions answered he is understanding, agreeable, comfortable with the plan of care Admission and Anticipated Discharge Date Admission Date: April 15, 2022 Subjective 04/22/2022 The patient was seen and examined in telemetry unit He has been awake but denies any other significant symptoms He has been eating solid food with fluid restrictions as advised Review of Systems Review of Systems: All systems reviewed and are unremarkable except as noted below Physical Exam Physical Exam: Lying in bed comfortably Constitutional: well developed, well nourished, + ill appearing and + thin Eyes: PERRL, conjunctivae normal, anicteric sclerae ENMT: external ear and nose normal, oropharynx normal Neck: trachea midline, no thyromegaly Respiratory: no respiratory distress Auscultation: lungs clear to auscultation bilaterally Cardiovascular: Rate/Rhythm: regular rate, regular rhythm and + tachycardic Heart Sounds: normal S1 and normal S2; no murmur Extremities: no edema Gastrointestinal (Abdomen): Inspection/Auscultation: normal bowel sounds; abdomen not distended Percussion/Palpation: abdomen soft; abdomen nontender Musculoskeletal: No acute arthritis involving any joint Neurologic: Alert, awake and oriented x3. No focal sensory or no motor deficit appreciated Lymphatic: no cervical or axillary lymphadenopathy Results & Data Results & Data ([facility]) Vital Signs (Past 12 Hours) Vital Signs Temp Pulse Pulse Resp BP BP Pulse Ox 04/22/22 08:00 75 04/22/22 08:00 04/22/22 11:15 36.7 C 102 H 18 110/55 L 99 04/22/22 07:27 36.6 C 90 18 94/56 L 98 04/22/22 04:00 04/22/22 03:46 36.6 C 91 H 18 113/59 L 99 Pulse Ox O2 Del Method O2 Del Method 04/22/22 08:00 04/22/22 08:00 Room Air 04/22/22 11:15 Room Air 04/22/22 07:27 Room Air 04/22/22 04:00 94 Room Air 04/22/22 03:46 Room Air Laboratory Results [facility] 04/21/22 04/22/22 08:49 06:50 Sodium 130 L 130 L Potassium 3.4 L 3.4 L Chloride 92 L 93 L Carbon Dioxide 32 33 H BUN 31 H 30 H Creatinine 0.89 0.70 Glucose 86 89 Calcium 8.3 L 8.1 L Medications Administered Current Inpatient Medications Acetaminophen (Acetaminophen 325 Mg Tab) 650 mg PO Q4H PRN PRN Reason: Pain or Fever Stop: 05/15/22 20:42 Last Admin: 04/18/22 06:19 Dose: 650 mg Fluconazole (Fluconazole 100 Mg Tab) 200 mg PO DAILY [facility] Stop: 05/07/22 09:01 Last Admin: 04/22/22 08:29 Dose: 200 mg Furosemide (Furosemide Inj 20 Mg/2 Ml Vial) 20 mg IV Q8H [facility] Stop: 05/19/22 16:59 Last Admin: 04/22/22 08:36 Dose: 20 mg Sodium Chloride (Nss 1000ml) 1,000 mls @ 80 mls/hr IV .[id number] NURIA Stop: 05/19/22 09:29 Last Admin: 04/22/22 09:26 Dose: 80 mls/hr Nystatin (Nystatin Susp 500,000 U/5 Ml Udc) 5 ml PO QID [facility] Stop: 04/25/22 20:59 Last Admin: 04/22/22 08:30 Dose: 5 ml Ondansetron HCl (Ondansetron Inj 2 Mg/Ml 2 Ml Vial) 4 mg IV Q6H PRN PRN Reason: Nausea Stop: 05/15/22 20:42 Pantoprazole Sodium (Pantoprazole 40 Mg Tab) 40 mg PO BID [facility] Stop: 05/17/22 20:59 Last Admin: 04/22/22 08:29 Dose: 40 mg Polyethylene Glycol (Polyethylene (Miralax) 17 Gm Pack) 17 gm PO DAILY PRN PRN Reason: Constipation Stop: 05/15/22 20:42 Potassium Phosphate (Pot Phosphate Monobasic W/ Sod Tab) 1 tab PO QID [facility] Stop: 05/16/22 08:59 Last Admin: 04/22/22 08:30 Dose: 1 tab Sucralfate (Sucralfate 1 Gm Tab) 1 gm PO QID [facility] Stop: 05/21/22 20:59 Last Admin: 04/22/22 08:28 Dose: 1 gm Umeclidinium Thornton (Umeclidinium Thornton 62.5mcg/Blister 7 Puffs/Inhaler) 1 puffs INH DAILY [facility] Stop: 05/16/22 13:59 Last Admin: 04/22/22 08:28 Dose: 1 puffs Urea (Urea (Urea-Na) 15 Gm Pack) 15 gm PO BID [facility] Stop: 05/18/22 16:14 Last Admin: 04/22/22 08:29 Dose: 15 gm
[2022-04-23] MEDS: SODIUM CHLORIDE 0.9% 1000ML 1,000 ML IV SCH (00:17)
[2022-04-23] MEDS: FUROSEMIDE INJ 20 MG/2 ML VIAL IV SCH ×2 (00:20→09:50)
[2022-04-23 06:44] LABS: Basophils # (auto) 0.06 K/uL (0-0.2); Basophils % (auto) 0.7 %; Eosinophils % (auto) 2.2 %; Hematocrit (blood only) 22.9 % (40.1-51.0); Hemoglobin 7.9 g/dl (14.0-18.0); Immature Granulocytes # (auto) 0.07 K/uL (0.00-0.02); Immature Granulocytes % (auto) 0.8 %; Lymphocytes # (auto) 2.49 K/uL (1.2-3.4); Lymphocytes % (auto) 27.8 %; Mean Corpuscular Hemoglobin 33.2 pg (25.0-34.0); Mean Corpuscular Hgb Conc 34.5 g/dL (32.0-36.0); Mean Corpuscular Volume 96.2 fL (80.0-100.0); Mean Platelet Volume 11.2 fL (9.4-12.4); Monocytes # (auto) 0.94 K/uL (0.24-0.82); Monocytes % (auto) 10.5 %; Neutrophils # (auto) 5.19 K/uL (1.4-6.5); Platelet Count 267 K/uL (130-400); RDW Coefficient of Variation 14.2 % (11.5-14.5); RDW Standard Deviation 48.5 fL (36.4-46.3); Red Blood Count 2.38 M/uL (4.63-6.08); White Blood Count 8.95 K/ul (4.8-10.8)
[2022-04-23 06:55] LABS: BUN Creatinine Ratio 39.7 (10-20); Calcium 8.1 mg/dl (8.5-10.1); Creatinine Clr Calc Pharmacy 76.5 ml/min; Est GFR (African American) 105.3 ml/min; Est GFR (Non-African American) 90.8 ml/min; Magnesium 1.3 mg/dl (1.7-2.4); Phosphorus 3.1 mg/dl (2.5-4.9); Potassium 3.1 mmol/L (3.5-5.1)
[2022-04-23 07:07] LABS: RBC Morphology Unremarkable
[2022-04-23] MEDS ORDERED: POTASSIUM CHLORIDE CRTAB 20 MEQ TABCR PO STA (09:36)
[2022-04-23] MEDS: FLUCONAZOLE 100 MG TAB PO SCH (09:43)
[2022-04-23] MEDS: PANTOprazole 40 MG TAB PO SCH ×2 (09:43→19:59)
[2022-04-23] MEDS: POT PHOSPHATE MONOBASIC W/ SOD TAB PO SCH ×4 (09:43→19:59)
[2022-04-23] MEDS: SUCRALFATE 1 GM TAB PO SCH ×4 (09:43→20:01)
[2022-04-23] MEDS: UMECLIDINIUM BROMIDE 62.5MCG/BLISTER 7 PUFFS/INHALER INH SCH (09:44)
[2022-04-23] MEDS: UREA (UREA-NA) 15 GM PACK PO SCH ×2 (09:44→20:01)
[2022-04-23] MEDS: NYSTATIN SUSP 500,000 U/5 ML UDC PO SCH ×4 (09:45→19:58)
[2022-04-23] MEDS: POTASSIUM CHLORIDE / WTR 10 MEQ/100 ML PLCT IV SCH ×2 (09:51→11:47)
--- NOTE | 2022-04-23 11:02 | Nephrology Progress Note ---
Date of Service April 23, 2022 Assessment & Plan Admission and Anticipated Discharge Date Admission Date: April 15, 2022 Subjective Subjective S--no new issues. Po intake still low. PHYSICAL EXAMINATION: GENERAL: Elderly white male who appears to be quite malnourished and cachectic. He is awake, alert, oriented x3, able to give me a detailed account of his medical history, which is not very detailed, more complicated. HEENT: Mucous membrane is moist. NECK: Supple. No jugular venous distention. CHEST: Bilateral prolonged expiration, occasional wheezing. CARDIOVASCULAR: S1 and S2, regular. ABDOMEN: Soft, nontender. EXTREMITIES: Show no edema in the right. There is some chronic wound in his left leg, but is not different than usual. LABORATORY TESTS: na 127. urine osm high at 500+. AM labs today is pending. ASSESSMENT AND PLAN: A 72-year-old male with possible gastric malignancy and presented with significant weight loss, orthostatic syncope. He had hyponatremia at the time of admission and he still does. 1. Hyponatremia, most likely secondary to low osmolar diet with some worsening of SIADH. . He really has not had much solid food intake. And has been losing significant amount of weight. He does have possible gastric malignancy as well as underlying COPD, both of which makes him much more susceptible for underlying background SIADH. Given his oral intake of solid food, is still so low, it will be very difficult to increase the serum sodium, but he does not have a critically dangerous level of 120. RECOMMENDATIONS: 1. BMP q.24 hours. 2. Continue Fluid restriction 1200 mL per day. 3. will stop urea. 4.Stop NS and lasix.--. na stable now at 130. 5 use torsemide 20 bid and Salt tab 1 gm bid. 5. As much as possible, try to encourage solid food intake. Unless that increase, it will be impossible to get his serum sodium up. 6 His Na outpt --125+ is acceptable and more likely. Results & Data ([facility]) Vital Signs (Past 12 Hours) Vital Signs Temp Pulse Pulse Resp BP Pulse Ox Pulse Ox 04/23/22 08:05 36.7 C 105 H 18 92/49 L 100 04/23/22 04:00 95 04/23/22 03:02 107 H 18 107/59 L 100 04/23/22 00:05 102 H O2 Del Method O2 Del Method 04/23/22 08:05 Room Air 04/23/22 04:00 Room Air 04/23/22 03:02 Room Air 04/23/22 00:05
[2022-04-23] MEDS: MAGNESIUM SULFATE / D5W 1 GM/100 ML BAG IV SCH ×2 (11:46→14:13)
[2022-04-23] MEDS: TORSEMIDE 10 MG TAB PO SCH ×2 (12:20→17:07)
[2022-04-23] MEDS: SODIUM CHLORIDE 1 GM TABLET PO SCH ×2 (12:20→20:00)
--- NOTE | 2022-04-23 13:19 | Hospitalist Progress Note ---
Date of Service April 23, 2022 Assessment & Plan (1) Hyponatremia: Plan: This patient is hypovolemic. Given 3L NSS in the ER. 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 of SIADH Web Production Manager consulted-appreciate input and recommendation Has been getting urea 50 mg twice daily IV NSS plus Lasix every 8 hours Fluid restriction to 1200mls Intravenous normal saline and Lasix have been discontinued and the patient is put on oral torsemide Sodium level remains reasonably stable Likely discharge tomorrow Orthostatic hypotension Possible component of hypovolemia Cosyntropin test negative Wang Hose IV fluids as per above-has been discontinued Electrolyte imbalance Remained hypokalemic and hypomagnesemic Replacement was given via IV and oral route Will monitor electrolytes tomorrow and if normal will be discharged home tomorrow (2) GIB (gastrointestinal bleeding): Plan: Acute blood loss anemia EGD did not show any active bleeding area Hemoglobin remains stable DC Protonix drip, changed to Protonix twice daily Advanced diet and he has been tolerating diet Gastric mass Status post EGD showing gastric mass Pathology report: Stomach, gastric mass, biopsy: - Severe chronic active gastritis with ulceration. - Intestinal metaplasia, complete subtype. Negative for dysplasia. - Helicobacter pylori immunohistochemistry stain: Negative. - Clinical correlation is recommended. Comment: The history of a mass is noted. A neoplastic process is not identified in the current specimen. Areas of epithelium show nuclear atypia but this is in keeping with a reactive process related to inflammation rather than dysplasia. Patient remains hemodynamically stable CAT scans not showing any significant/suspicious mass Will need further work-up and management as an outpatient Further evaluation as an outpatient with EUS to find out character of the gastric mass (3) Sepsis: Plan: Patient denies fevers or chills but is hemodynamically unstable and has an elevated WBC count. Will continue broad spectrum antibiotics empirically, however, there is no clear source of infection at this time. Procalcitonin and lactate are pending. Leukocytosis improved from 19, to 11,000 Blood cultures: Negative Chest x-ray: No signs of pneumonia Urinalysis: No signs of UTI Received empiric Vanco and cefepime which have been discontinued Remains afebrile and does not have any signs of infection Elevated troponin Demand Ischemia Peaked to 1000, trending down to 600 EKG no signs of acute ischemia or infarct Echocardiogram no wall motion abnormality Maritime Officer consulted-appreciate input and recommendation (4) Dyspnea on exertion: Plan: Pneumomediastinum Likely multifactorial given malnourished state, possible GI bleeding, electrolyte disorders, etc. Echo in am. CT chest this evening. Pulmonary service consulted, likely secondary to coughing Ellipta ordered Mucinex Denies any more respiratory symptoms (5) Hypokalemia: Plan: Replaced (6) Anemia: Plan: Possible acute blood loss anemia. Hemoglobin remaining the same, around 9-10 Iron level 57 (7) Severe protein-calorie malnutrition: Plan: nutrition consult. CT chest/abd/pel to screen for contributing factors. EGD: gastric mass (8) Weight loss, abnormal: Plan: 30 lb weight loss in the past 2 months. CAT scans not showing any significant/suspicious mass Will need further work-up and management as an outpatient (9) Orthostasis: Plan: likely related to hypovolemia possible from GI bleeding as above. Lisinopril discontinued, may not need lisinopril as patient had significant weight loss for the past few months Monitor closely (10) Smoker: Plan: Smoking cessation advised. Nicoderm PRN (11) Thrush, oral: Plan: on Fluconazole for esophageal candidal plaques (12) Weakness: Plan: a result of all issues above. PT/OT consultations requested. (13) DVT prophylaxis: Plan: SCDs/ambulation as tolerated. Chemoprophylaxis contraindicated in setting of possible acute blood loss anemia. Full Code confirmed with him on admission Dispo-pending PT and OT evaluation: recommend return home plan of care discussed with patient in detail and at length all questions answered he is understanding, agreeable, comfortable with the plan of care Admission and Anticipated Discharge Date Admission Date: April 15, 2022 Subjective 04/22/2022 The patient was seen and examined in telemetry unit He has been awake but denies any other significant symptoms He has been eating solid food with fluid restrictions as advised 04/23/2022 The patient was seen and examined in telemetry unit He remained stable without any symptoms His electrolytes are still abnormal Denies any other significant symptoms Review of Systems Review of Systems: All systems reviewed and are unremarkable except as noted below Physical Exam Physical Exam: Lying in bed comfortably Constitutional: well developed, well nourished, + ill appearing and + thin Eyes: PERRL, conjunctivae normal, anicteric sclerae ENMT: external ear and nose normal, oropharynx normal Neck: trachea midline, no thyromegaly Respiratory: no respiratory distress Auscultation: lungs clear to auscultation bilaterally Cardiovascular: Rate/Rhythm: regular rate, regular rhythm and + tachycardic Heart Sounds: normal S1 and normal S2; no murmur Extremities: no edema Gastrointestinal (Abdomen): Inspection/Auscultation: normal bowel sounds; abdomen not distended Percussion/Palpation: abdomen soft; abdomen nontender Musculoskeletal: No acute arthritis involving any joint Neurologic: plantar reflexes intact bilaterally and moves all extremities; no focal motor deficits and not confused Psychiatric: A+Ox3, euthymic affect Lymphatic: no cervical or axillary lymphadenopathy Results & Data Results & Data ([facility]) Vital Signs (Past 12 Hours) Vital Signs Temp Pulse Pulse Resp BP Pulse Ox Pulse Ox 04/23/22 08:00 04/23/22 08:00 92 H 04/23/22 08:05 36.7 C 105 H 18 92/49 L 100 04/23/22 04:00 95 04/23/22 03:02 107 H 18 107/59 L 100 O2 Del Method O2 Del Method 04/23/22 08:00 Room Air 04/23/22 08:00 04/23/22 08:05 Room Air 04/23/22 04:00 Room Air 04/23/22 03:02 Room Air Laboratory Results Short CBC 04/23/22 Range/Units 05:48 WBC 8.95 (4.8-10.8) K/ul Hgb 7.9 L (14.0-18.0) g/dl Hct 22.9 L (40.1-51.0) % Plt Count 267 (130-400) K/uL BMP 04/23/22 05:48 Sodium 130 L Potassium 3.1 L Chloride 92 L Carbon Dioxide 33 H BUN 31 H Creatinine 0.78 Glucose 88 Calcium 8.1 L Medications Administered Current Inpatient Medications Acetaminophen (Acetaminophen 325 Mg Tab) 650 mg PO Q4H PRN PRN Reason: Pain or Fever Stop: 05/15/22 20:42 Last Admin: 04/18/22 06:19 Dose: 650 mg Fluconazole (Fluconazole 100 Mg Tab) 200 mg PO DAILY [facility] Stop: 05/07/22 09:01 Last Admin: 04/23/22 09:43 Dose: 200 mg Magnesium Sulfate/Dextrose (Magnesium Sulfate / D5w) 1 gm in 100 mls @ 50 mls/hr IV Q2H [facility] Stop: 04/23/22 13:44 Last Admin: 04/23/22 11:46 Dose: 50 mls/hr Nystatin (Nystatin Susp 500,000 U/5 Ml Udc) 5 ml PO QID [facility] Stop: 04/25/22 20:59 Last Admin: 04/23/22 09:45 Dose: 5 ml Ondansetron HCl (Ondansetron Inj 2 Mg/Ml 2 Ml Vial) 4 mg IV Q6H PRN PRN Reason: Nausea Stop: 05/15/22 20:42 Pantoprazole Sodium (Pantoprazole 40 Mg Tab) 40 mg PO BID [facility] Stop: 05/17/22 20:59 Last Admin: 04/23/22 09:43 Dose: 40 mg Polyethylene Glycol (Polyethylene (Miralax) 17 Gm Pack) 17 gm PO DAILY PRN PRN Reason: Constipation Stop: 05/15/22 20:42 Potassium Phosphate (Pot Phosphate Monobasic W/ Sod Tab) 1 tab PO QID [facility] Stop: 05/16/22 08:59 Last Admin: 04/23/22 09:43 Dose: 1 tab Sodium Chloride (Sodium Chloride 1 Gm Tablet) 1 gm PO BID [facility] Stop: 05/23/22 11:14 Last Admin: 04/23/22 12:20 Dose: 1 gm Sucralfate (Sucralfate 1 Gm Tab) 1 gm PO QID [facility] Stop: 05/21/22 20:59 Last Admin: 04/23/22 09:43 Dose: 1 gm Torsemide (Torsemide 10 Mg Tab) 20 mg PO BID17 [facility] Stop: 05/23/22 11:14 Last Admin: 04/23/22 12:20 Dose: 20 mg Umeclidinium [place] (Umeclidinium [place] 62.5mcg/Blister 7 Puffs/Inhaler) 1 puffs INH DAILY [facility] Stop: 05/16/22 13:59 Last Admin: 04/23/22 09:44 Dose: 1 puffs Urea (Urea (Urea-Na) 15 Gm Pack) 15 gm PO BID [facility] Stop: 05/18/22 16:14 Last Admin: 04/23/22 09:44 Dose: 15 gm
[2022-04-24 06:32] LABS: Basophils # (auto) 0.05 K/uL (0-0.2); Basophils % (auto) 0.5 %; Eosinophils % (auto) 2.2 %; Hematocrit (blood only) 23.5 % (40.1-51.0); Hemoglobin 7.9 g/dl (14.0-18.0); Immature Granulocytes # (auto) 0.05 K/uL (0.00-0.02); Immature Granulocytes % (auto) 0.5 %; Lymphocytes # (auto) 2.89 K/uL (1.2-3.4); Lymphocytes % (auto) 31.1 %; Mean Corpuscular Hemoglobin 32.6 pg (25.0-34.0); Mean Corpuscular Hgb Conc 33.6 g/dL (32.0-36.0); Mean Corpuscular Volume 97.1 fL (80.0-100.0); Mean Platelet Volume 11.3 fL (9.4-12.4); Monocytes # (auto) 0.99 K/uL (0.24-0.82); Monocytes % (auto) 10.7 %; Platelet Count 286 K/uL (130-400); RDW Coefficient of Variation 14.3 % (11.5-14.5); RDW Standard Deviation 50.4 fL (36.4-46.3); Red Blood Count 2.42 M/uL (4.63-6.08); White Blood Count 9.28 K/ul (4.8-10.8)
[2022-04-24 06:58] LABS: Calcium 8.4 mg/dl (8.5-10.1); Creatinine Clr Calc Pharmacy 63.6 ml/min; Est GFR (Non-African American) 80.2 ml/min; Magnesium 1.7 mg/dl (1.7-2.4); Phosphorus 3.1 mg/dl (2.5-4.9); Potassium 3.3 mmol/L (3.5-5.1)
[2022-04-24 07:22] LABS: Polychromasia 1+
[2022-04-24] MEDS ORDERED: POTASSIUM CHLORIDE CRTAB 20 MEQ TABCR PO STA (07:53)
[2022-04-24] MEDS: SUCRALFATE 1 GM TAB PO SCH ×2 (08:33→12:15)
[2022-04-24] MEDS: UREA (UREA-NA) 15 GM PACK PO SCH (08:33)
[2022-04-24] MEDS: NYSTATIN SUSP 500,000 U/5 ML UDC PO SCH ×2 (08:34→12:15)
[2022-04-24] MEDS: POT PHOSPHATE MONOBASIC W/ SOD TAB PO SCH ×2 (08:34→12:15)
[2022-04-24] MEDS: TORSEMIDE 10 MG TAB PO SCH (08:34)
[2022-04-24] MEDS: PANTOprazole 40 MG TAB PO SCH (08:34)
[2022-04-24] MEDS: SODIUM CHLORIDE 1 GM TABLET PO SCH (08:34)
[2022-04-24] MEDS: FLUCONAZOLE 100 MG TAB PO SCH (08:34)
[2022-04-24] MEDS: UMECLIDINIUM BROMIDE 62.5MCG/BLISTER 7 PUFFS/INHALER INH SCH (08:35)
[2022-04-24] MEDS: POTASSIUM CHLORIDE / WTR 10 MEQ/100 ML PLCT IV SCH ×2 (08:47→09:48)
--- NOTE | 2022-04-24 09:14 | Nephrology Progress Note ---
Date of Service April 24, 2022 Assessment & Plan Admission and Anticipated Discharge Date Admission Date: April 15, 2022 Subjective Subjective S--no new issues. Po intake still low. PHYSICAL EXAMINATION: GENERAL: Elderly white male who appears to be quite malnourished and cachectic. He is awake, alert, oriented x3, able to give me a detailed account of his medical history, which is not very detailed, more complicated. HEENT: Mucous membrane is moist. NECK: Supple. No jugular venous distention. CHEST: Bilateral prolonged expiration, occasional wheezing. CARDIOVASCULAR: S1 and S2, regular. ABDOMEN: Soft, nontender. EXTREMITIES: Show no edema in the right. There is some chronic wound in his left leg, but is not different than usual. LABORATORY TESTS: na 129 today. ASSESSMENT AND PLAN: A 72-year-old male with possible gastric malignancy and presented with significant weight loss, orthostatic syncope. He had hyponatremia at the time of admission and he still does. 1. Hyponatremia, most likely secondary to low osmolar diet with some worsening of SIADH. . He really has not had much solid food intake. And has been losing significant amount of weight. He does have possible gastric malignancy as well as underlying COPD, both of which makes him much more susceptible for underlying background SIADH. Given his oral intake of solid food, is still so low, it will be very difficult to increase the serum sodium, but he does not have a critically dangerous level of 120. RECOMMENDATIONS: 1. BMP q.24 hours. 2. Continue Fluid restriction 1200 mL per day. 3. Continue urea 15 bid 4.use torsemide 20 bid and Salt tab 1 gm bid. Add K.cl 20 daily 5. As much as possible, try to encourage solid food intake. Unless that increase, it will be impossible to get his serum sodium up. 6 His Na for outpt --125+ is acceptable and more likely to happen. Unlikely it will be 130+. Results & Data ([facility]) Vital Signs (Past 12 Hours) Vital Signs Temp Pulse Pulse Resp BP BP Pulse Ox 04/24/22 05:59 58 L 04/24/22 07:21 36.5 C 59 L 18 104/58 L 93 04/24/22 03:14 36.6 C 87 18 102/60 99 04/23/22 23:53 89 04/23/22 23:22 36.6 C 103 H 18 103/64 96 O2 Del Method 04/24/22 05:59 04/24/22 07:21 Room Air 04/24/22 03:14 Room Air 04/23/22 23:53 04/23/22 23:22 Room Air
[2022-04-24] MEDS ORDERED: POTASSIUM CHLORIDE 20 MEQ/15 ML UDC PO SCH (09:30)
--- NOTE | 2022-04-24 10:46 | Hospitalist Progress Note ---
Date of Service April 24, 2022 Assessment & Plan (1) Hyponatremia: Plan: This patient is hypovolemic. Given 3L NSS in the ER. 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 of SIADH Vice President Compliance consulted-appreciate input and recommendation Has been getting urea 50 mg twice daily IV NSS plus Lasix every 8 hours Fluid restriction to 1200mls Intravenous normal saline and Lasix have been discontinued and the patient is put on oral torsemide Sodium level remains reasonably stable Sodium level remains stable at 129 and the patient has been taking his regular diet Discussed with the scarf gluer and the patient can be discharged today Strongly advised to follow the diet and take the medications as advised Orthostatic hypotension Possible component of hypovolemia Cosyntropin test negative Wang Hose IV fluids as per above-has been discontinued Denies any more orthostatic symptoms Advised to take extra precautions while ambulant Electrolyte imbalance Remained hypokalemic and hypomagnesemic Replacement was given via IV and oral route Will monitor electrolytes tomorrow and if normal will be discharged home tomorrow Potassium level remains low at 3.3 Will give supplement and repeat PRP in 3 to 4 days (2) GIB (gastrointestinal bleeding): Plan: Acute blood loss anemia EGD did not show any active bleeding area Hemoglobin remains stable DC Protonix drip, changed to Protonix twice daily Advanced diet and he has been tolerating diet Gastric mass Status post EGD showing gastric mass Pathology report: Stomach, gastric mass, biopsy: - Severe chronic active gastritis with ulceration. - Intestinal metaplasia, complete subtype. Negative for dysplasia. - Helicobacter pylori immunohistochemistry stain: Negative. - Clinical correlation is recommended. Comment: The history of a mass is noted. A neoplastic process is not identified in the current specimen. Areas of epithelium show nuclear atypia but this is in keeping with a reactive process related to inflammation rather than dysplasia. Patient remains hemodynamically stable CAT scans not showing any significant/suspicious mass Will need further work-up and management as an outpatient Further evaluation as an outpatient with EUS to find out character of the gastric mass (3) Sepsis: Plan: Patient denies fevers or chills but is hemodynamically unstable and has an elevated WBC count. Will continue broad spectrum antibiotics empirically, however, there is no clear source of infection at this time. Procalcitonin and lactate are pending. Leukocytosis improved from 19, to 11,000 Blood cultures: Negative Chest x-ray: No signs of pneumonia Urinalysis: No signs of UTI Received empiric Vanco and cefepime which have been discontinued Remains afebrile and does not have any signs of infection Elevated troponin Demand Ischemia Peaked to 1000, trending down to 600 EKG no signs of acute ischemia or infarct Echocardiogram no wall motion abnormality Accountant Budget consulted-appreciate input and recommendation (4) Dyspnea on exertion: Plan: Pneumomediastinum Likely multifactorial given malnourished state, possible GI bleeding, electrolyte disorders, etc. Echo in am. CT chest this evening. Pulmonary service consulted, likely secondary to coughing Ellipta ordered Mucinex Denies any more respiratory symptoms (5) Hypokalemia: Plan: Replaced (6) Anemia: Plan: Possible acute blood loss anemia. Hemoglobin remaining the same, around 9-10 Iron level 57 (7) Severe protein-calorie malnutrition: Plan: nutrition consult. CT chest/abd/pel to screen for contributing factors. EGD: gastric mass (8) Weight loss, abnormal: Plan: 30 lb weight loss in the past 2 months. CAT scans not showing any significant/suspicious mass Will need further work-up and management as an outpatient (9) Orthostasis: Plan: likely related to hypovolemia possible from GI bleeding as above. Lisinopril discontinued, may not need lisinopril as patient had significant weight loss for the past few months Monitor closely (10) Smoker: Plan: Smoking cessation advised. Nicoderm PRN (11) Thrush, oral: Plan: on Fluconazole for esophageal candidal plaques (12) Weakness: Plan: a result of all issues above. PT/OT consultations requested. (13) DVT prophylaxis: Plan: SCDs/ambulation as tolerated. Chemoprophylaxis contraindicated in setting of possible acute blood loss anemia. Full Code confirmed with him on admission Dispo-pending PT and OT evaluation: recommend return home plan of care discussed with patient in detail and at length all questions answered he is understanding, agreeable, comfortable with the plan of care Case discussed with the patient and the in detail He will be discharged home this afternoon Admission and Anticipated Discharge Date Admission Date: April 15, 2022 Subjective 04/22/2022 The patient was seen and examined in telemetry unit He has been awake but denies any other significant symptoms He has been eating solid food with fluid restrictions as advised 04/23/2022 The patient was seen and examined in telemetry unit He remained stable without any symptoms His electrolytes are still abnormal Denies any other significant symptoms 04/24/2022 The patient was seen and examined in telemetry unit He has been weak but does not have any other symptoms He is physically and mentally ready to be discharged Review of Systems Review of Systems: All systems reviewed and are unremarkable except as noted below Neurologic: Generally weak Physical Exam Physical Exam: Lying in bed comfortably Constitutional: well developed, well nourished, + ill appearing and + thin Eyes: PERRL, conjunctivae normal, anicteric sclerae ENMT: external ear and nose normal, oropharynx normal Neck: trachea midline, no thyromegaly Respiratory: no respiratory distress Auscultation: lungs clear to auscultation bilaterally Cardiovascular: Rate/Rhythm: regular rate, regular rhythm and + tachycardic Heart Sounds: normal S1 and normal S2; no murmur Extremities: no edema Gastrointestinal (Abdomen): Inspection/Auscultation: normal bowel sounds; abdomen not distended Percussion/Palpation: abdomen soft; abdomen nontender Musculoskeletal: No acute arthritis in any joint Neurologic: plantar reflexes intact bilaterally and moves all extremities; no focal motor deficits and not confused Psychiatric: A+Ox3, euthymic affect Lymphatic: no cervical or axillary lymphadenopathy Results & Data Results & Data ([facility]) Vital Signs (Past 12 Hours) Vital Signs Temp Pulse Pulse Resp BP BP Pulse Ox 04/24/22 08:32 04/24/22 05:59 58 L 04/24/22 07:21 36.5 C 59 L 18 104/58 L 93 04/24/22 03:14 36.6 C 87 18 102/60 99 04/23/22 23:53 89 04/23/22 23:22 36.6 C 103 H 18 103/64 96 O2 Del Method 04/24/22 08:32 Room Air 04/24/22 05:59 04/24/22 07:21 Room Air 04/24/22 03:14 Room Air 04/23/22 23:53 04/23/22 23:22 Room Air Laboratory Results Short CBC 04/24/22 Range/Units 05:51 WBC 9.28 (4.8-10.8) K/ul Hgb 7.9 L (14.0-18.0) g/dl Hct 23.5 L (40.1-51.0) % Plt Count 286 (130-400) K/uL BMP 04/24/22 05:51 Sodium 129 L Potassium 3.3 L Chloride 88 L Carbon Dioxide 37 H BUN 38 H Creatinine 0.95 Glucose 83 Calcium 8.4 L Medications Administered Current Inpatient Medications Acetaminophen (Acetaminophen 325 Mg Tab) 650 mg PO Q4H PRN PRN Reason: Pain or Fever Stop: 05/15/22 20:42 Last Admin: 04/18/22 06:19 Dose: 650 mg Fluconazole (Fluconazole 100 Mg Tab) 200 mg PO DAILY [facility] Stop: 05/07/22 09:01 Last Admin: 04/24/22 08:34 Dose: 200 mg Nystatin (Nystatin Susp 500,000 U/5 Ml Udc) 5 ml PO QID [facility] Stop: 04/25/22 20:59 Last Admin: 04/24/22 08:34 Dose: 5 ml Ondansetron HCl (Ondansetron Inj 2 Mg/Ml 2 Ml Vial) 4 mg IV Q6H PRN PRN Reason: Nausea Stop: 05/15/22 20:42 Pantoprazole Sodium (Pantoprazole 40 Mg Tab) 40 mg PO BID [facility] Stop: 05/17/22 20:59 Last Admin: 04/24/22 08:34 Dose: 40 mg Polyethylene Glycol (Polyethylene (Miralax) 17 Gm Pack) 17 gm PO DAILY PRN PRN Reason: Constipation Stop: 05/15/22 20:42 Potassium Chloride (Potassium Chloride 20 Meq/15 Ml Udc) 20 meq PO QAM [facility] Stop: 05/24/22 09:29 Last Admin: 04/24/22 10:12 Dose: 20 meq Potassium Phosphate (Pot Phosphate Monobasic W/ Sod Tab) 1 tab PO QID [facility] Stop: 05/16/22 08:59 Last Admin: 04/24/22 08:34 Dose: 1 tab Sodium Chloride (Sodium Chloride 1 Gm Tablet) 1 gm PO BID [facility] Stop: 05/23/22 11:14 Last Admin: 04/24/22 08:34 Dose: 1 gm Sucralfate (Sucralfate 1 Gm Tab) 1 gm PO QID [facility] Stop: 05/21/22 20:59 Last Admin: 04/24/22 08:33 Dose: 1 gm Torsemide (Torsemide 10 Mg Tab) 20 mg PO [id number] [facility] Stop: 05/23/22 11:14 Last Admin: 12/09/22 08:34 Dose: 20 mg Umeclidinium [place] (Umeclidinium [place] 62.5mcg/Blister 7 Puffs/Inhaler) 1 puffs INH DAILY [facility] Stop: 05/16/22 13:59 Last Admin: 04/24/22 08:35 Dose: 1 puffs Urea (Urea (Urea-Na) 15 Gm Pack) 15 gm PO BID [facility] Stop: 05/18/22 16:14 Last Admin: 04/24/22 08:33 Dose: 15 gm
--- NOTE | 2022-04-25 08:37 | Discharge Summary ---
Date of Service April 24, 2022 Admission HPI Per Admitting Provider 72 yo man with a history of lifelong smoking presents with 30 pound weight loss in the last couple of months. He reports a decreased appetite during this time and states that when he eats anything solid, he will experience early satiety and dry heaves without vomiting. He reports ongoing loose stools that he describes as black in color. He denies any abdominal pain. He denies any pain with swallowing. Significant other is at bedside and having lived with him for 16 years, she states that he will only eat a couple of bites of food 1-2 times per day. Patient states he can drink water and other liquids without much of an issue. He is currently requesting a [employer]. He reports lightheadedness when going from sitting to standing position in the last few days, and states that he has been so winded he can no longer walk across the street to mother's house to give her daily medications. Over the last few days, his spouse has had to do this. The lightheadedness came before he passed out and fell today. It also happened last week. He denies any fevers or chills. He typically sleeps in the recliner and spouse states that he has been taking more naps during the day and has been very weak. The patient lives in a double wide trailer with well water but reports to only drink bottled water. No medication changes recently. Sees Dr. Castillo per his report. Admission Exam Per Admitting Provider Physical Exam: CONSTITUTIONAL:cachectic, vitals as above, generally in no distress butappears chronically ill EYES: PERRL, normal conjunctivae, no scleral icterus, ENT: external ear and nose normal,poor dentition,whitish substance on tongue consistent with thrush NECK: trachea midline RESPIRATORY: clear to auscultation bilaterally, no crackles, rales or wheezes, normal respiratory effort CARDIOVASCULAR:tachy rateand regular rhythm, S1 and 2 heard without murmurs, gallops or rubs, no JVD, no peripheral edema CHEST: inspection of chest was normal GASTROINTESTINAL: soft, nontender, ND, no guarding MUSCULOSKELETAL: strength 5/5 throughout, he is able to sit up independently in the bed, pulling himself up with the handrails. Head is normocephalic and atraumatic SKIN: warm and dry, no rashes,wound on LLEthat is scabbed over and no surrounding redness or drainage. Well healedecchymotic area on his posterior right shoulder. NEUROLOGIC: CN 2-12 grossly intact, no sensory deficit, normal cognition, normal speech, no tremor PSYCHIATRIC: alert cooperative and oriented to person, place and time. Euthymic mood, makes good eye contact, language grossly intact, recent and remote memory grossly intact. Principal Diagnosis Hyponatremia secondary to SIADH, electrolyte imbalance, gastric mass under investigation, weight loss, generalized weakness Discharge Exam Lying in bed comfortably Constitutional well developed, well nourished, + ill appearing and + thin Eyes PERRL, conjunctivae normal, anicteric sclerae ENMT external ear and nose normal, oropharynx normal Neck trachea midline, no thyromegaly Respiratory no respiratory distress Auscultation: lungs clear to auscultation bilaterally Cardiovascular Rate/Rhythm: regular rate, regular rhythm and + tachycardic Heart Sounds: normal S1 and normal S2; no murmur Extremities: no edema Gastrointestinal (Abdomen) Inspection/Auscultation: normal bowel sounds; abdomen not distended Percussion/Palpation: abdomen soft; abdomen nontender Neurologic plantar reflexes intact bilaterally and moves all extremities; no focal motor deficits and not confused Psychiatric A+Ox3, euthymic affect Lymphatic no cervical or axillary lymphadenopathy Discharge Data Allergies Allergy/AdvReac Type Severity Reaction Status Date / Time No Known Allergies Allergy Verified 09/27/17 13:03 Consultations 04/15/22 17:42 ED Decision to Admit Stat 04/15/22 19:27 Consult Gastroenterology Routine 04/16/22 07:57 Consult Cardiology Routine 04/16/22 10:48 Consult Pulmonology Routine 04/18/22 11:09 Consult Nephrology Routine Procedures Performed Operation Date: 04/17/22 16:30 Actual Procedures p EGD Biopsy Cytology - Amy Gutierrez, Ordered Studies 04/15/22 15:58 CT cervical spine wo con Stat CT head/brain wo con Stat 04/15/22 18:52 CT Abd and Pelvis [CT abd pelvis wo con] Routine CT chest diagnostic wo con Routine Hospital Course (1) Hyponatremia: This patient is hypovolemic. Given 3L NSS in the ER. 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 of SIADH Environmental Compliance Inspector consulted-appreciate input and recommendation Has been getting urea 50 mg twice daily IV NSS plus Lasix every 8 hours Fluid restriction to 1200mls Intravenous normal saline and Lasix have been discontinued and the patient is put on oral torsemide Sodium level remains reasonably stable Sodium level remains stable at 129 and the patient has been taking his regular diet Discussed with the vp director of creative strategy and the patient can be discharged today Strongly advised to follow the diet and take the medications as advised Orthostatic hypotension Possible component of hypovolemia Cosyntropin test negative Wang Hose IV fluids as per above-has been discontinued Denies any more orthostatic symptoms Advised to take extra precautions while ambulant Electrolyte imbalance Remained hypokalemic and hypomagnesemic Replacement was given via IV and oral route Will monitor electrolytes tomorrow and if normal will be discharged home tomorrow Potassium level remains low at 3.3 Will give supplement and repeat PRP in 3 to 4 days (2) GIB (gastrointestinal bleeding): Acute blood loss anemia EGD did not show any active bleeding area Hemoglobin remains stable DC Protonix drip, changed to Protonix twice daily Advanced diet and he has been tolerating diet Gastric mass Status post EGD showing gastric mass Pathology report: Stomach, gastric mass, biopsy: - Severe chronic active gastritis with ulceration. - Intestinal metaplasia, complete subtype. Negative for dysplasia. - Helicobacter pylori immunohistochemistry stain: Negative. - Clinical correlation is recommended. Comment: The history of a mass is noted. A neoplastic process is not identified in the current specimen. Areas of epithelium show nuclear atypia but this is in keeping with a reactive process related to inflammation rather than dysplasia. Patient remains hemodynamically stable CAT scans not showing any significant/suspicious mass Will need further work-up and management as an outpatient Further evaluation as an outpatient with EUS to find out character of the gastric mass (3) Sepsis: Patient denies fevers or chills but is hemodynamically unstable and has an elevated WBC count. Will continue broad spectrum antibiotics empirically, however, there is no clear source of infection at this time. Procalcitonin and lactate are pending. Leukocytosis improved from 19, to 11,000 Blood cultures: Negative Chest x-ray: No signs of pneumonia Urinalysis: No signs of UTI Received empiric Vanco and cefepime which have been discontinued Remains afebrile and does not have any signs of infection Elevated troponin Demand Ischemia Peaked to 1000, trending down to 600 EKG no signs of acute ischemia or infarct Echocardiogram no wall motion abnormality Marine Design Engineer consulted-appreciate input and recommendation (4) Dyspnea on exertion: Pneumomediastinum Likely multifactorial given malnourished state, possible GI bleeding, electrolyte disorders, etc. Echo in am. CT chest this evening. Pulmonary service consulted, likely secondary to coughing Ellipta ordered Mucinex Denies any more respiratory symptoms (5) Hypokalemia: Replaced (6) Anemia: Possible acute blood loss anemia. Hemoglobin remaining the same, around 9-10 Iron level 57 (7) Severe protein-calorie malnutrition: nutrition consult. CT chest/abd/pel to screen for contributing factors. EGD: gastric mass (8) Weight loss, abnormal: 30 lb weight loss in the past 2 months. CAT scans not showing any significant/suspicious mass Will need further work-up and management as an outpatient (9) Orthostasis: likely related to hypovolemia possible from GI bleeding as above. Lisinopril discontinued, may not need lisinopril as patient had significant weight loss for the past few months Monitor closely (10) Smoker: Smoking cessation advised. Nicoderm PRN (11) Thrush, oral: on Fluconazole for esophageal candidal plaques (12) Weakness: a result of all issues above. PT/OT consultations requested. (13) DVT prophylaxis: SCDs/ambulation as tolerated. Chemoprophylaxis contraindicated in setting of possible acute blood loss anemia. Full Code confirmed with him on admission Dispo-pending PT and OT evaluation: recommend return home plan of care discussed with patient in detail and at length all questions answered he is understanding, agreeable, comfortable with the plan of care Case discussed with the patient and the in detail He will be discharged home this afternoon Total Time Total Time Spent Total Time Spent (In Minutes): 45 minutes Discharge Plan Discharge Items Patient Disposition: Home - Home Health Services Reason For Visit: WEAKNESS, HYPOKALEMIA, HYPONATREMIA Discharge Diagnosis: Hyponatremia secondary to SIADH, electrolyte imbalance, gastric mass under investigation, weight loss, generalized weakness Condition on Discharge: Fair Activity: Resume your previous activity Non-emergency contact: Primary Care Provider Call non-emergency contact if: you have any medication questions and your symptoms worsen Follow-up/Referrals: Vivek Castillo MD [Primary Care Provider] - (Date & Time 04/29/2022 11:20 AM Provider Vivek Castillo MD [facility] ) Diet: Regular Fluids: 1200ml (5 cups) Diet Texture: Easy to Chew Ambulatory Orders: Basic Metabolic Panel (Routine) Timeframe: 1 Week Location: Determined by Patient Ordered By: Naomi Poole Attending Provider Instructions: Please take precautions to avoid falls Take your medications as advised Do not drink more than 1200 mL of fluids in 24 hours Please give appointments with your healthcare providers Try to take extra table salt during your regular meals Have your BMP checked within 1 week and reported to the vp director of creative strategy [facility] GI service will call you for a follow-up EUS and colonoscopy Pending Studies at Discharge: No Stand-Alone Forms: My [facility], Smoking Cessation Medications and DC Order Prescriptions: New fluconazole 100 mg Tablet 200 mg PO DAILY 13 Days Qty: 26 0RF nystatin 100,000 unit/mL Suspension 5 ml PO QID 10 Days Qty: 200 0RF Phospha 250 Neutral 250 mg Tablet 1 tab PO QID Qty: 120 0RF sucralfate 1 gram Tablet 1 g PO QID 30 Days Qty: 120 0RF torsemide 10 mg Tablet 20 mg PO BID17 30 Days Qty: 60 0RF pantoprazole 40 mg Tablet,Delayed Release (Dr/Ec) 40 mg PO BID 30 Days Qty: 60 0RF potassium chloride 20 mEq tablet extended release 20 meq PO BID Qty: 60 0RF Continued Lactinex 1 million cell tablet,chewable 2 tab PO BID Qty: 60 0RF Rx Instructions: administer with food or milk Discontinued lisinopril 10 mg tablet 10 mg PO DAILY Discharge Orders: Discharge Order (Routine); Ordered 04/24/22 Ordered By: Naomi Harper/Other Patient Handouts: Antidiuretic Hormone, Taking a Diuretic, Hy ponatremia Dc, Orthostatic Hypotension Admission Data Admit Date/Time: 04/15/22 18:10 Attending Provider: Naomi Woodson Admit Provider: Sunita Vera Primary Care Provider: Vivek Castillo Other Providers: Meri Anne Jr ; Sunita Vera ; Jono Padilla ; Enmanuel Hidalgo ; Kosta Groves ; Guzman Menchaca ; [facility] Other Interventions: Discharge Summary Assessment (RN) Last Done: 04/24/22 13:53
== END 2022-04-24 14:39 | disposition home health service (06) | DRG 377 ==
LOC: ED 15:29 → EDINP 18:10 → SUATTDRO 18:10 → 2S 20:42